=== PATIENT | female | born 1990 | race Caucasian/White ===

== ENCOUNTER 2022-12-29 11:07 | Outpatient (OUT) | payer OTHER, SELFPAY ==
[2022-12-29 12:00] LABS: Estimated Average Glucose 111 mg/dL; Glycohemoglobin A1C 5.5 % (4.5-6.2)
[2022-12-29 12:06] LABS: Basophils Absolute Auto 0.1 10^3/uL (0.0-0.1); Basophils Percent Auto 0.7 % (0.2-2.0); Eosinophils Absolute Auto 0.2 10^3/uL (0.0-0.7); Eosinophils Percent Auto 2.1 % (0.9-7.0); Hematocrit 42.6 % (36.0-48.0); Hemoglobin 13.9 g/dL (12.0-16.0); Immature Granulocytes Abs Auto 0.03 10^3/uL (0.00-0.03); Immature Granulocytes Pct Auto 0.3 % (0.0-0.5); Lymphocytes Absolute Auto 2.8 10^3/uL (1.2-3.8); Lymphocytes Percent Auto 32.8 % (20.5-60.0); Mean Corpuscular HGB Conc 32.6 g/dL (29.9-35.2); Mean Corpuscular Hemoglobin 27.6 pg (26.7-34.0); Mean Corpuscular Volume 84.7 fL (81.0-99.0); Mean Platelet Volume 8.6 fL (9.5-13.5); Monocytes Absolute Auto 0.4 10^3/uL (0.3-0.8); Monocytes Percent Auto 4.4 % (1.7-12.0); Neutrophils Absolute Auto 5.1 10^3/uL (1.4-6.5); Neutrophils Percent Auto 59.7 % (43.0-75.0); Platelet Count 393 10^3/uL (150-450); Red Blood Count 5.03 10^6/uL (4.20-5.40); Red Cell Distribution Width 14.8 % (11.0-15.0); White Blood Count 8.6 10^3/uL (4.0-11.0)
[2022-12-29 13:42] LABS: Alanine Aminotransferase 33 U/L (14-59); Albumin Globulin Ratio 0.9; Albumin Level 3.8 g/dL (3.4-5.0); Alkaline Phosphatase 91 U/L (46-116); Aspartate Amino Transferase 23 U/L (15-37); Bilirubin Total 0.4 mg/dL (0.2-1.0); Calcium 8.6 mg/dL (8.5-10.1); Carbon Dioxide 24.7 mmol/L (21.0-32.0); Chloride 104 mmol/L (98-107); Chol HDL Ratio 3.8; Cholesterol 204 mg/dL (<=200); Estimated GFR (African America >60 (>=60); Estimated GFR (Non-African Ame >60 (>=60); Free T3 3.05 pg/mL (2.18-3.98); Globulin 4.1 g/dL; Glucose 81 mg/dL (74-106); HDL Cholesterol 53 mg/dL (40-60); Potassium 3.7 mmol/L (3.5-5.1); Sodium 139 mmol/L (136-145); Thyroid Stimulating Hormone 0.884 uIU/mL (0.358-3.740); Total Protein 7.9 g/dL (6.4-8.2); Triglycerides 101 mg/dL (<=150); VLDL CHOLESTEROL 20.2 mg/dL
[2022-12-30 12:20] LABS: Insulin 8.2 uIU/mL (2.6-24.9)
== END 2022-12-29 11:08 | disposition home or self-care (01) ==
LOC: LAB 11:13
PROVIDERS: PCP Family Medicine; Visit Provider Family Medicine
DX: G43.909 Migraine, unspecified, not intractable, without status migrainosus (principal); E78.00 Pure hypercholesterolemia, unspecified; R53.83 Other fatigue; R73.09 Other abnormal glucose; Z79.899 Other long term (current) drug therapy; E11.9 Type 2 diabetes mellitus without complications; E55.9 Vitamin D deficiency, unspecified
CPT/HCPCS: 36415; 80053; 80061; 82306; 83036; 83525; 83540; 84436; 84443; 84481; 85025

== ENCOUNTER 2022-12-29 11:18 | Outpatient (OUT) | payer SELFPAY ==
[2023-09-04 09:05] LABS: QuantiFERON-TB Gold Plus NEGATIVE
== END 2022-12-29 11:19 | disposition home or self-care (01) ==
PROVIDERS: PCP Family Medicine
DX: Z79.899 Other long term (current) drug therapy (principal); L70.0 Acne vulgaris; L40.0 Psoriasis vulgaris
CPT/HCPCS: 36415; 86480

== ENCOUNTER 2023-01-08 15:37 | Outpatient (OUT) | payer OTHER, SELFPAY ==
--- NOTE | 2023-01-08 15:40 | MR_ITS ---
The [address] [address] Patient Name: SOTO HOPE MRN: [facility]:[id number] date: 1990 Sex: F Assigned Patient Location: MRI Current Patient Location: Accession/Order Number: [id number] Exam Date: 01/08/2023 16:00 Report Date: 01/09/2023 06:34 At the request of: NADER MICHEL Procedure: MR head/brain wo con EXAMINATION: MR head/brain wo con HISTORY: Migraine G43.909 COMPARISON: No relevant comparison available. TECHNIQUE: A variety of imaging planes and parameters were utilized for visualization of suspected pathology. Images were performed without contrast. FINDINGS: CEREBRUM: No edema, hemorrhage, mass, acute infarction, or inappropriate atrophy. CEREBELLUM: No edema, hemorrhage, mass, acute infarction, or inappropriate atrophy. BRAINSTEM: No edema, hemorrhage, mass, acute infarction, or inappropriate atrophy. CSF SPACES: Ventricles, cisterns, and sulci are appropriate for age. No hydrocephalus, subarachnoid hemorrhage, or mass. SKULL: No mass or other significant visible lesion. SINUSES: Limited views demonstrate no significant mucosal thickening or fluid. ORBITS: Limited views are unremarkable. OTHER: Negative. MR/MR head/brain wo con IMPRESSION: 1. No hemorrhage, mass, or suspicious findings to account for patient's symptoms. Electronically authenticated by: JOSH RAE Date: 01/09/2023 06:34
[2023-01-08 16:08] LABS: HCG Qualitative Urine* NEGATIVE (NEGATIVE)
== END 2023-01-08 15:38 | disposition home or self-care (01) ==
LOC: MRI 15:38
PROVIDERS: PCP Family Medicine; Visit Provider Family Medicine
DX: G43.909 Migraine, unspecified, not intractable, without status migrainosus (principal)
CPT/HCPCS: 70551; 84703

== ENCOUNTER 2023-02-27 12:49 | Outpatient (OUT) | payer OTHER, SELFPAY ==
--- NOTE | 2023-02-27 12:53 | US_ITS ---
The [address] [address] Patient Name: SOTO HOPE MRN: [id number] date: 1990 Sex: F Assigned Patient Location: Current Patient Location: US Accession/Order Number: [id number] Exam Date: 02/27/2023 13:00 Report Date: 02/27/2023 13:46 At the request of: THANH MESSER Procedure: US pelvis transvaginal EXAMINATION: US pelvis transvaginal HISTORY: Menorrhagia With Irregular Cycle N92.1 COMPARISON: No relevant comparison available. TECHNIQUE: Transabdominal and/or transvaginal sonographic examination was performed as indicated by examination type. FINDINGS: UTERUS: Bicornuate uterus. Normal size, contour, and echotexture. Uterus size: 7.9 x 4.8 x 3.2 cm ENDOMETRIUM: Normal homogeneous appearance. Endometrial thickness: 4 mm RIGHT OVARY: Normal size and appearance. Duplex Doppler demonstrates normal waveform and flow; resistive index 0.5. Ovary size: 3.1 x 2.2 x 1.5 cm LEFT OVARY: Normal size and appearance. Duplex Doppler demonstrates normal waveform and flow; resistive index 0.4. Ovary size: 2.4 x 3.2 x 2.5 cm CUL-DE-SAC: Unremarkable. No significant free fluid. BLADDER: Unremarkable. OTHER: None. US/US pelvis transvaginal IMPRESSION: 1. Bicornuate uterus. Otherwise unremarkable uterus and ovaries. Electronically authenticated by: JOSH RAE Date: 02/27/2023 13:46
[2023-02-27 14:00] LABS: Basophils Absolute Auto 0.1 10^3/uL (0.0-0.1); Basophils Percent Auto 0.7 % (0.2-2.0); Eosinophils Absolute Auto 0.1 10^3/uL (0.0-0.7); Hematocrit 41.5 % (36.0-48.0); Hemoglobin 13.5 g/dL (12.0-16.0); Immature Granulocytes Abs Auto 0.03 10^3/uL (0.00-0.03); Immature Granulocytes Pct Auto 0.3 % (0.0-0.5); Lymphocytes Absolute Auto 3.1 10^3/uL (1.2-3.8); Lymphocytes Percent Auto 30.2 % (20.5-60.0); Mean Corpuscular HGB Conc 32.5 g/dL (29.9-35.2); Mean Corpuscular Hemoglobin 27.9 pg (26.7-34.0); Mean Corpuscular Volume 85.7 fL (81.0-99.0); Mean Platelet Volume 8.7 fL (9.5-13.5); Monocytes Absolute Auto 0.6 10^3/uL (0.3-0.8); Monocytes Percent Auto 5.4 % (1.7-12.0); Neutrophils Absolute Auto 6.4 10^3/uL (1.4-6.5); Neutrophils Percent Auto 62.4 % (43.0-75.0); Platelet Count 401 10^3/uL (150-450); Red Blood Count 4.84 10^6/uL (4.20-5.40); Red Cell Distribution Width 13.3 % (11.0-15.0); White Blood Count 10.3 10^3/uL (4.0-11.0)
[2023-02-27 14:04] LABS: INR 0.94; Partial Thromboplastin Time 27.3 sec (22.3-36.2)
[2023-02-27 14:38] LABS: Estimated Average Glucose 114 mg/dL; Glycohemoglobin A1C 5.6 % (4.5-6.2)
[2023-02-27 14:45] LABS: HCG Quantitative <1 mIU/mL; Thyroid Stimulating Hormone 0.972 uIU/mL (0.358-3.740)
[2023-02-27 15:04] LABS: Free T4 1.01 ng/dL (0.76-1.46)
== END 2023-02-27 12:50 | disposition home or self-care (01) ==
LOC: US 12:50
PROVIDERS: PCP Family Medicine; Visit Provider Physician Assistant
DX: N92.1 Excessive and frequent menstruation with irregular cycle (principal); Q51.3 Bicornate uterus
CPT/HCPCS: 36415; 76830; 83036; 84439; 84443; 84702; 85025; 85610; 85730

== ENCOUNTER 2023-09-11 11:09 | Outpatient (OUT) | payer OTHER, SELFPAY ==
--- NOTE | 2023-09-11 11:16 | US_ITS ---
[address] [address] Patient Name: SOTO HOPE MRN: [id number] date: 1990 Sex: F Assigned Patient Location: US Current Patient Location: Accession/Order Number: [id number] Exam Date: 09/11/2023 11:19 Report Date: 09/12/2023 05:39 At the request of: CRISTOPHER LIN Procedure: US pelvis transvaginal EXAMINATION: US pelvis transvaginal HISTORY: bleeding after intercourse N93.0 COMPARISON: Ultrasound pelvis 02/27/2023 TECHNIQUE: Transabdominal and/or transvaginal sonographic examination was performed as indicated by examination type. FINDINGS: UTERUS: Normal size and appearance. Uterus size: 7.5 x 5.0 x 3.3 cm ENDOMETRIUM: Normal homogeneous appearance. Endometrial thickness: 8 mm RIGHT OVARY: Normal size and appearance. Duplex Doppler demonstrates normal waveform and flow; resistive index 0.5. Ovary size: 2.8 x 1.9 x 1.8 cm LEFT OVARY: Contains a 2.6 cm benign-appearing cyst. Duplex Doppler demonstrates normal waveform and flow; resistive index 0.5. Ovary size: 4.7 x 3.9 x 2.8 cm CUL-DE-SAC: Unremarkable. No significant free fluid. BLADDER: Unremarkable. OTHER: None. US/US pelvis transvaginal IMPRESSION: 1. Incidental benign-appearing left ovarian cyst. 2. No suspicious findings to account for patient's symptoms. Electronically authenticated by: JOSH RAE Date: 09/12/2023 05:39
== END 2023-09-11 11:10 | disposition home or self-care (01) ==
LOC: US 11:10
PROVIDERS: PCP Family Medicine; Visit Provider Obstetrics & Gynecology
DX: N93.0 Postcoital and contact bleeding (principal); N83.292 Other ovarian cyst, left side
CPT/HCPCS: 76830

== ENCOUNTER 2023-10-26 21:33 | Outpatient (REF) | payer OTHER, SELFPAY | END 2023-10-26 21:34 | disposition home or self-care (01) | LOC: LAB 21:33 | PROVIDERS: PCP Family Medicine; Visit Provider Obstetrics & Gynecology | DX: Z01.419 Encounter for gynecological examination (general) (routine) without abnormal findings (principal) | CPT/HCPCS: G0145 ==

== ENCOUNTER 2023-11-03 16:25 | Outpatient (OUT) | payer OTHER, SELFPAY ==
--- OUTSIDE RECORDS SUMMARY | 2023-11-03 16:30 | XMS_ITS ---
Patient Summarization (C-CDA 2.1 CCD) Created on: November 03, 2023 JAYYERICRENETTA Tila : 1990 Sex: Female Author Organization Sample organization Care Team Providers Care Sales Record Clerk Name Role Phone SANTO SANCHES Unavailable Unavailable Eduardo Escalona Unavailable Unavailable NONE, XXXX Unavailable Unavailable Huseyin, Catherine Unavailable Unavailable NONE, XXXX Unavailable Unavailable Kati, WHITE SIDEWALL TIRE BUFFER-C Nany Elizabeth Attending Provider [phone] RY GRAVES Admitting Unavailable RY GRAVES Attending Unavailable HOY ., DR DOE Primary Care Unavailable RY GRAVES Consulting Unavailable DELIA ., DR NICHOLAS Admitting Unavailable DELIA ., DR NICHOLAS Attending Unavailable HOY ., DR DOE Primary Care Unavailable DELIA ., DR NICHOLAS Consulting Unavailable REQUEST, DR MCCALL LISTED Admitting Unavaila ble REQUEST, DR MCCALL LISTED Attending Unavaila ble HOY ., DR DOE Primary Care Unavailable REQUEST, DR MCCALL LISTED Consulting Unavaila ble HOBrock ., DR DOE Admitting Unavailable HOY ., DR DOE Attending Unavailable HOY ., DR DOE Primary Care Unavailable Kati, Nany A Attending Unavailable Nany Parikh Admitting Unavailable Nader Bryan Primary Care Unavailable THANH MESSER Attending Unavailable ZAKI MARTINEZ Attending Unavailable ZAKI MARTINEZ Referring Unavailable DELIA, CRISTOPHER Attending Unavailable DELIA, CRISTOPHER Attending Unavailable DELIA, CRISTOPHER Attending Unavailable Encounters Encounter Date Encounter Type Care Provider Facility Start: 10-26-2023 End: 10-26-2023 ambulatory CRISTOPHER DELIA Not Available Start: 09-03-2023 End: 09-03-2023 ambulatory CRISTOPHER DELIA Not Available Start: 08-10-2023 End: 08-10-2023 ambulatory ZAKI MARTINEZ Not Available Start: 06-11-2023 End: 06-11-2023 ambulatory THANH MESSER Not Available Start: 05-07-2023 End: 05-07-2023 ambulatory CRISTOPHER DELIA Not Available Start: 10-01-[address] NADER BRYAN . Facili ty:[facility] Start: 09-26-2022 End: 09-26-2022 ambulatory Nany Parikh [facility] Work Phone: Start: 09-26-2022 End: 09-26-2022 Departed Referred [employer] BU[employer]-C Nany Parikh Work Phone: [facility] [employer] Work Phone: Start: 01-09-2022 End: 01-10-2022 ambulatory RY GRAVES Facility:[facility] Start: 12-14-2021 End: 12-15-2021 ambulatory NONE LISTED REQUEST Facility:[facility] Start: 10-22-2021 End: 10-22-[address] CRISTOPHER LIN . Facility:[facility] Start: 07-23-2017 [facility] Start: 01-28-2017 End: 01-29-2017 Ambulatory Catherine Fontanez Facility:[id number] Payers Date Payer Category Payer Private Health Insurance [id number] 2022 Private Health Insurance [id number] 1990 Unknown [id number] 2.16.84 [id number] 1990 Unknown [id number] 1990 Unknown [id number] .[id number] 1990 Unknown [id number] 2.16.84 [id number] 1990 Unknown [id number] 2.16.84 [id number] 1990 Unknown [id number] 2.16.84 [id number] 1990 Unknown [id number] 2.16.84 [id number] 1990 Unknown [id number] 2.16.840 .[id number] 1990 Unknown [id number] [id number] 1957 Self-pay 1957 Unknown [id number] Unknown [id number] 2.16.8 [id number] Plan of Treatment Date Care Activity Detail Author Start: 09-26-2022 Superficial Wound Culture Superficial Wound Culture [facility] Bacteria identified in Unspecified specimen by Aerobe culture [facility] Problems Active Problems Problem Classification Problem Date Documented Da te Episodic/Chronic Other inflammatory condition of skin (4 sources) Psoriasis vulgaris; Translations: [PSORIASIS VULGARIS] Onset: 12-14-2021 Chronic Other inflammatory condition of skin (1 source) Other psoriatic arthropathy; Translations: [OTHER PSORIATIC ARTHROPATHY] Onset: 12-18-2021 Chronic Skin and subcutaneous tissue infections (1 source) Furuncle of neck; Translations: [Furuncle of neck] Onset: 09-26-2022 Episodic Past or Other Problems Problem Classification Problem Date Documented Date Episodic/Chronic Immunizations and screening for infectious disease (1 source) Encounter for screening for human papillomavirus (HPV); Translations: [ENC SCREENING HUMAN PAPILLOMAVIRUS] Onset: 10-25-2021 Episodic Other aftercare (1 source) Other intermediate manager (current) drug therapy; Translations: [OTH SKILLED NURSING CURRENT DRUG THERAPY] Onset: 12-18-2021 Episodic Other screening for suspected conditions (not mental disorders or infectious disease) (4 sources) Encounter for screening for malignant neoplasm of cervix; Translations: [ENC SCREENING MALIG NEOPLASM CERV] Onset: 10-22-2021 Episodic Other skin disorders (1 source) Acne vulgaris; Translations: [ACNE VULGARIS] Onset: 12-18-2021 Episodic Other upper respiratory infections (4 sources) Acute pharyngitis, unspecified; Translations: [ACUTE PHARYNGITIS UNSPECIFIED] Onset: 01-09-2022 Episodic Unclassified (1 source) Bone marrow donor; 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 marrow donor] Onset: 07-23-2017 Episodic Results Test Name Value Interpretation Reference Range Facility Superficial Wound Cultureon 09-26-2022 Superficial Wound Culture MID POSTERIOR NECK ORGANISM: Staphylococcus aureus (O:STAAUR) Quantity of Growth Moderate Growth Aerobic GRANT Charge (PCMIC38) -- SUSCEPTIBILITY - ORGANISM: O:STAAUR ANTIBIOTIC INTERPRETATION GRANT Azithromycin S <2 Ceftaroline S <0.5 Ciprofloxacin S <1 Clindamycin S 0.5 Daptomycin S 1 Levofloxacin S <1 Linezolid S 2 Oxacillin S 0.5 Penicillin ALVERTO >2 Tetracycline S <4 Trimethoprim/Sulfametho xazole S <0.5 Vancomycin S 1 S = SUSCEPTIBLE I = INTERMEDIATE R = RESISTANT BLANK = DATA NOT AVAILABLE, OR DRUG NOT ADVISABLE OR TESTED R* = RESISTANCE DUE TO EXTENDED SPECTRUM BETA-LACTAMASES ESBL = EXTENDED SPECTRUM BETA-LACTAMASE TFG = THYMIDINE-DEPENDENT STRAIN ALVERTO = BETA-LACTAMASE POSITIVE IB = INDUCIBLE BETA-LACTAMASE. APPEARS IN PLACE OF 'S' WITH SPECIES KNOWN TO POSSESS INDUCIBLE BETA-LACTAMASES. POTENTIALLY THEY MAY BECOME RESISTANT TO ALL B-LACTAM DRUGS. PERFORMED BY: [place] [address] PATHOLOGIST ACCOUNTING ASSISTANT MERISSA SINHA M.D. Normal [facility] Comment on above: Performed By: #### C USUP #### [address] GROUP A STREP CULTUREon S. pyogenes Ag Ql (Unsp spec) Culture Observations: NEGATIVE FOR GROUP A STREPTOCOCCUS. Normal [facility] Comment on above: Performed By: #### G RASTCX, SSCRN #### [facility] [address] [address] [address] Benson Logan STREPT SCREENon 01-09-2022 STREP SCREEN A Negative Normal NEGATIVE [facility] Comment on above: Performed By: #### G RASTCX, SSCRN #### [facility] [address] [address] [address] Benson Logan QUANTIFERON TB GOLD PLUSon 0 12-17-2021 QuantiFERON Criteria Comment Normal [facility] Comment on above: Result Comment: The QuantiFERON-TB Gold Plus result is determined by subtracting the Nil value from either TB antigen (Ag) tube. The mitogen tube serves as a control for the test. Performed By: #### Q NTTB #### [facility] [address] [place] [address] Dr. Benson Logan QuantiFERON Incubation Incubation performed. Normal [facility] Comment on above: Performed By: #### Q NTTB #### [facility] [address] [place] [address] Dr. Benson Logan QuantiFERON Mitogen Value >10.00 Normal [facility] Comment on above: Performed By: #### Q NTTB #### [facility] [address] [place] [address] Dr. Benson Logan QuantiFERON Nil Value 0.00 IU/mL Normal [facility] Comment on above: Performed By: #### Q NTTB #### [facility] [address] [place] [address] Dr. Benson Logan QuantiFERON TB1 Ag Value 0.00 IU/mL Normal [facility] Comment on above: Performed By: #### Q NTTB #### [facility] [address] [place] [address] Dr. Benson Logan QuantiFERON TB2 Ag Value 0.00 IU/mL Normal [facility] Comment on above: Performed By: #### Q NTTB #### [facility] [address] [place] [address] Dr. Benson Logan QuantiFERON-TB Gold Plus Negative Normal Negative [facility] Comment on above: Result Comment: Chem iluminescence immunoassay methodology Performed By: #### Q NTTB #### [facility] [address] [place] [address] Dr. Benson Logan CBC AUTO DIFFon 12-14-2021 BASO # 0.1 103/ul Normal 0.0-0.1 [facility] Comment on above: Performed By: #### C BC #### [facility] [address] [place] [address] Dr. Benson Logan Basophils/100 WBC (Bld) 0.9 % Normal 0.2-2.0 [facility] Comment on above: Performed By: #### C BC #### [facility] [address] [place] [address] Dr. Benson Logan EO # 0.3 103/ul Normal 0.0-0.7 [facility] Comment on above: Performed By: #### C BC #### [facility] [address] [place] [address] Dr. Benson Logan Eosinophils/100 WBC (Bld) 3.1 % Normal 0.9-7.0 [facility] Comment on above: Performed By: #### C BC #### [facility] [address] [place] [address] Dr. Benson Logan Erythrocyte distribution width (RBC) [Ratio] 17.2 % Critically high 11.0-15.0 [facility] Comment on above: Performed By: #### C BC #### [facility] [address] [place] [address] Dr. Benson Logan Hematocrit (Bld) [Volume fraction] 39.0 % Normal 36.0-48.0 [facility] Comment on above: Performed By: #### C BC #### [facility] [address] [place] [address] Dr. Benson Logan Hemoglobin (Bld) [Mass/Vol] 12.3 g/dL Normal 12.0-16.0 [facility] Comment on above: Performed By: #### C BC #### [facility] [address] [place] [address] Dr. Benson Logan IG # 0.02 10e3/ul Normal 0.00-0.03 [facility] Comment on above: Performed By: #### C BC #### [facility] [address] [place] [address] Dr. Benson Logan IG % 0.3 % Normal 0.0-0.5 [facility] Comment on above: Performed By: #### C BC #### [facility] [address] [place] [address] Dr. Benson Logan LYMPH # 2.8 103/ul Normal 1.2-3.8 [facility] Comment on above: Performed By: #### C BC #### [facility] [address] [place] [address] Dr. Benson Logan Lymphocytes/100 WBC (Bld) 34.7 % Normal 20.5-60.0 [facility] Comment on above: Performed By: #### C BC #### [facility] [address] [place] [address] Dr. Benson Logan MANUAL DIFF REQ NO Normal [facility] Comment on above: Performed By: #### C BC #### [facility] [address] [place] [address] Dr. Benson Logan MCH (RBC) [Entitic mass] 26.1 pg Critically low 26.7-34.0 [facility] Comment on above: Performed By: #### C BC #### [facility] [address] [place] [address] Dr. Benson Logan MCHC (RBC) [Mass/Vol] 31.5 g/dL Normal 29.9-35.2 [facility] Comment on above: Performed By: #### C BC #### [facility] [address] [place] [address] Dr. Benson Logan MCV (RBC) [Entitic vol] 82.6 fL Normal 81.0-99.0 [facility] Comment on above: Performed By: #### C BC #### [facility] [address] [place] [address] Dr. Benson Logan MONO # 0.7 103/ul Normal 0.3-0.8 [facility] Comment on above: Performed By: #### C BC #### [facility] [address] [place] [address] Dr. Benson Logan Monocytes/100 WBC (Bld) 8.8 % Normal 1.7-12.0 [facility] Comment on above: Performed By: #### C BC #### [facility] [address] [place] [address] Dr. Benson Logan NEUT # 4.2 103/ul Normal 1.4-6.5 [facility] Comment on above: Performed By: #### C BC #### [facility] [address] [address] [address] Benson Logan Neutrophils/100 WBC (Bld) 52.2 % Normal 43.0-75.0 [facility] Comment on above: Performed By: #### C BC #### [facility] [address] [place] [address] Dr. Benson Logan Platelet mean volume (Bld) [Entitic vol] 8.6 fL Critically low 9.5-13.5 [facility] Comment on above: Performed By: #### C BC #### [facility] [address] [place] [address] Dr. Benson Logan PLT 390 103/ul Normal 150-450 [facility] Comment on above: Performed By: #### C BC #### [facility] [address] [place] [address] Dr. Benson Logan RBC 4.72 106/ul Normal 4.20-5.40 [facility] Comment on above: Performed By: #### C BC #### [facility] [address] [place] [address] Dr. Benson Logan WBC 8.0 103/ul Normal 4.0-11.0 [facility] Comment on above: Performed By: #### C BC #### [facility] [address] [place] [address] Dr. Benson Logan LIPID PROFILEon 12-14-2021 CHOL-HDL RATIO NORM SEE BELOW Normal [facility] Comment on above: Result Comment: 3.3 - 4.4 LOW RISK 4.4 - 7.1 AVERAGE RISK 7.1 - 11.0 MODERATE RISK >11.0 HIGH RISK Performed By: #### L IPID, CMP #### [facility] [address] [place] [address] Dr. Benson Logan Cholesterol [Mass/Vol] 150 mg/dL Normal <=200 [facility] Comment on above: Performed By: #### L IPID, CMP #### [facility] [address] [place] [address] Dr. Benson Logan Cholesterol in HDL [Mass/Vol] 50 mg/dL Normal 40-60 [facility] Comment on above: Performed By: #### L IPID, CMP #### [facility] [address] [address] [address] Benson Logan Cholesterol in LDL [Mass/Vol] 76.0 mg/dL Normal [facility] Comment on above: Performed By: #### L IPID, CMP #### [facility] [address] [address] [address] Benson Logan Cholesterol.total/ Cholesterol in HDL [Mass ratio] 3.0 {ratio} Normal [facility] Comment on above: Performed By: #### L IPID, CMP #### [facility] [address] [address] [address] Benson Logan HDL NORMAL > or = 60 mg/dl - LO W CARDIOVASCULAR RISK <40 mg/dl - HIGH CARDIOVASCULAR RISK Normal [facility] Comment on above: Performed By: #### L IPID, CMP #### [facility] [address] [address] [address] Benson Logan LDL CALC NORMAL SEE BELOW Normal [facility] Comment on above: Result Comment: <100 mg/dl OPTIMAL 100 - 129 mg/dl NEAR OR ABOVE OPTIMAL 130 - 159 mg/dl BORDERLINE HIGH 160 - 189 mg/dl HIGH >190 mg/dl VERY HIGH Performed By: #### L IPID, CMP #### [facility] [address] [address] [address] Benson Logan Triglyceride [Mass/Vol] 120 mg/dL Normal <=150 [facility] Comment on above: Performed By: #### L IPID, CMP #### [facility] [address] [address] [address] Benson Logan VLDL CALC 24.0 mg/dL Normal [facility] Comment on above: Performed By: #### L IPID, CMP #### [facility] [address] [address] [address] Benson Logan PROF 14(COMP METB)on 022 Albumin [Mass/Vol] 3.6 g/dL Normal 3.4-5.0 [facility] Comment on above: Performed By: #### L IPID, CMP #### [facility] [address] [address] [address] Benson Logan Albumin/Globulin [Mass ratio] 1.0 {ratio} Normal [facility] Comment on above: Performed By: #### L IPID, CMP #### [facility] [address] [address] [address] Benson Logan ALP [Catalytic activity/Vol] 76 U/L Normal 46-116 [facility] Comment on above: Performed By: #### L IPID, CMP #### [facility] [address] [address] [address] Benson Logan ALT [Catalytic activity/Vol] 48 U/L Normal 14-59 [facility] Comment on above: Performed By: #### L IPID, CMP #### [facility] [address] [address] [address] Benson Logan Anion gap [Moles/Vol] 10.7 mmol/L Normal [facility] Comment on above: Performed By: #### L IPID, CMP #### [facility] [address] [address] [address] Benson Logan AST [Catalytic activity/Vol] 24 U/L Normal 15-37 [facility] Comment on above: Performed By: #### L IPID, CMP #### [facility] [address] [address] [address] Benson Logan Bilirubin [Mass/Vol] 0.4 mg/dL Normal 0.2-1.0 [facility] Comment on above: Performed By: #### L IPID, CMP #### [facility] [address] [address] [address] Benson Logan Calcium [Mass/Vol] 8.8 mg/dL Normal 8.5-10.1 [facility] Comment on above: Performed By: #### L IPID, CMP #### [facility] [address] [address] [address] Benson Logan Chloride [Moles/Vol] 105 mmol/L Normal 98-107 [facility] Comment on above: Performed By: #### L IPID, CMP #### [facility] [address] [address] [address] Benson Logan CO2 [Moles/Vol] 27.3 mmol/L Normal 21.0-32.0 [facility] Comment on above: Performed By: #### L IPID, CMP #### [facility] [address] [address] [address] Benson Logan Creatinine [Mass/Vol] 0.83 mg/dL Normal 0.55-1.02 [facility] Comment on above: Performed By: #### L IPID, CMP #### [facility] [address] [address] [address] Benson Logan EGFR-AF NORWEGIAN >60 Normal >=60 [facility] Comment on above: Performed By: #### L IPID, CMP #### [facility] [address] [address] [address] Benson Logan EGFR-NON AF NORWEGIAN >60 Normal >=60 [facility] Comment on above: Performed By: #### L IPID, CMP #### [facility] [address] [address] [address] Benson Logan Globulin (S) [Mass/Vol] 3.5 g/dL Normal [facility] Comment on above: Performed By: #### L IPID, CMP #### [facility] [address] [address] [address] Benson Logan Glucose [Mass/Vol] 94 mg/dL Normal 74-106 [facility] Comment on above: Performed By: #### L IPID, CMP #### [facility] [address] [address] [address] Benson Logan Potassium [Moles/Vol] 4.0 mmol/L Normal 3.5-5.1 [facility] Comment on above: Performed By: #### L IPID, CMP #### [facility] [address] [address] [address] Benson Logan Protein [Mass/Vol] 7.1 g/dL Normal 6.4-8.2 [facility] Comment on above: Performed By: #### L IPID, CMP #### [facility] [address] [address] [address] Benson Logan Sodium [Moles/Vol] 139 mmol/L Normal 136-145 [facility] Comment on above: Performed By: #### L IPID, CMP #### [facility] [address] [address] [address] Benson Logan Urea nitrogen [Mass/Vol] 10.0 mg/dL Normal 7.0-18.0 [facility] Comment on above: Performed By: #### L IPID, CMP #### [facility] [address] [place] [address] Dr. Benson Logan Urea nitrogen/Creatinin e [Mass ratio] 12.0 mg/mg [facility] Comment on above: Performed By: #### L IPID, CMP #### [facility] [address] [place] [address] Dr. Benson Logan PAP ACOG PANEL 2: 23 to 31on 10-28-2021 . . [facility] Comment on above: Performed By: #### 4 [id number] #### [facility] [address] [place] [address] Dr. Benson Logan Age Gdln ACOG Testing - [facility] Comment on above: Performed By: #### 4 [id number] #### [facility] [address] [place] [address] Dr. Benson Logan DIAGNOSIS: Comment [facility] Comment on above: Result Comment: NEGA TIVE FOR INTRAEPITHELIAL LESION OR MALIGNANCY. Performed By: #### 4 [id number] #### [facility] [address] [place] [address] Dr. Benson Logan Methodology: Comment [facility] Comment on above: Result Comment: This liquid based ThinPrep(R) pap test was screened with the use of an image guided system. Performed By: #### 4 [id number] #### [facility] [address] [place] [address] Dr. Benson Logan Note: Comment [facility] Comment on above: Result Comment: The Pap smear is a screening test designed to aid in the detection of premalignant and malignant conditions of the uterine cervix. It is not a diagnostic procedure and should not be used as the sole means of detecting cervical cancer. Both false-positive and false-negative reports do occur. . Performed By: #### 4 [id number] #### [facility] [address] [address] [address] Benson Logan Performed by: Comment Normal [facility] Comment on above: Result Comment: Kiki Bond, Outpatient Coding Specialist (ASCP) Performed By: #### 4 [id number] #### [facility] [address] [address] [address] Benson Logan Reflex Criteria: Comment Normal [facility] Comment on above: Result Comment: The HPV DNA reflex criteria were not met with this specimen result therefore, no HPV testing was performed. . Performed By: #### 4 [id number] #### [facility] [address] [address] [address] Benson Logan Specimen adequacy: Comment Normal [facility] Comment on above: Result Comment: Sati sfactory for evaluation. Endocervical and/or squamous metaplastic cells (endocervical component) are present. Performed By: #### 4 [id number] #### [facility] [address] [address] [address] Benson Garner 08-03-2017 [facility] Telephone (HEMAMN) RENETTA HOPE ([id number]) 1990 F BMDDate Time Provider Department08/03/17 RAMONA DAVIS (RN) JONATHAN During your visit today, we recorded the following information about you:Ramona Davis RN, RN 08/03/2017 11:25 AM SignedLeft message with instructions to call this RN back to discuss tissue typingresults.Ramona Davis, RNRamona Davis RN, RN 08/03/2017 4:05 PM Anoop Hope was notified she is not an HLA match to potential [facility] recipient,Alfredo Hope. Renetta Hope gave verbal consent to disclose HLA test results toAlfredo Hope.Renetta Hope was encouraged to call with any further questions or concerns andverbalized understanding.Ramona Davis RNAllkeny As of Date: 08/03/2017(Not on File)Date Reviewed: Never ReviewedReason for Visit: Tissue Typing/HLA [1543]Problem List As Of Date: 08/03/2017(None)[facility] [id number] Status:Closed by RAMONA DAVIS on 08/03/17 Normal [facility] Social History Date Type Detail Facility Start: 1990 Sex Assigned At Female F [facility] Tobacco smoking stat [facility] Unknown if ever smoked [facility] Work Phone: Evaluation note Note Date & Type Note Facility Evaluation note No assessment information availa ble [facility] Work Phone: Summary Purpose Family History No Family History Records FoundNo Family History Records FoundNo Family History Records FoundNo Family History Records FoundNo Family History Records Found Advance Directives No Advanced Directives Records FoundNo Advanced Directives Records FoundNo Advanced Directives Records FoundNo Advanced Directives Records FoundNo Advanced Directives Records Found Additional Source Comments INFORMATION SOURCE (unrecogn ized section and content) DATE CREATED AUTHOR 11/27/2017 [facility] DATE CREATED AUTHOR AUTHOR'S ORGANIZ ATION 12/02/2017 [facility] DATE CREATED AUTHOR AUTHOR'S ORGANIZ ATION 10/02/2022 [facility] DATE CREATED AUTHOR AUTHOR'S ORGANIZ ATION 10/05/2022 [facility] DATE CREATED AUTHOR AUTHOR'S ORGANIZ ATION 10/28/2023 [facility] EPIC Care Teams (unrecognized sec tion and content) Team Status: Inactive Member Role Status Dates Nany Parikh [employer] Attending Provider Active Goals (unrecognized section and content) Goals may be documented in a n alternate section FOR RECORDS PERTAINING TO PATIENTS WHO ARE OR HAVE BEEN ENROLLED IN A CHEMICAL DEPENDENCY/SUBSTANCEABUSE PROGRAM, SOME INFORMATION MAY BE OMITTED. This clinical summary was aggregated from multiple sources. Caution should be exercised in using it in the provision of clinical care. This summary normalizes information from multiple sources, and as a consequence, information in this document may materially change the coding, format and clinical context of patient data. In addition, data may be omitted in some cases. CLINICAL DECISIONS SHOULD BE BASED ON THE PRIMARY CLINICAL RECORDS. [facility]. provides no warranty or guarantee of the accuracy or completeness of information in this document.
--- OUTSIDE RECORDS SUMMARY | 2023-11-03 16:46 | XMS_ITS | CCD ---
Author Organization [facility] Care Team Providers Care Innovation Manager Name Role Phone SANTO SANCHES Unavailable Unavailable Eduardo Escalona Unavailable Unavailable NONE, XXXX Unavailable Unavailable Huseyin, Catherine Unavailable Unavailable NONE, XXXX Unavailable Unavailable Kati, MEDICAL RESEARCH ASSOCIATE-C Nany Elizabeth Attending Provider [phone] RY GRAVES Admitting Unavailable RY GRAVES Attending Unavailable ANAND ., DR DOE Primary Care Unavailable RY GRAVES Consulting Unavailable DELIA ., DR NICHOLAS Admitting Unavailable DELIA ., DR NICHOLAS Attending Unavailable HOY ., DR DOE Primary Care Unavailable DELIA ., DR NICHOLAS Consulting Unavailable REQUEST, DR MCCALL LISTED Admitting Unavaila ble REQUEST, DR MCCALL LISTED Attending Unavaila ble HOY ., DR DOE Primary Care Unavailable REQUEST, DR MCCALL LISTED Consulting Unavaila ble HOY ., DR DOE Admitting Unavailable HOY ., DR DOE Attending Unavailable HOY ., DR DOE Primary Care Unavailable Kati, Nany A Attending Unavailable Nany Parikh Admitting Unavailable Nader Bryan Primary Care Unavailable THANH MESSER Attending Unavailable ZAKI MARTINEZ Attending Unavailable ZAKI MARTINEZ Referring Unavailable DELIA, CRISTOPHER Attending Unavailable DELIA, CRISTOPHER Attending Unavailable DELIA, CRISTOPHER Attending Unavailable Problems Active Problems Problem Classification Problem Date [...] 10-25-2021 Episodic Other aftercare (1 source) 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 PERFORMED BY: [facility] [place] [id number] PATHOLOGIST CUSTOMER SOLUTIONS REPRESENTATIVE MERISSA SINHA M.D. Normal [facility] Comment on above: Performed By: #### C USUP #### [address] GROUP A STREP CULTUREon 08-0 S. pyogenes Ag Ql (Unsp spec) Culture Observations: NEGATIVE FOR GROUP A STREPTOCOCCUS. Normal [facility] Comment on above: Performed By: #### G RASTCX, SSCRN #### [facility] [address] [place] [address] Dr. Benson Logan STREPT SCREENon 01-09-2022 STREP SCREEN A Negative Normal NEGATIVE [facility] Comment on above: Performed By: #### G RASTCX, SSCRN #### [facility] [address] [place] [address] Dr. Benson Logan QUANTIFERON TB GOLD PLUSon 0 12-17-2021 QuantiFERON Criteria Comment Normal [facility] Comment on above: Result Comment: The QuantiFERON-TB Gold Plus result is determined by subtracting the Nil value from either TB antigen (Ag) tube. The mitogen tube serves as a control for the test. Performed By: #### Q NTTB #### [facility] [address] [place] [address] Dr. Benson Logan QuantiFERON Incubation Incubation performed. Normal [facility] Comment on above: Performed By: #### Q NTTB #### [facility] [address] [place] [address] Dr. Benson Logan QuantiFERON Mitogen Value >10.00 [facility] Comment on above: Performed By: #### Q NTTB #### [facility] [address] [place] [address] Dr. Benson Logan QuantiFERON Nil Value 0.00 IU/mL [facility] Comment on above: Performed By: #### Q NTTB #### [facility] [address] [place] [address] Dr. Benson Logan QuantiFERON TB1 Ag Value 0.00 IU/mL [facility] Comment on above: Performed By: #### Q NTTB #### [facility] [address] [place] [address] Dr. Benson Logan QuantiFERON TB2 Ag Value 0.00 IU/mL Normal [facility] Comment on above: Performed By: #### Q NTTB #### [facility] [address] [place] [address] Dr. Benson Logan QuantiFERON-TB Gold Plus Negative Normal Negative [facility] Comment on above: Result Comment: Chem iluminescence immunoassay methodology Performed By: #### Q NTTB #### [facility] [address] [place] [address] Dr. Benson Logan CBC AUTO DIFFon 12-14-2021 BASO # 0.1 103/ul Normal 0.0-0.1 [facility] Comment on above: Performed By: #### C BC #### [facility] [address] [place] [address] Dr. Benson Logan Basophils/100 WBC (Bld) 0.9 % Normal 0.2-2.0 [facility] Comment on above: Performed By: #### C BC #### [facility] [address] [place] [address] Dr. Benson Logan EO # 0.3 103/ul Normal 0.0-0.7 [facility] Comment on above: Performed By: #### C BC #### [facility] [address] [place] [address] Dr. Benson Logan Eosinophils/100 WBC (Bld) 3.1 % Normal 0.9-7.0 [facility] Comment on above: Performed By: #### C BC #### [facility] [address] [place] [address] Dr. Benson Logan Erythrocyte distribution width (RBC) [Ratio] 17.2 % Critically high 11.0-15.0 [facility] Comment on above: Performed By: #### C BC #### [facility] [address] [place] [address] Dr. Benson Logan Hematocrit (Bld) [Volume fraction] 39.0 % Normal 36.0-48.0 [facility] Comment on above: Performed By: #### C BC #### [facility] [address] [address] [address] Benson Logan Hemoglobin (Bld) [Mass/Vol] 12.3 g/dL Normal 12.0-16.0 [facility] Comment on above: Performed By: #### C BC #### [facility] [address] [address] [address] Benson Logan IG # 0.02 10e3/ul Normal 0.00-0.03 [facility] Comment on above: Performed By: #### C BC #### [facility] [address] [address] [address] Benson Logan IG % 0.3 % Normal 0.0-0.5 [facility] Comment on above: Performed By: #### C BC #### [facility] [address] [place] [address] Dr. Benson Logan LYMPH # 2.8 103/ul Normal 1.2-3.8 [facility] Comment on above: Performed By: #### C BC #### [facility] [address] [place] [address] Dr. Benson Logan Lymphocytes/100 WBC (Bld) 34.7 % Normal 20.5-60.0 [facility] Comment on above: Performed By: #### C BC #### [facility] [address] [place] [address] Dr. Benson Logan MANUAL DIFF REQ NO Normal [facility] Comment on above: Performed By: #### C BC #### [facility] [address] [address] [address] Benson Logan MCH (RBC) [Entitic mass] 26.1 pg Critically low 26.7-34.0 [facility] Comment on above: Performed By: #### C BC #### [facility] [address] [address] [address] Benson Logan MCHC (RBC) [Mass/Vol] 31.5 g/dL Normal 29.9-35.2 [facility] Comment on above: Performed By: #### C BC #### [facility] [address] [address] [address] Benson Logan MCV (RBC) [Entitic vol] 82.6 fL Normal 81.0-99.0 [facility] Comment on above: Performed By: #### C BC #### [facility] [address] [address] [address] Benson Logan MONO # 0.7 103/ul Normal 0.3-0.8 [facility] Comment on above: Performed By: #### C BC #### [facility] [address] [address] [address] Benson Logan Monocytes/100 WBC (Bld) 8.8 % Normal 1.7-12.0 [facility] Comment on above: Performed By: #### C BC #### [facility] [address] [place] [address] Dr. Benson Logan NEUT # 4.2 103/ul Normal 1.4-6.5 [facility] Comment on above: Performed By: #### C BC #### [facility] [address] [place] [address] Dr. Benson Logan Neutrophils/100 WBC (Bld) 52.2 % Normal 43.0-75.0 [facility] Comment on above: Performed By: #### C BC #### [facility] [address] [place] [address] Dr. Benson Logan Platelet mean volume (Bld) [Entitic vol] 8.6 fL Critically low 9.5-13.5 [facility] Comment on above: Performed By: #### C BC #### [facility] [address] [place] [address] Dr. Benson Logan PLT 390 103/ul Normal 150-450 [facility] Comment on above: Performed By: #### C BC #### [facility] [address] [place] [address] Dr. Benson Logan RBC 4.72 106/ul Normal 4.20-5.40 [facility] Comment on above: Performed By: #### C BC #### [facility] [address] [address] [address] Benson Logan WBC 8.0 103/ul Normal 4.0-11.0 [facility] Comment on above: Performed By: #### C BC #### [facility] [address] [address] [address] Benson Logan LIPID PROFILEon 12-14-2021 CHOL-HDL RATIO NORM SEE BELOW Normal [facility] Comment on above: Result Comment: 3.3 - 4.4 LOW RISK 4.4 - 7.1 AVERAGE RISK 7.1 - 11.0 MODERATE RISK >11.0 HIGH RISK Performed By: #### L IPID, CMP #### [facility] [address] [address] [address] Benson Logan Cholesterol [Mass/Vol] 150 mg/dL Normal <=200 [facility] Comment on above: Performed By: #### L IPID, CMP #### [facility] [address] [address] [address] Benson Logan Cholesterol in HDL [Mass/Vol] 50 mg/dL Normal 40-60 [facility] Comment on above: Performed By: #### L IPID, CMP #### [facility] [address] [address] [address] Benson Lgoan Cholesterol in LDL [Mass/Vol] 76.0 mg/dL Normal [facility] Comment on above: Performed By: #### L IPID, CMP #### [facility] [address] [address] [address] Benson Logan Cholesterol.total/ Cholesterol in HDL [Mass ratio] 3.0 {ratio} Normal [facility] Comment on above: Performed By: #### L IPID, CMP #### [facility] [address] [address] [address] Benson Logan HDL NORMAL > or = 60 mg/dl - LO W CARDIOVASCULAR RISK <40 mg/dl - HIGH CARDIOVASCULAR RISK Normal [facility] Comment on above: Performed By: #### L IPID, CMP #### [facility] [address] [address] [address] Benson Logan LDL CALC NORMAL SEE BELOW Normal [facility] Comment on above: Result Comment: <100 mg/dl OPTIMAL 100 - 129 mg/dl NEAR OR ABOVE OPTIMAL 130 - 159 mg/dl BORDERLINE HIGH 160 - 189 mg/dl HIGH >190 mg/dl VERY HIGH Performed By: #### L IPID, CMP #### [facility] [address] [place] [address] Dr. Benson Logan Triglyceride [Mass/Vol] 120 mg/dL Normal <=150 [facility] Comment on above: Performed By: #### L IPID, CMP #### [facility] [address] [address] [address] Benson Logan VLDL CALC 24.0 mg/dL Normal [facility] Comment on above: Performed By: #### L IPID, CMP #### [facility] [address] [place] [address] Dr. Benson Logan PROF 14(COMP METB)on 022 Albumin [Mass/Vol] 3.6 g/dL Normal 3.4-5.0 [facility] Comment on above: Performed By: #### L IPID, CMP #### [facility] [address] [place] [address] Dr. Benson Logan Albumin/Globulin [Mass ratio] 1.0 {ratio} Normal [facility] Comment on above: Performed By: #### L IPID, CMP #### [facility] [address] [place] [address] Dr. Benson Logan ALP [Catalytic activity/Vol] 76 U/L Normal 46-116 [facility] Comment on above: Performed By: #### L IPID, CMP #### [facility] [address] [place] [address] Dr. Benson Logan ALT [Catalytic activity/Vol] 48 U/L Normal 14-59 [facility] Comment on above: Performed By: #### L IPID, CMP #### [facility] [address] [place] [address] Dr. Benson Logan Anion gap [Moles/Vol] 10.7 mmol/L Normal [facility] Comment on above: Performed By: #### L IPID, CMP #### [facility] [address] [address] [address] Benson Logan AST [Catalytic activity/Vol] 24 U/L Normal 15-37 [facility] Comment on above: Performed By: #### L IPID, CMP #### [facility] [address] [address] [address] Benson Logan Bilirubin [Mass/Vol] 0.4 mg/dL Normal 0.2-1.0 [facility] Comment on above: Performed By: #### L IPID, CMP #### [facility] [address] [address] [address] Benson Logan Calcium [Mass/Vol] 8.8 mg/dL Normal 8.5-10.1 [facility] Comment on above: Performed By: #### L IPID, CMP #### [facility] [address] [place] [address] Dr. Benson Logan Chloride [Moles/Vol] 105 mmol/L Normal 98-107 [facility] Comment on above: Performed By: #### L IPID, CMP #### [facility] [address] [place] [address] Dr. Benson Logan CO2 [Moles/Vol] 27.3 mmol/L Normal 21.0-32.0 [facility] Comment on above: Performed By: #### L IPID, CMP #### [facility] [address] [place] [address] Dr. Benson Logan Creatinine [Mass/Vol] 0.83 mg/dL Normal 0.55-1.02 [facility] Comment on above: Performed By: #### L IPID, CMP #### [facility] [address] [place] [address] Dr. Benson Logan EGFR-AF MALAGASY >60 Normal >=60 [facility] Comment on above: Performed By: #### L IPID, CMP #### [facility] [address] [place] [address] Dr. Benson Logan EGFR-NON AF MALAGASY >60 Normal >=60 [facility] Comment on above: Performed By: #### L IPID, CMP #### [facility] [address] [address] [address] Benson Logan Globulin (S) [Mass/Vol] 3.5 g/dL Normal [facility] Comment on above: Performed By: #### L IPID, CMP #### [facility] [address] [address] [address] Benson Logan Glucose [Mass/Vol] 94 mg/dL Normal 74-106 [facility] Comment on above: Performed By: #### L IPID, CMP #### [facility] [address] [place] [address] Dr. Benson Logan Potassium [Moles/Vol] 4.0 mmol/L Normal 3.5-5.1 [facility] Comment on above: Performed By: #### L IPID, CMP #### [facility] [address] [place] [address] Dr. Benson Logan Protein [Mass/Vol] 7.1 g/dL Normal 6.4-8.2 [facility] Comment on above: Performed By: #### L IPID, CMP #### [facility] [address] [place] [address] Dr. Benson Logan Sodium [Moles/Vol] 139 mmol/L Normal 136-145 [facility] Comment on above: Performed By: #### L IPID, CMP #### [facility] [address] [place] [address] Dr. Benson Logan Urea nitrogen [Mass/Vol] 10.0 mg/dL Normal 7.0-18.0 [facility] Comment on above: Performed By: #### L IPID, CMP #### [facility] [address] [place] [address] Dr. Benson Logan Urea nitrogen/Creatinin e [Mass ratio] 12.0 mg/mg Normal [facility] Comment on above: Performed By: #### L IPID, CMP #### [facility] [address] [place] [address] Dr. Benson Logan PAP ACOG PANEL 2: 21 to 29on 10-28-2021 . . Normal [facility] Comment on above: Performed By: #### [id number] #### [facility] [address] [place] [address] Dr. Benson Logan Age Gdln ACOG Testing 21-29 [facility] Comment on above: Performed By: #### [id number] #### [facility] [address] [place] [address] Dr. Benson Logan DIAGNOSIS: Comment Normal [facility] Comment on above: Result Comment: NEGA TIVE FOR INTRAEPITHELIAL LESION OR MALIGNANCY. Performed By: #### [id number] #### [facility] [address] [place] [address] Dr. Benson Logan Methodology: Comment [facility] Comment on above: Result Comment: This liquid based ThinPrep(R) pap test was screened with the use of an image guided system. Performed By: #### [id number] #### [facility] [address] [place] [address] Dr. Benson Logan Note: Comment [facility] Comment on above: Result Comment: The Pap smear is a screening test designed to aid in the detection of premalignant and malignant conditions of the uterine cervix. It is not a diagnostic procedure and should not be used as the sole means of detecting cervical cancer. Both false-positive and false-negative reports do occur. . Performed By: #### [id number] #### [facility] [address] [place] [address] Dr. Benson Logan Performed by: Comment Normal [facility] Comment on above: Result Comment: Kiki Bond, Neonatal Nurse Practitioner (ASCP) Performed By: #### [id number] #### [facility] [address] [place] [address] Dr. Benson Logan Reflex Criteria: Comment [facility] Comment on above: Result Comment: The HPV DNA reflex criteria were not met with this specimen result therefore, no HPV testing was performed. . Performed By: #### [id number] #### [facility] [address] [place] [address] Dr. Benson Logan Specimen adequacy: Comment Normal [facility] Comment on above: Result Comment: Sati sfactory for evaluation. Endocervical and/or squamous metaplastic cells (endocervical component) are present. Performed By: #### 4 [id number] #### [facility] [address] [place] [address] Dr. Benson Garner 08-03-2017 CNPN Telephone (HEMAMN) RENETTA HOPE ([id number]) 1990 F BMDDate Time Provider Department08/03/17 RAMONA DAVIS (RN) HEMAMN During your visit today, we recorded the following information about you:Ramona Davis RN, RN 08/03/2017 11:25 AM SignedLeft message with instructions to call this RN back to discuss tissue typingresults.Lisette Ellison RN, RN 08/03/2017 4:05 PM SignedOrtizsaeed Hope was notified she is not an HLA match to potential [facility] recipient,Alfredo Hope. Renetta M Russell gave verbal consent to disclose HLA test results toAlfredo Hope.Renetta M Russell was encouraged to call with any further questions or concerns andverbalized understanding.Flakito Ellison As of Date: 08/03/2017(Not on File)Date Reviewed: Never ReviewedReason for Visit: Tissue Typing/HLA [1543]Problem List As Of Date: 08/03/2017(None)[facility] [id number] Status:Closed by ARMONA DAVIS on 08/03/17 [facility] Encounters Encounter Date Encounter Type Care Provider Facility Start: 10-26-2023 End: 10-26-2023 ambulatory CRISTOPHER DELIA Not Available Start: 09-03-2023 End: 09-03-2023 ambulatory CRISTOPHER DELIA Not Available Start: 08-10-2023 End: 08-10-2023 ambulatory ZAKI MARTINEZ Not Available Start: 06-11-2023 End: 06-11-2023 ambulatory THANH GUI Not Available Start: 05-07-2023 End: 05-07-2023 ambulatory CRISTOPHER LIN Not Available Start: 10-01-[address] NADER BRYAN . 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 Facility:[facility] Start: 07-23-2017 Ambulatory SANTO rg [facility] Start: 01-28-2017 End: 01-29-2017 Ambulatory Catherine Fontanez Facility:CD:[id number] Plan of Treatment Date Care Activity Detail Author Start: 09-26-2022 Superficial Wound Culture Superficial Wound Culture [facility] Bacteria identified in Unspecified specimen by Aerobe culture [facility] Payers Date Payer Category Payer Private Health Insurance [id number] 2022 Private Health Insurance [id number] 1990 Unknown [id number] 07.24. [id number] 1990 Unknown [id number] 07.24.83 [id number] 1992 Unknown [id number] 1990 Unknown [id number] 07.24.83 [id number] 1992 Unknown [id number] 2.16.84 [id number] 1992 Unknown [id number] 2.16.84 [id number] 1992 Unknown [id number] 2.16.84 [id number] 1992 Unknown [id number] 2.16.840 .[id number] 1990 Unknown [id number] 2.16.840 .[id number] 1957 Self-pay 1957 Unknown [id number] Unknown [id number] 2.16.8 [id number] Social History Date Type Detail Facility Tobacco smoking stat [facility] Unknown if ever smoked [facility] Work Phone: Start: 1990 Sex Assigned At Female [facility] Evaluation note Note Date & Type Note Facility Evaluation note No assessment information availa ble [facility] Work Phone: Summary Purpose Family History [...] section and content) DATE CREATED AUTHOR 11/27/2017 [facility] DATE CREATED AUTHOR AUTHOR'S ORGANIZ ATION 12/02/2017 [facility] DATE CREATED AUTHOR AUTHOR'S ORGANIZ ATION 10/02/2022 [facility] DATE CREATED AUTHOR AUTHOR'S ORGANIZ ATION 10/05/2022 [facility] DATE CREATED AUTHOR AUTHOR'S ORGANIZ ATION 10/28/2023 [facility] [employer] Care Teams (unrecognized sec tion and content) Team Status: Inactive Member Role Status Dates CARLY Cartagena Attending Provider Active Goals (unrecognized section and [...] BE BASED ON THE PRIMARY CLINICAL RECORDS. [facility]. provides no warranty or guarantee of the accuracy or completeness of information in this document.
[2023-11-03 17:11] LABS: Estimated Average Glucose 114 mg/dL; Glycohemoglobin A1C 5.6 % (4.5-6.2)
== END 2023-11-03 16:26 | disposition home or self-care (01) ==
LOC: LAB 16:27
PROVIDERS: PCP Family Medicine; Visit Provider Obstetrics & Gynecology
DX: E88.819 Insulin resistance, unspecified (principal)
CPT/HCPCS: 36415; 83036

== ENCOUNTER 2024-11-30 19:50 | Outpatient (REF) | payer OTHER, SELFPAY ==
--- OUTSIDE RECORDS SUMMARY | 2024-11-30 20:11 | XMS_ITS | CCD ---
Author Organization [facility] Care Team Providers Care Command And Control Officer Name Role Phone SANTO SANCHES Unavailable Unavailable Eduardo Escalona Unavailable Unavailable NONE, XXXX Unavailable Unavailable Huseyin, Catherine Unavailable Unavailable NONE, XXXX Unavailable Unavailable Kati, COMMUNITY REINVESTMENT ACT OFFICER-C Nany Elizabeth Attending Provider CHRISTINE GRAVES Admitting Unavailable CHRISTINE GRAVES Attending Unavailable ANAND ., DR DOE Primary Care Unavailable CHRISTINE GRAVES Consulting Unavailable AZAM ., DR NICHOLAS Admitting Unavailable AZAM ., DR NICHOLAS Attending Unavailable HOY ., DR DOE Primary Care Unavailable AZAM ., DR NICHOLAS Consulting Unavailable REQUEST, DR MCCALL LISTED Admitting Unavaila ble REQUEST, DR MCCALL LISTED Attending Unavaila ble HOY ., DR ODE Primary Care Unavailable REQUEST, DR MCCALL LISTED Consulting Unavaila ble HOY ., DR DOE Admitting Unavailable HOY ., DR DOE Attending Unavailable HOY ., DR DOE Primary Care Unavailable Kati, Nany A Attending Unavailable Nany Parikh A Admitting Unavailable Nader Bryan Primary Care Unavailable [place] Gustavo PARISH Primary Care Provider [phone] Nader Bryan MD Primary Care Provider [phone] CUTLER GUSTAVO L Attending Unavailable GUI, MONIKA Attending Unavailable GUI, MONIKA Referring Unavailable CUTLER, GUSTAVO L Attending Unavailable CUTLER, GUSTAVO L Attending Unavailable CUTLER, GUSTAVO L Attending Unavailable CUTLER, GUSTAVO L Attending Unavailable CUTLER, GUSTAVO L Attending Unavailable CUTLER, GUSTAVO L Attending Unavailable CUTLER, GUSTAVO L Referring Unavailable CUTLER, GUSTAVO L Attending Unavailable CUTLER, GUSTAVO L Attending Unavailable [place] DOGustavo Primary Care Provider [phone] Medications Current Medications Medication Drug Class(es) Dates Sig (Normalized) Sig (Original) amitriptyline hydrochloride 50 mg oral tablet (20 sources) Tricyclic Antidepressant Start: 01-28-2024 take 1 tablet by mouth at bedtime amitriptyline (Elavil) 50 MG tablet Indications: Chronic migraine without aura without status migrainosus, not intractable Take 1 tablet (50 mg) by mouth at bedtime 90 tablet 1 11/15/2024 Active Start: 08-10-2023 End: 01-28-2024 take 1 tablet by mouth at bedtime amitriptyline (Elavil) 25 MG tablet Indications: Chronic migraine without aura without status migrainosus, not intractable (CMS/HCC) Take 1 tablet (25 mg) by mouth at bedtime 90 tablet 1 08/10/2023 01/28/2024 Discontinued (Reorder) atomoxetine 25 mg oral capsule (20 sources) Norepinephrine Reuptake Inhibitor Start: 09-21-2024 take 1 capsule by mouth once daily atomoxetine (Strattera) 25 MG capsule Indications: Attention deficit hyperactivity disorder (ADHD), predominantly inattentive type Take 1 capsule (25 mg) by mouth Daily 90 capsule 1 09/21/2024 Active Start: 08-10-2023 End: 05-30-2024 take 1 capsule by mouth once daily atomoxetine (Strattera) 10 MG capsule Indications: Attention deficit hyperactivity disorder (ADHD), predominantly inattentive type (CMS/HCC) TAKE 1 CAPSULE (10 MG) BY MOUTH DAILY 90 capsule 1 05/30/2024 Active buPROPion hydrochloride 75 mg oral tablet (5 sources) Aminoketone Start: 11-02-2024 End: 11-02-2025 take 2 tablets by mouth in the morning buPROPion (Wellbutrin) 75 MG tablet Indications: Class 2 obesity due to excess calories without serious comorbidity with body mass index (BMI) of 39.0 to 39.9 in adult Take 2 tablets (150 mg) by mouth in the morning and 2 tablets (150 mg) before bedtime. 120 tablet 11 11/02/2024 11/02/2025 Active cephalexin 500 mg oral capsule (2 sources) Cephalosporin Antibacterial Start: 10-05-2024 End: 10-12-2024 take 1 capsule by mouth in the morning cephalexin (Keflex) 500 MG capsule Indications: Omphalitis in adult Take 1 capsule (500 mg) by mouth in the morning and 1 capsule (500 mg) before bedtime. Do all this for 7 days. 14 capsule 10/05/2024 10/12/2024 Active 1 ml ixekizumab 80 mg/ml prefilled syringe (20 sources) Interleukin-17A Antagonist Start: 09-28-2024 Ixekizumab (Taltz Syringe) 80 mg/mL syringe Active 80 MG SUBCUT EVERY 2 WEEKS September 28, 2024 12:00am Start: 12-05-2022 Taltz 80 MG/ML injection 12/05/2022 Active levonorgestrel 0.783485 mg/hr intrauterine system (20 sources) Progestin, Progestin-containing Intrauterine Device Start: 05-07-2023 Levonorgestrel intrauterine device 52 mg meclizine hydrochloride 25 mg oral tablet (20 sources) Antiemetic Start: 09-28-2024 take 1 tablet by mouth once daily as needed Meclizine 25 mg tablet Active 25 MG PO Daily as needed September 28, 2024 12:00am Start: 09-02-2024 take 1 tablet by flower three times daily as needed for dizziness meclizine (Antivert) 25 MG tablet Indications: Vertigo Take 1 tablet (25 mg) by mouth 3 (three) times a day as needed for dizziness 30 tablet 1 09/02/2024 Active Start: 01-28-2024 End: 04-19-2024 take 1 tablet by mouth three times daily as needed for dizziness meclizine (Antivert) 25 MG tablet Indications: Vertigo Take 1 tablet (25 mg) by mouth 3 (three) times a day as needed for dizziness 30 tablet 1 04/19/2024 Active nabumetone 750 mg oral tablet (13 sources) Nonsteroidal Anti-inflammatory Drug Start: 08-24-2024 nabumetone (Relafen) 750 MG tablet 08/24/2024 Active naltrexone hydrochloride 50 mg oral tablet (5 sources) Opioid Antagonist Start: 11-02-2024 End: 11-02-2025 take 39-39.9 tablets by mouth once daily naltrexone (Depade) 50 MG tablet Indications: Class 2 obesity due to excess calories without serious comorbidity with body mass index (BMI) of 39.0 to 39.9 in adult Take 1 tablet (50 mg) by mouth Daily 30 tablet 11 11/02/2024 11/02/2025 Active naratriptan 2.5 mg oral tablet (14 sources) Serotonin-1b and Serotonin-1d Receptor Agonist Start: 09-28-2024 take 2 tablets by mouth every twenty-four hours as needed Naratriptan 2.5 mg tablet Active 2.5 MG PO Every 4 hours as needed September 28, 2024 12:00am do not exceed 2 doses per 24 hrs Start: 08-25-2024 take 1 tablet by mouth once na ratriptan (Amerge) 2.5 MG tablet Indications: Migraine without aura and without status migrainosus, not intractable Take 1 tablet (2.5 mg) by mouth 1 (one) time if needed for migraine 9 tablet 3 08/25/2024 Active take 1 tablet by flower th every four hours as needed for headache, then take 2 tablets by mouth once daily as needed for headache naratriptan (AMERGE) 2.5 mg tablet Take 2.5 mg by mouth as needed for migraine headache (see administration instructions). May repeat dose after 4 hours if needed. Maximum daily dose is 5 mg per day. Active nystatin [id number] unt/ml topical cream (5 sources) Polyene Antifungal Start: 10-05-2024 End: 11-04-2024 nystatin (Mycostatin) cream Indications: Omphalitis in adult Apply topically in the morning and before bedtime. 45 g 10/05/2024 11/04/2024 Active pantoprazole 40 mg delayed release oral tablet (20 sources) Proton Pump Inhibitor Start: 09-21-2024 take 1 tablet by mouth in the morning pantoprazole (ProtoNix) 40 MG EC tablet Indications: Gastroesophageal reflux disease without esophagitis Take 1 tablet (40 mg) by mouth in the morning and 1 tablet (40 mg) before bedtime. Do not crush, chew, or split. 180 tablet 1 09/21/2024 Active Start: 08-10-2023 End: 05-30-2024 take 1 tablet by mouth before mealtime pantoprazole (ProtoNix) 40 MG EC tablet Indications: Gastroesophageal reflux disease without esophagitis TAKE 1 TABLET (40 MG) BY MOUTH IN THE MORNING. TAKE BEFORE MEALS. DO NOT CRUSH, CHEW, OR SPLIT.. 90 tablet 1 05/30/2024 Active rimegepant 75 mg disintegrating oral tablet (20 sources) Start: 11-02-2024 End: 11-02-2024 take 1 tablet by mouth every other day Rimegepant Sulfate (Nurtec) 75 MG tablet dispersible Indications: Chronic migraine without aura without status migrainosus, not intractable Take 75 mg by mouth every other day 16 tablet 2 11/02/2024 Active Start: 08-01-2024 End: 11-02-2024 take 1 tablet by mouth every twenty-four hours as needed Rimegepant Sulfate (Nurtec) 75 MG tablet dispersible Take 75 mg by mouth Daily as needed (at onset of migraine) 8 tablet 2 11/02/2024 11/02/2024 Discontinued spironolactone 50 mg oral tablet (20 sources) Aldosterone Antagonist Start: 12-15-2023 End: 11-02-2024 take 1 tablet by mouth in the morning spironolactone (Aldactone) 50 MG tablet Indications: Acne, unspecified acne type Take 1 tablet (50 mg) by mouth in the morning and 1 tablet (50 mg) before bedtime. 180 tablet 1 11/02/2024 Active triamcinolone acetonide 1 mg/ml topical cream (20 sources) Corticosteroid triamcinolone (Kenalog) 0.1 % cream Apply 1 application topically in the morning and 1 application before bedtime. Active valACYclovir 1000 mg oral tablet (5 sources) Herpesvirus Nucleoside Analog DNA Polymerase Inhibitor, Herpes Simplex Virus Nucleoside Analog DNA Polymerase Inhibitor, Herpes Zoster Virus Nucleoside Analog DNA Polymerase Inhibitor Start: 11-03-2024 take 2 tablets by mouth in the morning valACYclovir (Valtrex) 1 g tablet Indications: Cold sore Take 2 tablets (2,000 mg) by mouth in the morning and 2 tablets (2,000 mg) before bedtime. 4 tablet 2 11/03/2024 Active Start: 04-28-2024 End: 05-05-2024 take 1 tablet by mouth every eight hours valACYclovir (Valtrex) 1 g tablet Indications: Herpes zoster without complication Take 1 tablet (1,000 mg) by mouth every 8 (eight) hours for 7 days 21 tablet 04/28/2024 05/05/2024 Completed/Discontinued Medications Medication Drug Class(es) Dates Sig (Normalized) Sig (Original) [id number]-SLST LUTHER PO (10 sources) End: 11-30-2024 [id number]-GVYM-JIEPY LARISSA PO Take by mouth 11/30/2024 Discontinued KIFDQSGEC-FLTY-M ALERIAN PO Take by mouth Active 24 hr metFORMIN hydrochloride 500 mg extended release oral tablet (3 sources) Biguanide Start: 08-10-2023 End: 08-09-2024 take 1 tablet by mouth every twenty-four hours at mealtime metFORMIN XR (Glucophage-XR) 500 MG 24 hr tablet Indications: Encounter for weight management Take 1 tablet (500 mg) by mouth in the evening. Take with meals Do not crush, chew, or split. 30 tablet 11 08/10/2023 01/28/2024 Discontinued minocycline 50 mg oral capsule (3 sources) Tetracycline-class Drug Start: 11-11-2023 End: 01-28-2024 take 1 tablet by mouth in the morning minocycline 50 MG capsule Indications: Acne, unspecified acne type TAKE 1 TABLET (50 MG) BY MOUTH IN THE MORNING AND 1 TABLET (50 MG) BEFORE BEDTIME. 60 capsule 1 11/11/2023 01/28/2024 Discontinued phentermine hydrochloride 37.5 mg oral tablet (20 sources) Sympathomimetic Amine Anorectic Start: 04-28-2024 End: 11-02-2024 take 40-44.9 tablets by mouth before mealtime phentermine (Adipex-P) 37.5 MG tablet Indications: Class 3 severe obesity due to excess calories without serious comorbidity with body mass index (BMI) of 40.0 to 44.9 in adult Take 1 tablet (37.5 mg) by mouth in the morning. Take before meals. 30 tablet 08/01/2024 11/02/2024 Discontinued RHUBARB-ASHWAGANDH A-MAGNESIUM PO (10 sources) End: 11-30-2024 RHUBARB-ASHWAGANDHA -MAGNESIUM PO Take by mouth 11/30/2024 Discontinued RHUBARB-ASHWAGAN DHA-MAGNESIUM PO Take by mouth Active 0.25 mg, 0.5 mg dose 1.5 ml semaglutide 1.34 mg/ml pen injector (6 sources) Start: 10-26-2023 End: 04-19-2024 semaglutide (Ozempic) 2 MG/1 .5ML solution pen-injector Indications: Prediabetes , Obesity (BMI 30-39.9) , Insulin resistance FIRST MONTH inject 0.25 mg under the skin once weekly; then SECOND MONTH inject 0.5 mg under the skin 1 (one) time per week for 4 doses. 1 each 1 10/26/2023 04/19/2024 Discontinued Semaglutide,0.25 or 0.5MG/DO S, (Ozempic, 0.25 or 0.5 MG/DOSE,) 2 MG/3ML solution pen-injector (6 sources) Start: 02-01-2024 End: 04-19-2024 Semaglutide,0.25 or 0.5MG/DO S, (Ozempic, 0.25 or 0.5 MG/DOSE,) 2 MG/3ML solution pen-injector Indications: Prediabetes Inject 0.5 mg under the skin 1 (one) time per week for 4 doses 3 mL 02/01/2024 04/19/2024 Discontinued Start: 12-31-2023 Semaglutide,0. 25 or 0.5MG/DOS, (Ozempic, 0.25 or 0.5 MG/DOSE,) 2 MG/3ML solution pen-injector Indications: Prediabetes Inject 0.5 mg under the skin 1 (one) time per week for 4 doses 3 mL 12/31/2023 Active TURMERIC CURCUMIN PO (10 sources) End: 11-30-2024 TURMERIC CURCUMIN PO Take by mouth 11/30/2024 Discontinued TURMERIC CURCUMI N PO Take by mouth Active Problems Active Problems Problem Classification Problem Date Documented Date Episodic/Chronic Anxiety disorders (4 sources) Generalized anxiety disorder; Translations: [Generalized anxiety disorder] 09-28-2024 Chronic Attention-deficit, conduct, and disruptive behavior disorders (20 sources) Attention deficit hyperactivity disorder; Translations: [Attention-deficit hyperactivity disorder, unspecified type] Onset: 08-10-2023 08-10-2023 Chronic Attention-deficit, conduct, and disruptive behavior disorders (1 source) Attention deficit hyperactivity disorder, predominantly inattentive type; Translations: [Attention-deficit hyperactivity disorder, predominantly inattentive type] 05-30-2024 Chronic Attention-deficit, conduct, and disruptive behavior disorders (1 source) Attention-deficit hyperactivity disorder, unspecified type; Translations: [Attention deficit disorder with hyperactivity] 09-28-2024 Chronic Conditions associated with dizziness or vertigo (4 sources) Vertigo; Translations: [Dizziness and giddiness] 04-19-2024 Episodic Contraceptive and procreative management (2 sources) Intrauterine contraceptive device in situ; Translations: [Encounter for routine checking of intrauterine contraceptive device] 08-01-2024 Episodic Esophageal disorders (20 sources) Gastroesophageal reflux disease without esophagitis; Translations: [Gastro-esophageal reflux disease without esophagitis] Onset: 08-10-2023 08-10-2023 Chronic Headache; including migraine (20 sources) Migraine without aura, not refractory ; Translations: [Chronic migraine without aura, not intractable, without status migrainosus] Onset: 08-10-2023 08-10-2023 Chronic Miscellaneous mental health disorders (2 sources) Chronic insomnia; Translations: [Psychophysiologic insomnia] 09-28-2024 Chronic Other inflammatory condition of skin (4 sources) Psoriasis vulgaris; Translations: [PSORIASIS VULGARIS] Onset: 12-14-2021 Chronic Other inflammatory condition of skin (1 source) Other psoriatic arthropathy; Translations: [OTHER PSORIATIC ARTHROPATHY] Onset: 12-18-2021 Chronic Other lower respiratory disease (1 source) Snoring; Translations: [Other respiratory abnormalities] 09-28-2024 Episodic Other nervous system disorders (1 source) Narcolepsy without cataplexy ; Translations: [Narcolepsy without cataplexy] 09-28-2024 Chronic Other nervous system disorders (1 source) Narcolepsy without cataplexy; Translations: [Narcolepsy, without cataplexy] 09-28-2024 Chronic Other nutritional; endocrine; and metabolic disorders (20 sources) Body mass index 30+ - obesity; Translations: [Obesity, unspecified] Onset: 11-12-2022 11-12-2022 Chronic Other nutritional; endocrine; and metabolic disorders (2 sources) Insulin resistance; Translations: [Insulin resistance] 04-19-2024 Chronic Other nutritional; endocrine; and metabolic disorders (8 sources) Severe obesity; Translations: [Class 3 severe obesity due to excess calories without serious comorbidity with body mass index (BMI) of 40.0 to 44.9 in adult ([facility])] 05-25-2024 Chronic Other nutritional; endocrine; and metabolic disorders (2 sources) Obesity caused by energy imbalance; Translations: [Class 2 obesity due to excess calories without serious comorbidity with body mass index (BMI) of 39.0 to 39.9 in adult] 11-02-2024 Chronic Other nutritional; endocrine; and metabolic disorders (2 sources) Abnormal weight gain; Translations: [Abnormal weight gain] 04-19-2024 Episodic Other skin disorders (4 sources) Acne; Translations: [Acne, unspecified] 05-25-2024 Episodic Residual codes; unclassified (1 source) Sleep apnea; Translations: [Sleep apnea, unspecified] 09-28-2024 Chronic Residual codes; unclassified (1 source) Hypersomnia; Translations: [Hypersomnia, unspecified] 09-28-2024 Chronic Residual codes; unclassified (1 source) Sleep paralysis; Translations: [Other sleep disorders] 09-28-2024 Chronic Residual codes; unclassified (1 source) Hypersomnia, unspecified; Translations: [Hypersomnia, unspecified] 09-28-2024 Chronic Residual codes; unclassified (1 source) Other sleep disorders; Translations: [Sleep related movement disorder, unspecified] 09-28-2024 Chronic Residual codes; unclassified (1 source) Hypnagogic hallucinations; Translations: [Other hallucinations] 09-28-2024 Episodic Residual codes; unclassified (1 source) Other hallucinations; Translations: [Hallucinations] 09-28-2024 Episodic Skin and subcutaneous tissue infections (3 sources) Furuncle of neck; Translations: [Omphalitis] Onset: 09-26-2022 10-05-2024 Episodic Viral infection (2 sources) Herpes zoster without complication; Translations: [Zoster without complications] 04-28-2024 Episodic Past or Other Problems Problem Classification Problem Date Documented Date Episodic/Chronic Diabetes mellitus without complication (20 sources) Prediabetes; Translations: [Prediabetes] Onset: 08-10-2023 08-10-2023 Episodic Immunizations and screening for infectious disease (1 source) Encounter for screening for human papillomavirus (HPV); Translations: [ENC SCREENING HUMAN PAPILLOMAVIRUS] Onset: 10-25-2021 Episodic Other aftercare (1 source) Other extermination supervisor (current) drug therapy; Translations: [OTH USP CURRENT DRUG THERAPY] Onset: 12-18-2021 Episodic Other connective tissue disease (2 sources) Fibromyalgia; Translations: [Fibromyalgia] 01-28-2024 Episodic Other lower respiratory disease (20 sources) Snoring; Translations: [Snoring] Onset: 10-30-2022 10-30-2022 Episodic Other nutritional; endocrine; and metabolic disorders (20 sources) Obesity; Translations: [Obesity, unspecified] Onset: 10-30-2022 Resolved: 10-30-2022 10-30-2022 Chronic Other screening for suspected conditions (not mental [...] Test Name Value Interpretation Reference Range Facility US PELVIS TRANSVAGINALon US PELVIS TRANSVAGINAL EXAM: US PELVIS TRANSVAGINAL HISTORY: IUD placement, cramping on and off after IUD placement. COMPARISON: None available. TECHNIQUE: Two-dimensional transvaginal grayscale ultrasound imaging of the pelvis was performed. Color flow Doppler imaging of the ovaries were also performed. FINDINGS: UTERUS 8.7 x 4.0 x 5.3 cm The uterus is anteverted in position and demonstrates a normal, homogeneous echotexture. Multiple nabothian cysts are visualized within the cervix. ENDOMETRIUM 0.9 cm The endometrium demonstrates a normal, homogeneous echotexture. The IUD is in the appropriate position within the endometrium. RIGHT OVARY 4.0 x 3.2 x 4.0 cm The right ovary demonstrates a normal echotexture. There is normal color Doppler flow. There is a 2.8 cm dominant follicle visualized. LEFT OVARY 3.2 x 1.7 x 2.8 cm The left ovary demonstrates a normal echotexture. There is normal color Doppler flow. No fluid is present within the cul-de-sac. IMPRESSION: 1. Unremarkable ultrasound of the pelvis. 2. IUD appropriate in position within the endometrium. 2. Normal color Doppler flow within the bilateral ovaries. Electronically Signed:Electronically signed by LOKI DEGROOT II, MD, PHD at 25-Aug-2024 08:47:08 AM [facility] Normal Not Available Comment on above: Order Comment: US PE LVIS TRANSVAGINAL No LMP recorded. Patient has had an implant. 235 lb CBC W Auto Differential pane l (Bld)on 04-23-2024 Basophils (Bld) [#/Vol] 0.1 10*3/uL [facility] Basophils/100 WBC (Bld) 1 % Not Estab. [facility] Eosinophils (Bld) [#/Vol] 0.2 10*3/uL [facility] Eosinophils/100 WBC (Bld) 2 % Not Estab. [facility] Erythrocyte distribution width (RBC) [Ratio] 14.6 % 11.7 - 15.4 % [facility] Hematocrit (Bld) [Volume fraction] 38.2 % 34.0 - 46.6 % [facility] Hemoglobin (Bld) [Mass/Vol] 11.9 g/dL 11.1 - 15.9 g/dL [facility] Immature granulocytes (Bld) [#/Vol] 0 10*3/uL [facility] Immature granulocytes/100 WBC (Bld) 0 % Not Estab. [facility] Lymphocytes (Bld) [#/Vol] 3.3 10*3/uL High [facility] Lymphocytes/100 WBC (Bld) 36 % Not Estab. [facility] MCH (RBC) [Entitic mass] 24.8 pg Low 26.6 - 33.0 pg [facility] MCHC (RBC) [Mass/Vol] 31.2 g/dL Low 31.5 - 35.7 g/dL [facility] MCV (RBC) [Entitic vol] 80 fL 79 - 97 fL [facility] Monocytes (Bld) [#/Vol] 0.6 10*3/uL [facility] Monocytes/100 WBC (Bld) 6 % Not Estab. [facility] Neutrophils (Bld) [#/Vol] 4.9 10*3/uL [facility] Neutrophils/100 WBC (Bld) 55 % Not Estab. [facility] Platelets (Bld) [#/Vol] 534 10*3/uL High [facility] RBC (Bld) [#/Vol] 4.79 10*6/uL [facility] WBC (Bld) [#/Vol] 9 10*3/uL [facility] Laboratory - Chemistry and C hemistry - challengeon 04-23-2024 Albumin [Mass/Vol] 4.3 g/dL 3.9 - 4.9 g/dL NO [facility] ALP [Catalytic activity/Vol] 90 U/L [facility] ALT [Catalytic activity/Vol] 29 U/L [facility] AST [Catalytic activity/Vol] 19 U/L [facility] Bilirubin [Mass/Vol] 0.2 mg/dL 0.0 - 1.2 mg/dL [facility] Calcium [Mass/Vol] 9.4 mg/dL 8.7 - 10. 2 mg/dL [facility] Chloride [Moles/Vol] 105 mmol/L 96 - 106 mmol/L [facility] CO2 [Moles/Vol] 25 mmol/L 20 - 29 mmol/L [facility] Cortisol [Mass/Vol] 8.6 ug/dL 6.2 - 19 .4 ug/dL [facility] Comment on above: Please Note: The ref erence interval and flagging for this test is for an AM collection. If this is a PM collection please use: Cortisol PM: 2.3-11.9 Creatinine [Mass/Vol] 0.78 mg/dL 0.57 - 1.00 mg/dL [facility] GFR/1.73 sq M.predicted among non-blacks MDRD (S/P/Bld) [Vol rate/Area] 104 mL/min/{1.73_m2} 59 - PINF mL/min/1.73 [facility] Globulin (S) [Mass/Vol] 2.8 g/dL 1.5 - 4.5 g/dL [facility] Glucose [Mass/Vol] 94 mg/dL 70 - 99 mg/dL [facility] Potassium [Moles/Vol] 4.6 mmol/L 3.5 - 5.2 mmol/L [facility] Protein [Mass/Vol] 7.1 g/dL 6.0 - 8.5 g/dL NO [facility] Sodium [Moles/Vol] 141 mmol/L 134 - 144 mmol/L [facility] Urea nitrogen [Mass/Vol] 14 mg/dL 6 - 20 mg/dL [facility] Urea nitrogen/Creatinine [Mass ratio] 18 mg/mg 9 - 23 [facility] Laboratory - Hematology and Cell countson 04-23-2024 HbA1c (Bld) [Mass fraction] 6.1 % High 4.8 - 5.6 % [facility] Comment on above: Prediabetes: 5.7 - 6 .4 Diabetes: >6.4 Glycemic control for adults with diabetes: <7.0 Lipid 1996 panelon Cholesterol [Mass/Vol] 160 mg/dL 100 - 199 mg/dL [facility] Cholesterol in HDL [Mass/Vol] 44 mg/dL 39 - PINF mg/dL [facility] Cholesterol in LDL [Mass/Vol] 97 mg/dL 0 - 99 mg/dL [facility] Cholesterol in VLDL [Mass/Vol] 19 mg/dL 5 - 40 mg/dL [facility] Triglyceride [Mass/Vol] 103 mg/dL 0 - 149 mg/dL [facility] No Panel Informationon 04-23 Interpretation and review of laboratory results Abnormal [facility] Performed at: - [address] [id number] Loss Prevention Manager: Abimael Buck PhD, Phone: [phone] [facility] Cervical or vaginal smear or scraping studyOrdered By: Sana Muñoz on 10-26-2023 [facility] Superficial Wound Cultureon 09-26-2022 Superficial Wound Culture MID POSTERIOR NECK ORGANISM: Staphylococcus aureus (O:STAAUR) Quantity of Growth Moderate Growth Aerobic GRANT Charge (PCMIC38) --- SUSCEPTIBILITY -- ORGANISM: O:STAAUR ANTIBIOTIC INTERPRETATION GRANT Azithromycin S <2 Ceftaroline S <0.5 Ciprofloxacin S <1 Clindamycin S 0.5 Daptomycin S 1 Levofloxacin S <1 Linezolid S 2 Oxacillin S 0.5 Penicillin ALVERTO >2 Tetracycline S <4 Trimethoprim/Sulfameth oxazole S <0.5 Vancomycin S 1 S = [...] RESISTANT TO ALL B-LACTAM DRUGS. PERFORMED BY: [place] [address] PATHOLOGIST TOBACCO SCRAP SIFTER MERISSA SINHA M.D. Normal [facility] Comment on above: Performed By: #### C USUP #### [address] GROUP A STREP CULTUREon 08-0 S. pyogenes Ag Ql (Unsp spec) Culture Observations: NEGATIVE FOR GROUP A STREPTOCOCCUS. Normal [facility] Comment on above: Performed By: #### G RASTCX, SSCRN #### [facility] [address] [place] [address] Dr. Benson Logan STREPT SCREENon 01-09-2022 STREP SCREEN A Negative Normal NEGATIVE [facility] Comment on above: Performed By: #### G RASTCX, SSCRN #### [facility] [address] [place] [address] Dr. Benson Logan QUANTIFERON TB GOLD PLUSon 0 12-17-[address] [facility] Comment on above: Result Comment: The QuantiFERON-TB Gold Plus result is determined by subtracting the Nil value from either TB antigen (Ag) tube. The mitogen tube serves as a control for the test. Performed By: #### Q NTTB #### [facility] [address] [place] [address] Dr. Benson Logan QuantiFERON Incubation Incubation performed. Normal [facility] Comment on above: Performed By: #### Q NTTB #### [facility] [address] [place] [address] Dr. Benson Logan QuantiFERON Mitogen Value >10.00 [facility] Comment on above: Performed By: #### Q NTTB #### [facility] [address] [place] [address] Dr. Benson Logan QuantiFERON Nil Value 0.00 IU/mL [facility] Comment on above: Performed By: #### Q NTTB #### [facility] [address] [place] [address] Dr. Benson Logan QuantiFERON TB1 Ag Value 0.00 IU/mL Normal [facility] Comment on above: Performed By: #### Q NTTB #### [facility] [address] [place] [address] Dr. Benson Logan QuantiFERON TB2 Ag Value 0.00 IU/mL Normal [facility] Comment on above: Performed By: #### Q NTTB #### [facility] [address] [place] [address] Dr. Benson Logan QuantiFERON-TB Gold Plus Negative Normal Negative [facility] Comment on above: Result Comment: Chem iluminescence immunoassay methodology Performed By: #### Q NTTB #### [facility] [address] [place] [address] Dr. Benson Logan CBC AUTO DIFFon 12-14-2021 BASO # 0.1 103/ul Normal 0.0-0.1 [facility] Comment on above: Performed By: #### C BC #### [facility] [address] [place] [address] Dr. Benson Logan Basophils/100 WBC (Bld) 0.9 % Normal 0.2-2.0 [facility] Comment on above: Performed By: #### C BC #### [facility] [address] [place] [address] Dr. Benson Logan EO # 0.3 103/ul Normal 0.0-0.7 [facility] Comment on above: Performed By: #### C BC #### [facility] [address] [place] [address] Dr. Benson Logan Eosinophils/100 WBC (Bld) 3.1 % Normal 0.9-7.0 [facility] Comment on above: Performed By: #### C BC #### [facility] [address] [place] [address] Dr. Benson Logan Erythrocyte distribution width (RBC) [Ratio] 17.2 % Critically high 11.0-15.0 [facility] Comment on above: Performed By: #### C BC #### [facility] [address] [place] [address] Dr. Benson Logan Hematocrit (Bld) [Volume fraction] 39.0 % Normal 36.0-48.0 [facility] Comment on above: Performed By: #### C BC #### [facility] [address] [place] [address] Dr. Benson Logan Hemoglobin (Bld) [Mass/Vol] 12.3 g/dL Normal 12.0-16.0 [facility] Comment on above: Performed By: #### C BC #### [facility] [address] [place] [address] Dr. Benson Logan IG # 0.02 10e3/ul Normal 0.00-0.03 [facility] Comment on above: Performed By: #### C BC #### [facility] [address] [place] [address] Dr. Benson Logan IG % 0.3 % Normal 0.0-0.5 [facility] Comment on above: Performed By: #### C BC #### [facility] [address] [place] [address] Dr. Benson Logan LYMPH # 2.8 103/ul Normal 1.2-3.8 [facility] Comment on above: Performed By: #### C BC #### [facility] [address] [place] [address] Dr. Benson Logan Lymphocytes/100 WBC (Bld) 34.7 % Normal 20.5-60.0 [facility] Comment on above: Performed By: #### C BC #### [facility] [address] [place] [address] Dr. Benson Logan MANUAL DIFF REQ NO Normal [facility] Comment on above: Performed By: #### C BC #### [facility] [address] [place] [address] Dr. Benson Logan MCH (RBC) [Entitic mass] 26.1 pg Critically low 26.7-34.0 [facility] Comment on above: Performed By: #### C BC #### [facility] [address] [place] [address] Dr. Benson Logan MCHC (RBC) [Mass/Vol] 31.5 g/dL Normal 29.9-35.2 [facility] Comment on above: Performed By: #### C BC #### [facility] [address] [place] [address] Dr. Benson Logan MCV (RBC) [Entitic vol] 82.6 fL Normal 81.0-99.0 [facility] Comment on above: Performed By: #### C BC #### [facility] [address] [place] [address] Dr. Benson Logan MONO # 0.7 103/ul Normal 0.3-0.8 [facility] Comment on above: Performed By: #### C BC #### [facility] [address] [place] [address] Dr. Benson Logan Monocytes/100 WBC (Bld) 8.8 % Normal 1.7-12.0 [facility] Comment on above: Performed By: #### C BC #### [facility] [address] [place] [address] Dr. Benson Logan NEUT # 4.2 103/ul Normal 1.4-6.5 [facility] Comment on above: Performed By: #### C BC #### [facility] [address] [place] [address] Dr. Benson Logan Neutrophils/100 WBC (Bld) 52.2 % Normal 43.0-75.0 [facility] Comment on above: Performed By: #### C BC #### [facility] [address] [place] [address] Dr. Benson Logan Platelet mean volume (Bld) [Entitic vol] 8.6 fL Critically low 9.5-13.5 [facility] Comment on above: Performed By: #### C BC #### [facility] [address] [place] [address] Dr. Benson Logan PLT 390 103/ul Normal 150-450 [facility] Comment on above: Performed By: #### C BC #### [facility] [address] [place] [address] Dr. Benson Logan RBC 4.72 106/ul Normal 4.20-5.40 [facility] Comment on above: Performed By: #### C BC #### [facility] [address] [address] [address] Benson Logan WBC 8.0 103/ul Normal 4.0-11.0 [facility] Comment on above: Performed By: #### C BC #### [facility] [address] [address] [address] Benson Logan LIPID PROFILEon 12-14-2021 CHOL-HDL RATIO NORM SEE BELOW Normal [facility] Comment on above: Result Comment: 3.3 - 4.4 LOW RISK 4.4 - 7.1 AVERAGE RISK 7.1 - 11.0 MODERATE RISK >11.0 HIGH RISK Performed By: #### L IPID, CMP #### [facility] [address] [address] [address] Benson Logan Cholesterol [Mass/Vol] 150 mg/dL Normal <=200 [facility] Comment on above: Performed By: #### L IPID, CMP #### [facility] [address] [place] [address] Dr. Benson Logan Cholesterol in HDL [Mass/Vol] 50 mg/dL Normal 40-60 [facility] Comment on above: Performed By: #### L IPID, CMP #### [facility] [address] [address] [address] Benson Logan Cholesterol in LDL [Mass/Vol] 76.0 mg/dL Normal [facility] Comment on above: Performed By: #### L IPID, CMP #### [facility] [address] [address] [address] Benson Logan Cholesterol.total/C holesterol in HDL [Mass ratio] 3.0 {ratio} Normal [facility] Comment on above: Performed By: #### L IPID, CMP #### [facility] [address] [place] [address] Dr. Benson Logan HDL NORMAL > or = 60 mg/dl - LO W CARDIOVASCULAR RISK <40 mg/dl - HIGH CARDIOVASCULAR RISK Normal [facility] Comment on above: Performed By: #### L IPID, CMP #### [facility] [address] [address] [address] Benson Logan LDL CALC NORMAL SEE BELOW Normal [facility] Comment on above: Result Comment: <100 mg/dl OPTIMAL 100 - 129 mg/dl NEAR OR ABOVE OPTIMAL 130 - 159 mg/dl BORDERLINE HIGH 160 - 189 mg/dl HIGH >190 mg/dl VERY HIGH Performed By: #### L IPID, CMP #### [facility] [address] [place] [address] Dr. Benson Logan Triglyceride [Mass/Vol] 120 mg/dL Normal <=150 [facility] Comment on above: Performed By: #### L IPID, CMP #### [facility] [address] [address] [address] Benson Logan VLDL CALC 24.0 mg/dL Normal [facility] Comment on above: Performed By: #### L IPID, CMP #### [facility] [address] [place] [address] Dr. Benson Logan PROF 14(COMP METB)on 022 Albumin [Mass/Vol] 3.6 g/dL Normal 3.4-5.0 [facility] Comment on above: Performed By: #### L IPID, CMP #### [facility] [address] [place] [address] Dr. Benson Logan Albumin/Globulin [Mass ratio] 1.0 {ratio} Normal [facility] Comment on above: Performed By: #### L IPID, CMP #### [facility] [address] [place] [address] Dr. Benson Logan ALP [Catalytic activity/Vol] 76 U/L Normal 46-116 [facility] Comment on above: Performed By: #### L IPID, CMP #### [facility] [address] [place] [address] Dr. Benson Logan ALT [Catalytic activity/Vol] 48 U/L Normal 14-59 [facility] Comment on above: Performed By: #### L IPID, CMP #### [facility] [address] [place] [address] Dr. Benson Logan Anion gap [Moles/Vol] 10.7 mmol/L Normal [facility] Comment on above: Performed By: #### L IPID, CMP #### [facility] [address] [place] [address] Dr. Benson Logan AST [Catalytic activity/Vol] 24 U/L Normal 15-37 [facility] Comment on above: Performed By: #### L IPID, CMP #### [facility] [address] [place] [address] Dr. Benson Logan Bilirubin [Mass/Vol] 0.4 mg/dL Normal 0.2-1.0 [facility] Comment on above: Performed By: #### L IPID, CMP #### [facility] [address] [place] [address] Dr. Benson Logan Calcium [Mass/Vol] 8.8 mg/dL Normal 8.5-10.1 [facility] Comment on above: Performed By: #### L IPID, CMP #### [facility] [address] [place] [address] Dr. Benson Logan Chloride [Moles/Vol] 105 mmol/L Normal 98-107 [facility] Comment on above: Performed By: #### L IPID, CMP #### [facility] [address] [place] [address] Dr. Benson Logan CO2 [Moles/Vol] 27.3 mmol/L Normal 21.0-32.0 [facility] Comment on above: Performed By: #### L IPID, CMP #### [facility] [address] [place] [address] Dr. Benson Logan Creatinine [Mass/Vol] 0.83 mg/dL Normal 0.55-1.02 [facility] Comment on above: Performed By: #### L IPID, CMP #### [facility] [address] [place] [address] Dr. Benson Logan EGFR-AF BANGLADESHI >60 Normal >=60 [facility] Comment on above: Performed By: #### L IPID, CMP #### [facility] [address] [place] [address] Dr. Benson Logan EGFR-NON AF BANGLADESHI >60 Normal >=60 [facility] Comment on above: Performed By: #### L IPID, CMP #### [facility] [address] [place] [address] Dr. Benson Logan Globulin (S) [Mass/Vol] 3.5 g/dL Normal [facility] Comment on above: Performed By: #### L IPID, CMP #### [facility] [address] [place] [address] Dr. Benson Logan Glucose [Mass/Vol] 94 mg/dL Normal 74-106 [facility] Comment on above: Performed By: #### L IPID, CMP #### [facility] [address] [place] [address] Dr. Benson Logan Potassium [Moles/Vol] 4.0 mmol/L Normal 3.5-5.1 [facility] Comment on above: Performed By: #### L IPID, CMP #### [facility] [address] [place] [address] Dr. Benson Logan Protein [Mass/Vol] 7.1 g/dL Normal 6.4-8.2 [facility] Comment on above: Performed By: #### L IPID, CMP #### [facility] [address] [place] [address] Dr. Benson Logan Sodium [Moles/Vol] 139 mmol/L Normal 136-145 [facility] Comment on above: Performed By: #### L IPID, CMP #### [facility] [address] [place] [address] Dr. Benson Logan Urea nitrogen [Mass/Vol] 10.0 mg/dL Normal 7.0-18.0 [facility] Comment on above: Performed By: #### L IPID, CMP #### [facility] [address] [place] [address] Dr. Benson Logan Urea nitrogen/Creatinine [Mass ratio] 12.0 mg/mg Normal [facility] Comment on above: Performed By: #### L IPID, CMP #### [facility] [address] [place] [address] Dr. Benson Logan PAP ACOG PANEL 2: 23 to 31on 10-28-2021 . . Normal [facility] Comment on above: Performed By: #### [id number] #### [facility] [address] [place] [address] Dr. Benson Logan Age Gdln ACOG Testing 23- [facility] Comment on above: Performed By: #### [id number] #### [facility] [address] [place] [address] Dr. Benson Logan DIAGNOSIS: Comment [facility] Comment on above: Result Comment: NEGA TIVE FOR INTRAEPITHELIAL LESION OR MALIGNANCY. Performed By: #### [id number] #### [facility] [address] [place] [address] Dr. Benson Logan Methodology: Comment [facility] Comment on above: Result Comment: This liquid based ThinPrep(R) pap test was screened with the use of an image guided system. Performed By: #### [id number] #### [facility] [address] [place] [address] Dr. Benson Logan Note: Comment [facility] Comment on above: Result Comment: The Pap smear is a screening test designed to aid in the detection of premalignant and malignant conditions of the uterine cervix. It is not a diagnostic procedure and should not be used as the sole means of detecting cervical cancer. Both false-positive and false-negative reports do occur. . Performed By: #### [id number] #### [facility] [address] [place] [address] Dr. Benson Logan Performed by: Comment Normal [facility] Comment on above: Result Comment: [employer] ([employer]) Performed By: #### [id number] #### [facility] [address] [place] [address] Dr. Benson Logan Reflex Criteria: Comment [facility] Comment on above: Result Comment: The HPV DNA reflex criteria were not met with this specimen result therefore, no HPV testing was performed. . Performed By: #### [id number] #### [facility] [address] [place] [address] Dr. Benson Logan Specimen adequacy: Comment Normal [facility] Comment on above: Result Comment: Sati sfactory for evaluation. Endocervical and/or squamous metaplastic cells (endocervical component) are present. Performed By: #### [id number] #### [facility] [address] [place], [place] [address] Dr. Benson Garner 08-03-2017 CNPN Telephone (HEMAMN) RENETTA HOPE ([id number]) 1990 F BMDDate Time Provider Department08/03/17 RAMONA DAVIS (RN) HEMAMN During your visit today, we recorded the following information about you:Ramona Davis, RN, RN 08/03/2017 11:25 AM SignedLeft message with instructions to call this RN back to discuss tissue typingresults.Lisette Ellison, RN, RN 08/03/2017 4:05 PM Anoop Hope was notified she is not an HLA match to potential [facility] recipient,Loki Hope. Renetta Adorno Russell gave verbal consent to disclose HLA test results toLoki Hope.Renetta M Russell was encouraged to call with any further questions or concerns andverbalized understanding.Flakito Ellison As of Date: 08/03/2017(Not on File)Date Reviewed: Never ReviewedReason for Visit: Tissue Typing/HLA [1543]Problem List As Of Date: 08/03/2017(None)[facility] Number: [id number] Status:Closed by RMAONA DAVIS on 08/03/17 Normal [facility] Vital Signs Date Time Vital Sign Value Performing Clinician Facility 11-30-2024 15:08-0400 Body mass index (BMI) [Ratio] 39.56 kg/m2 Critsopher Nascimento DO Work Phone: [facility] 11-30-2024 15:08-0400 Body weight 111.19 kg Cristopher Azam DO Work Phone: [facility] 11-30-2024 15:08-0400 Diastolic blood pressure 84 mm[Hg] Cristopher Azam DO Work Phone: [facility] 11-30-2024 15:08-0400 Systolic blood pressure 130 mm[Hg] Cristopher Azam DO Work Phone: [facility] 11-02-2024 13:05-0400 Body height 167.6 cm Gustavo Santa Clara DO Work Phone: [facility] 11-02-2024 13:05-0400 Body mass index (BMI) [Ratio] 39.87 kg/m2 Gustavo Santa Clara DO Work Phone: [facility] 11-02-2024 13:05-0400 Body temperature 97.39 [degF] Gustavo Santa Clara DO Work Phone: [facility] 11-02-2024 13:05-0400 Body weight 112.04 kg Gustavo Santa Clara DO Work Phone: [facility] 11-02-2024 13:05-0400 Diastolic blood pressure 76 mm[Hg] Gustavo Santa Clara DO Work Phone: [facility] 11-02-2024 13:05-0400 Heart rate 106 /min Gustavo Santa Clara DO Work Phone: [facility] 11-02-2024 13:05-0400 SaO2% (BldA) [Mass fraction] 97 % Gustavo Santa Clara DO Work Phone: [facility] 11-02-2024 13:05-0400 Systolic blood pressure 126 mm[Hg] Gustavo Santa Clara DO Work Phone: [facility] 11-01-2024 15:12-0400 Body height 160 cm Esther Holden MD Work Phone: [facility] 11-01-2024 15:12-0400 Body mass index (BMI) [Ratio] 44.11 kg/m2 Esther Holden MD Work Phone: [facility] 11-01-2024 15:12-0400 Body temperature 98.71 [degF] Esther Holden MD Work Phone: [facility] 11-01-2024 15:12-0400 Body weight 112.95 kg Esther Holden MD Work Phone: [facility] 11-01-2024 15:12-0400 Diastolic blood pressure 90 mm[Hg] Esther Holden MD Work Phone: [facility] 11-01-2024 15:12-0400 Heart rate 91 /min Esther Holden MD Work Phone: [facility] 11-01-2024 15:12-0400 Systolic blood pressure 129 mm[Hg] Esther Holden MD Work Phone: [facility] 10-05-2024 16:26-0400 Body height 167.6 cm Gustavo Santa Clara DO Work Phone: [facility] 10-05-2024 16:26-0400 Body mass index (BMI) [Ratio] 37.93 kg/m2 Gustavo Santa Clara DO Work Phone: [facility] 10-05-2024 16:26-0400 Body temperature 99.19 [degF] Gustavo Santa Clara DO Work Phone: [facility] 10-05-2024 16:26-0400 Body weight 106.59 kg Gustavo Santa Clara DO Work Phone: [facility] 10-05-2024 16:26-0400 Diastolic blood pressure 76 mm[Hg] Gustavo Santa Clara DO Work Phone: [facility] 10-05-2024 16:26-0400 Heart rate 94 /min Gustavo Santa Clara DO Work Phone: [facility] 10-05-2024 16:26-0400 SaO2% (BldA) [Mass fraction] 99 % Gustavo Santa Clara DO Work Phone: [facility] 10-05-2024 16:26-0400 Systolic blood pressure 128 mm[Hg] Gustavo Santa Clara DO Work Phone: [facility] 09-28-2024 16:14-0400 Body height 160.02 cm [facility] 09-28-2024 16:14-0400 Body mass index (BMI) [Ratio] 41.3 kg/m2 [facility] 09-28-2024 16:14-0400 Body weight 105.68 kg [facility] 09-28-2024 16:14-0400 Diastolic blood pressure 101 mm[Hg] [facility] 09-28-2024 16:14-0400 Heart rate 96 /min [facility] 09-28-2024 16:14-0400 SaO2% (BldA) [Mass fraction] 98 % [facility] 09-28-2024 16:14-0400 Systolic blood pressure 146 mm[Hg] [facility] 08-01-2024 14:18-0500 Body mass index (BMI) [Ratio] 41.63 kg/m2 Monika RANDHAWA Work Phone: [facility] 08-01-2024 14:18-0500 Body weight 106.59 kg Monika RANDHAWA Work Phone: [facility] 08-01-2024 14:18-0500 Diastolic blood pressure 100 mm[Hg] Monika RANDHAWA Work Phone: [facility] 08-01-2024 14:18-0500 Systolic blood pressure 140 mm[Hg] Monika RANDHAWA Work Phone: [facility] 08-01-2024 11:48-0500 Body height 160 cm Gustavo Santa Clara DO Work Phone: [facility] 08-01-2024 11:48-0500 Body mass index (BMI) [Ratio] 39.86 kg/m2 Gustavo Santa Clara DO Work Phone: [facility] 08-01-2024 11:48-0500 Body temperature 98.6 [degF] Gustavo Santa Clara DO Work Phone: [facility] 08-01-2024 11:48-0500 Body weight 102.06 kg Gustavo Santa Clara DO Work Phone: [facility] 08-01-2024 11:48-0500 Diastolic blood pressure 82 mm[Hg] Gustavo Santa Clara DO Work Phone: [facility] 08-01-2024 11:48-0500 Heart rate 100 /min Gustavo Santa Clara DO Work Phone: [facility] 08-01-2024 11:48-0500 SaO2% (BldA) [Mass fraction] 98 % Gustavo Santa Clara DO Work Phone: [facility] 08-01-2024 11:48-0500 Systolic blood pressure 130 mm[Hg] Gustavo Santa Clara DO Work Phone: [facility] 06-24-2024 11:23-0500 Body height 160 cm Gustavo Santa Clara DO Work Phone: [facility] 06-24-2024 11:23-0500 Body mass index (BMI) [Ratio] 40.21 kg/m2 Gustavo Santa Clara DO Work Phone: [facility] 06-24-2024 11:23-0500 Body temperature 97.3 [degF] Gustavo Santa Clara DO Work Phone: [facility] 06-24-2024 11:23-0500 Body weight 102.97 kg Gustavo Santa Clara DO Work Phone: [facility] 06-24-2024 11:23-0500 Diastolic blood pressure 88 mm[Hg] Gustavo Santa Clara DO Work Phone: [facility] 06-24-2024 11:23-0500 Heart rate 109 /min Gustavo Santa Clara DO Work Phone: [facility] 06-24-2024 11:23-0500 SaO2% (BldA) [Mass fraction] 99 % Gustavo Santa Clara DO Work Phone: [facility] 06-24-2024 11:23-0500 Systolic blood pressure 136 mm[Hg] Gustavo Santa Clara DO Work Phone: [facility] 05-25-2024 16:11-0500 Body height 160 cm Gustavo Santa Clara DO Work Phone: [facility] 05-25-2024 16:11-0500 Body mass index (BMI) [Ratio] 41.24 kg/m2 Gustavo Santa Clara DO Work Phone: [facility] 05-25-2024 16:11-0500 Body temperature 97.59 [degF] Gustavo Santa Clara DO Work Phone: [facility] 05-25-2024 16:11-0500 Body weight 105.6 kg Gustavo Santa Clara DO Work Phone: [facility] 05-25-2024 16:11-0500 Diastolic blood pressure 74 mm[Hg] Gustavo Santa Clara DO Work Phone: [facility] 05-25-2024 16:11-0500 Heart rate 104 /min Gustavo Santa Clara DO Work Phone: [facility] 05-25-2024 16:11-0500 SaO2% (BldA) [Mass fraction] 99 % Gustavo Santa Clara DO Work Phone: [facility] 05-25-2024 16:11-0500 Systolic blood pressure 138 mm[Hg] Gustavo Santa Clara DO Work Phone: [facility] 04-28-2024 10:07-0500 Body height 160 cm Gustavo Santa Clara DO Work Phone: [facility] 04-28-2024 10:07-0500 Body mass index (BMI) [Ratio] 42.12 kg/m2 Gustavo Santa Clara DO Work Phone: [facility] 04-28-2024 10:07-0500 Body temperature 97.5 [degF] Gustavo Santa Clara DO Work Phone: [facility] 04-28-2024 10:07-0500 Body weight 107.86 kg Gustavo Santa Clara DO Work Phone: [facility] 04-28-2024 10:07-0500 Diastolic blood pressure 86 mm[Hg] Gustavo Santa Clara DO Work Phone: [facility] 04-28-2024 10:07-0500 Heart rate 100 /min Gustavo Santa Clara DO Work Phone: [facility] 04-28-2024 10:07-0500 SaO2% (BldA) [Mass fraction] 97 % Gustavo Santa Clara DO Work Phone: [facility] 04-28-2024 10:07-0500 Systolic blood pressure 132 mm[Hg] Gustavo Santa Clara DO Work Phone: [facility] 04-19-2024 09:04-0500 Body height 160 cm Gustavo Santa Clara DO Work Phone: [facility] 04-19-2024 09:04-0500 Body mass index (BMI) [Ratio] 41.88 kg/m2 Gustavo Santa Clara DO Work Phone: [facility] 04-19-2024 09:04-0500 Body temperature 97.2 [degF] Gustavo Santa Clara DO Work Phone: [facility] 04-19-2024 09:04-0500 Body weight 107.23 kg Gustavo Santa Clara DO Work Phone: [facility] 04-19-2024 09:04-0500 Diastolic blood pressure 86 mm[Hg] Gustavo Santa Clara DO Work Phone: [facility] 04-19-2024 09:04-0500 Heart rate 94 /min Gustavo Santa Clara DO Work Phone: [facility] 04-19-2024 09:04-0500 SaO2% (BldA) [Mass fraction] 99 % Gustavo Santa Clara DO Work Phone: [facility] 04-19-2024 09:04-0500 Systolic blood pressure 122 mm[Hg] Gustavo Santa Clara DO Work Phone: [facility] 01-28-2024 16:20-0400 Body height 160 cm Gustavo Santa Clara DO Work Phone: [facility] 01-28-2024 16:20-0400 Body mass index (BMI) [Ratio] 40.64 kg/m2 Gustavo Santa Clara DO Work Phone: [facility] 01-28-2024 16:20-0400 Body temperature 97.5 [degF] Gustavo Santa Clara DO Work Phone: [facility] 01-28-2024 16:20-0400 Body weight 104.06 kg Gustavo Santa Clara DO Work Phone: [facility] 01-28-2024 16:20-0400 Diastolic blood pressure 80 mm[Hg] Gustavo Santa Clara DO Work Phone: [facility] 01-28-2024 16:20-0400 Heart rate 92 /min Gsutavo Santa Clara DO Work Phone: [facility] 01-28-2024 16:20-0400 SaO2% (BldA) [Mass fraction] 98 % Gustavo Santa Clara DO Work Phone: [facility] 01-28-2024 16:20-0400 Systolic blood pressure 122 mm[Hg] Gustavo Santa Clara DO Work Phone: [facility] Healthcare Encounters Encounter Date Encounter Type Care Provider Facility Start: 11-30-2024 End: 11-30-2024 Patient encounter procedure Cristopher Azam DO Work Phone: [facility] Healthcare Work Phone: Start: 11-30-2024 End: 11-30-2024 Periodic preventive med est patient 18-39 yrs Cristopher Azam DO Work Phone: [facility] OB Comment on above: Well woman exam with routine gynecological exam Start: 11-30-2024 End: 11-30-2024 Bamboo flowsheet Cristopher Azam DO Work Phone: [facility] OB Start: 11-30-2024 End: 11-30-2024 Bamboo flowsheet Cristopher Azam DO Work Phone: [facility] OB Start: 11-23-2024 End: 11-23-2024 Telephone encounter Esther Holden [facility] Comment on above: Patient Update; Kasey ent Question Start: 11-02-2024 End: 11-02-2024 Bamboo flowsheet Gustavo Martino Santa Clara DO Work Phone: [facility] [address] Start: 11-02-2024 End: 11-02-2024 Bamboo flowsheet Gustavo L Santa Clara DO Work Phone: [facility] Start: 11-02-2024 End: 11-02-2024 ambulatory GUSTAVO L CUTLER Not Available Start: 11-02-2024 End: 11-02-2024 Office outpatient visit 25 minutes Gustavo L Santa Clara DO Work Phone: [facility] Comment on above: Class 2 obesity due to excess calories without serious comorbidity with body mass index (BMI) of 39.0 to 39.9 in adult (Primary Dx); Acne, unspecified acne type; Chronic migraine without aura without status migrainosus, not intractable ([facility]) Start: 11-01-2024 End: 11-01-2024 Patient encounter procedure Esther Holden MD Work Phone: [facility] Comment on above: Gastroesophageal ref lux disease, unspecified whether esophagitis present (Primary Dx) Start: 10-05-2024 End: 10-05-2024 Office outpatient visit 15 minutes Gustavo L Santa Clara DO Work Phone: [facility] Comment on above: Omphalitis in adult (Primary Dx) Start: 10-05-2024 End: 10-05-2024 ambulatory GUSTAVO L CUTLER Not Available Start: 10-05-2024 End: 10-05-2024 Bamboo flowsheet Gustavo L Santa Clara DO Work Phone: [facility] Start: 10-05-2024 End: 10-05-2024 Bamboo flowsheet Gustavo L Santa Clara DO Work Phone: [facility] Start: 09-28-2024 End: 09-28-2024 ambulatory [facility] Work Phone: Start: 09-28-2024 End: 09-28-2024 Patient encounter procedure [facility] Physician [facility] Work Phone: Start: 09-21-2024 End: 09-21-2024 Bamboo flowsheet Gustavo L Santa Clara DO Work Phone: [facility] Start: 09-21-2024 End: 09-21-2024 Bamboo flowsheet Gustavo L Santa Clara DO Work Phone: [facility] Start: 09-21-2024 End: 09-21-2024 Telephone encounter Gustavo L Santa Clara DO Work Phone: [facility] Start: 09-21-2024 End: 09-21-2024 ambulatory GUSTAVO L CUTLER Not Available Start: 08-24-2024 End: 08-24-2024 ambulatory MONIKA MESSER Not Available Start: 08-01-2024 End: 08-01-2024 Bamboo flowsheet Gustavo L Santa Clara DO Work Phone: [facility] Start: 08-01-2024 End: 08-01-2024 Bamboo flowsheet Gustavo L Santa Clara DO Work Phone: [facility] Start: 08-01-2024 End: 08-01-2024 Office outpatient visit 15 minutes Monika Messer PA Work Phone: [facility] Comment on above: IUD check up Start: 08-01-2024 End: 08-01-2024 ambulatory MONIKA MESSER Not Available Start: 08-01-2024 End: 08-01-2024 ambulatory GUSTAVO L CUTLER Not Available Start: 08-01-2024 End: 08-01-2024 Office outpatient visit 25 minutes Gustavo L Santa Clara DO Work Phone: [facility] Comment on above: Migraine without aur a and without status migrainosus, not intractable (CMS/HCC) (Primary Dx); Class 3 severe obesity due to excess calories without serious comorbidity with body mass index (BMI) of 40.0 to 44.9 in adult (CMS/HCC) Start: 06-24-2024 End: 06-24-2024 Bamboo flowsheet Gustavo L Santa Clara DO Work Phone: [facility] Start: 06-24-2024 End: 06-24-2024 Bamboo flowsheet Gustavo L Santa Clara DO Work Phone: [facility] Start: 06-24-2024 End: 06-24-2024 ambulatory GUSTAVO L CUTLER Not Available Start: 06-24-2024 End: 06-24-2024 Office outpatient visit 15 minutes Gustavo L Santa Clara DO [facility] Comment on above: Class 3 severe obesi ty due to excess calories without serious comorbidity with body mass index (BMI) of 40.0 to 44.9 in adult ([facility] Start: 05-30-2024 End: 05-30-2024 Refill Gustavo L Santa Clara DO [facility] Comment on above: Gastroesophageal ref lux disease without esophagitis Attention deficit hy peractivity disorder (ADHD), predominantly inattentive type ([facility] Start: 05-25-2024 End: 05-25-2024 Office outpatient visit 15 minutes Gustavo L Santa Clara DO [facility] Comment on above: Acne, unspecified ac ne type (Primary Dx); Class 3 severe obesity due to excess calories without serious comorbidity with body mass index (BMI) of 40.0 to 44.9 in adult ([facility] Start: 05-25-2024 End: 05-25-2024 ambulatory GUSTAVO L CUTLER Not Available Start: 05-25-2024 End: 05-25-2024 Bamboo flowsheet Gustavo L Santa Clara DO [facility] Start: 05-25-2024 End: 05-25-2024 Bamboo flowsheet Gustavo L Santa Clara DO [facility] Start: 04-28-2024 End: 04-28-2024 Bamboo flowsheet Gustavo L Santa Clara DO [facility] Start: 04-28-2024 End: 04-28-2024 Bamboo flowsheet Gustavo L Santa Clara DO [facility] Start: 04-28-2024 End: 04-28-2024 ambulatory GUSTAVO L CUTLER Not Available Start: 04-28-2024 End: 04-28-2024 Office outpatient visit 25 minutes Gustavo L Santa Clara DO Work Phone: [facility] FM 230 Comment on above: Herpes zoster withou t complication (Primary Dx); Class 3 severe obesity due to excess calories without serious comorbidity with body mass index (BMI) of 40.0 to 44.9 in adult ([facility]); Prediabetes Start: 04-21-2024 End: 04-21-2024 Telephone encounter Gustavo L Santa Clara DO Work Phone: [facility] FM 230 Start: 04-19-2024 End: 04-19-2024 Bamboo flowsheet Gustavo L Santa Clara DO Work Phone: [facility] 230 Start: 04-19-2024 End: 04-19-2024 Bamboo flowsheet Gustavo L Santa Clara DO Work Phone: [facility] 230 Start: 04-19-2024 End: 04-19-2024 Patient encounter status Gustavo L Santa Clara DO Work Phone: [facility] Start: 04-19-2024 End: 04-19-2024 Periodic preventive med est patient 18-39 yrs Gustavo L Santa Clara DO Work Phone: [facility] FM 230 Comment on above: Wellness examination (Primary Dx); Vertigo; Insulin resistance; Abnormal weight gain Start: 04-19-2024 End: 04-19-2024 ambulatory GUSTAVO L CUTLER Not Available Start: 01-28-2024 End: 01-28-2024 Office outpatient visit 25 minutes Gustavo L Santa Clara DO Work Phone: [facility] FM 230 Comment on above: Vertigo (Primary Dx) ; Chronic migraine without aura without status migrainosus, not intractable ([facility]); Fibromyalgia Start: 01-28-2024 End: 01-28-2024 ambulatory GUSTAVO L CUTLER Not Available Start: 01-28-2024 End: 01-28-2024 Bamboo flowsheet Gustavo L Santa Clara DO Work Phone: [facility] Start: 01-28-2024 End: 01-28-2024 Bamboo flowsheet Gustavo L Santa Clara DO Work Phone: [facility] Start: 10-01-[address] NADER BRYAN . Facili ty:[facility] Start: 09-26-2022 End: 09-26-2022 ambulatory Nany Parikh [facility] Work Phone: Start: 09-26-2022 End: 09-26-2022 Departed [employer] Nany Parikh Work Phone: [facility] Work Phone: Start: 01-09-2022 End: 01-10-2022 ambulatory CHRISTINE GRAVES Facility:[facility] Start: 12-14-2021 End: 12-15-[address] MCCALL LISTED REQUEST Facility:[facility] Start: 10-22-2021 End: 10-22-[address] CRISTOPHER NASCIMENTO . Facility: Start: 07-23-2017 Ambulatory SANTO SANCHES [facility] Start: 01-28-2017 End: 01-29-2017 Ambulatory Catherine Fontanez Facility:[id number] Procedures Date Procedure Procedure Detail Performing Clinician Start: 04-22-2024 Complete blood count with white cell differential, automated Gustavo Martino Santa Clara DO Work Phone: Start: 04-22-2024 Comprehensive metabo lic panel Gustavo Martino Santa Clara DO Work Phone: Start: 04-22-2024 Lipid panel Gustavo Martino Santa Clara DO Work Phone: Start: 10-26-2023 Microscopic observat ion [Identifier] in Cervix by Cyto stain Gustavo Bernardo DO Work Phone: Start: 10-26-2023 Cytp cerv/vag auto t hin layer prep mnl screen Cristopher Nascimento DO Work Phone: Start: 10-29-2022 Microscopic observat ion [Identifier] in Cervix by Cyto stain Gustavo Santa Clara DO Work Phone: Plan of Treatment Date Care Activity Detail Author Start: 10-30-2027 Screening for malignant neoplasm of cervix [facility] Start: 10-25-2026 Screening for malignant neoplasm of cervix Pap Smear [facility] Start: 02-06-2025 Influenza vaccination Influenza Vaccine (Season Ended) [facility] Start: 11-30-2024 End: 11-30-2024 Patient encounter procedure [facility] Comment on above: Arrived Start: 11-30-2024 End: 11-30-2024 Patient encounter procedure 11/30/2024 8:40 AM EDT Appointment [facility] [place] [address] [place] [address] Esther Holden MD [address] [place] [address] [facility] Start: 11-02-2024 End: 11-02-2024 Patient encounter procedure [facility] Start: 10-05-2024 End: 10-05-2024 Patient encounter procedure 10/05/2024 4:20 PM EDT Office Visit [facility] [address] [place] [id number] Gustavo Bernardo DO [address] [place] [address] Arrived [facility] Comment on above: Arrived Start: 08-24-2024 End: 08-24-2024 Professional / ancillary services management 08/24/2024 1:00 PM EDT Ancillary Procedure [facility] [address] [place] [address] [facility] Start: 08-01-2024 End: 08-01-2025 US Pelvis transvaginal US pelvis transvaginal Imaging Routine IUD check up Expected: 08/01/2024, Expires: 08/01/2025 [facility] Work Phone: Comment on above: Expected: 08/01/2024, Expires: Start: 08-01-2024 End: 08-01-2024 Patient encounter procedure 08/01/2024 1:50 PM EST Office Visit [facility] [address] [place] [address] Monika Messer PA [address] [place] [address] [facility] Start: 08-01-2024 End: 08-01-2024 Patient encounter procedure 08/01/2024 11:40 AM EST Office Visit [facility] [address] [place] [phone] Santa Clara, Gustavo L, DO [address] [place] [address] [facility] Start: 06-24-2024 End: 06-24-2024 Patient encounter procedure 06/24/2024 11:20 AM EST Office Visit [facility] [address] [place] [phone] Santa Clara, Gustavo L, DO [address] [place] [address] [facility] Start: 05-25-2024 End: 05-25-2024 [facility] Comment on above: Arrived Start: 04-28-2024 End: 04-28-2024 Patient encounter procedure 04/28/2024 9:40 AM EST Office Visit [facility] [address] [place] [phone] Santa Clara, Gustavo L, DO [address] [place] [address] [facility] 230 Start: 02-07-2024 Covid-19 Vaccine ( season) Covid-19 Vaccine ( season) [facility] Start: 02-07-2024 Influenza vaccination Influenza Vaccine (#1) [facility] Start: 01-28-2024 End: 01-28-2024 Patient encounter procedure 01/28/2024 4:20 PM EDT Office Visit [facility] [address] [place] [phone] Santa Clara, Gustavo L, DO [address] [place] [address] Arrived [facility] 230 Comment on above: Arrived Start: 09-26-2022 Superficial Wound Culture Superficial Wound Culture [facility] Start: 2013 Screening for malignant neoplasm of cervix Cervical Cancer Screening [facility] Start: 2010 Anxiety Screening Anxiety Screening [facility] Start: 2010 Depression Screening Depression Screening [facility] Start: 2010 Hepatitis C screening Hepatitis C Screening [facility] Start: 2010 HIV screening HIV Screening [facility] Start: 10-07-2003 Urine microalbumin profile DTaP,Tdap,Td Vaccine (6 - Tdap) [facility] Bacteria identified in Unspecified specimen by Aerobe culture [facility] Cytology Cervical or vaginal smear or scraping study Pap Smear Pathology and Cytology Routine Well woman exam with routine gynecological exam Ordered: 11/30/2024 [facility] Work Phone: Comment on above: Ordered: 11/30/2024 End: 11-01-2025 EGD DIAGNOSTIC EGD DIAGNOSTIC Endoscopy Routine Gastroesophageal reflux disease, unspecified whether esophagitis present 1 Occurrences starting 11/01/2024 until 11/01/2025 [facility] Work Phone: Comment on above: 1 Occurrences starting 11/01/2024 until 11/01/2025 Human papilloma viru s DNA [Presence] in Unspecified specimen by Probe with amplification HPV DNA probe, amplified Microbiology Routine Well woman exam with routine gynecological exam Ordered: 11/30/2024 [facility] Comment on above: Ordered: 11/30/2024 [facility] Immunizations Immunization Date Immunization Notes Care Provider Fa cility 04-03-2008 HPV, unspecified formulation Gustavo Santa Clara DO Work Phone: [facility] 10-27-2007 HPV, unspecified formulation Gustavo Santa Clara DO Work Phone: [facility] 08-30-2007 HPV, unspecified formulation Gustavo Santa Clara DO Work Phone: [facility] 04-12-1998 diphtheria, tetanus toxoids and acellular pertussis vaccine, unspecified formulation Gustavo Santa Clara DO Work Phone: [facility] 04-12-1998 measles, mumps and rubella virus vaccine Gustavo Santa Clara DO Work Phone: [phone] [address] 04-12-1998 trivalent poliovirus vaccine, live, oral Gustavo Santa Clara DO Work Phone: [phone] [place] [address] 03-31-1994 diphtheria, tetanus toxoids and acellular pertussis vaccine, unspecified formulation Gustavo Santa Clara DO Work Phone: [phone] [address] 03-31-1994 haemophilus influenz ae type b vaccine, conjugate unspecified formulation Gustavo Santa Clara DO Work Phone: [phone] [address] 03-31-1994 hepatitis B vaccine, pediatric or pediatric/adolescent dosage Gustavo Santa Clara DO Work Phone: [phone] [place] [address] 03-31-1994 measles, mumps and rubella virus vaccine Gustavo Santa Clara DO Work Phone: [phone] [place] [address] 03-31-1994 trivalent poliovirus vaccine, live, oral Gustavo Santa Clara DO Work Phone: [phone] [address] 04-29-1993 diphtheria, tetanus toxoids and pertussis vaccine Gustavo Santa Clara DO Work Phone: [phone] [place] [address] 04-29-1993 haemophilus influenz ae type b vaccine, conjugate unspecified formulation Gustavo Santa Clara DO Work Phone: [phone] [address] 02-27-1993 diphtheria, tetanus toxoids and pertussis vaccine Gustavo Santa Clara DO Work Phone: [phone] [place] [address] 02-27-1993 haemophilus influenz ae type b vaccine, conjugate unspecified formulation Gustavo Santa Clara DO Work Phone: [phone] [place] [address] 02-27-1993 hepatitis B vaccine, pediatric or pediatric/adolescent dosage Gustavo Santa Clara DO Work Phone: [phone] [place] [address] 02-27-1993 trivalent poliovirus vaccine, live, oral Gustavo Santa Clara DO Work Phone: [phone] [address] 1992 diphtheria, tetanus toxoids and pertussis vaccine Gustavo Santa Clara DO Work Phone: [phone] [address] 1992 haemophilus influenz ae type b vaccine, conjugate unspecified formulation Gustavo Santa Clara DO Work Phone: [facility] 1992 hepatitis B vaccine, pediatric or pediatric/adolescent dosage Gustavo Bernardo DO Work Phone: [facility] 1992 trivalent poliovirus vaccine, live, oral Gustavo Bernardo DO Work Phone: [facility] Healthcare Payers Date Payer Category Payer Private Health Insurance [id number] 2022 Private Health Insurance [id number] 2013 Private Health Insurance [id number] 1992 Unknown [id number] 2.16.84 [id number] 1992 Unknown [id number] 2.16.84 [id number] 1992 Unknown [id number] 2.16.84 [id number] 1992 Unknown [id number] 2.16.84 [id number] 1992 Unknown [id number] 2.16.84 0.1.199996.3.579.2.9 1992 Unknown [id number] 2.16.84 0.1.075290.3.579.2.9 1992 Unknown [id number] 2.16.84 0.1.894512.3.579.2.9 1992 Unknown [id number] 2.16.84 0.1.254684.3.579.2.1258 1992 Unknown [id number] 2.16.84 0.1.330183.3.579.2.9 1992 Unknown [id number] 2.16.84 0.1.838656.3.579.2.9 1992 Unknown [id number] 2.16.84 [id number] 1992 Unknown [id number] 2.16.84 0.1.005536.3.579.2.9 1992 Unknown [id number] 2.16.84 0.1.272362.3.579.2.9 1992 Unknown [id number] 2.16.84 [id number] 1992 Unknown [id number] 2.16.84 [id number] 1959 Self-pay 1959 Unknown [id number] Unknown [id number] 2.16.8 [id number] Social History Date Type Detail Facility Tobacco smoking stat [facility] Unknown if ever smoked [facility] Work Phone: Start: 1990 Sex Assigned At Female [facility] Start: 08-10-2023 End: 10-05-2024 Tobacco smoking status AKIS Ex-smoker [facility] Start: 08-23-2006 End: 08-23-2021 History of tobacco use Current smoker [facility] Start: 08-23-2006 End: 08-23-2021 History of tobacco use Cigarette Smoker [facility] Start: 08-10-2023 End: 09-20-2024 Cigarettes smoked current (pack per day) - Reported 1 [facility] Start: 08-10-2023 End: 10-05-2024 Tobacco use and exposure Smokeless tobacco non-user [facility] Start: 04-19-2024 End: 11-30-2024 Alcoholic beverage intake Current drinker of alcohol (finding) [facility] Start: 08-09-2023 End: 09-20-2024 Social connection and isolation panel [facility] Do you belong to any clubs or organizations such as religion groups, unions, fraternal or athletic groups, or school groups? Yes [facility] Are you now , , , , never or living with a partner? Never [facility] How often to you hav e a drink containing alcohol? Monthly or less [facility] How many standard dr inks containing alcohol do you have on a typical day? 1 or 2 [facility] How often do you hav e 6 or more drinks on 1 occasion? Never [facility] How hard is it for y ou to pay for the very basics like food, housing, medical care, and heating Not very hard [facility] Do you feel stress - tense, restless, nervous, or anxious, or unable to sleep at night because your mind is troubled all the time - these days [OSQ] Rather much [facility] (I/We) worried wheedilberto er (my/our) food would run out before (I/we) got money to buy more. Never true [facility] In the past 12 month s, has lack of transportation kept you from medical appointments or from getting medications? No [facility] In the past 12 month s, was there a time when you were not able to pay the mortgage or rent on time? No [facility] Start: 08-10-2023 Tobacco Comment Nicotine Vape [facility] Start: 12-24-2022 Alcohol Comment occasional alcohol use [facility] Start: 1990 Sex assigned at Not on file [facility] How hard is it for y ou to pay for the very basics like food, housing, medical care, and heating Somewhat hard [facility] Tobacco smoking stat us AKIS Unknown if ever smoked [facility] Start: 09-28-2024 Sex Female (finding) [facility] Functional Status Date Assessment Result Facility 11-02-2024 Patient Health [facility] ionnaire 2 item (PHQ-2) [Reported] [facility] 10-05-2024 Patient Health [facility] ionnaire 2 item (PHQ-2) [Reported] [facility] 09-21-2024 Patient Health [facility] ionnaire 2 item (PHQ-2) [Reported] [facility] Clinical Notes 01-28-2024 to 11-30-2024 SYDNEE Roth - 11/30/2024 2:40 PM EDTTelephone Encounter - Monie Draper MA - 11/23/2024 3:25 PM EDTTelephone Encounter - Monie Draper MA - 11/23/2024 3:25 PM EDT Note Date & Type Note Facility 11-30-2024 History of Presen t illness Narrative Reason for Appointment: Patient ID: Renetta Hope is a 34 y.o. female who presents for Well Women Visit Patient presents today for Annual Exam. MEDICATIONS Current Outpatient Medications Medication Instructions amitriptyline (ELAVIL) 50 mg, Oral, Nightly atomoxetine (STRATTERA) 25 mg, Oral, Daily buPROPion (WELLBUTRIN) 150 mg, Oral, 2 times daily meclizine (ANTIVERT) 25 mg, Oral, 3 times daily PRN nabumetone (Relafen) 750 MG tablet naltrexone (DEPADE) 50 mg, Oral, Daily naratriptan (AMERGE) 2.5 mg, Oral, Once as needed Nurtec 75 mg, Oral, Every 48 hours pantoprazole (PROTONIX) 40 mg, Oral, 2 times daily, Do not crush, chew, or split. spironolactone (ALDACTONE) 50 mg, Oral, 2 times daily Taltz 80 MG/ML injection triamcinolone (Kenalog) 0.1 % cream 1 application , 2 times daily valACYclovir (VALTREX) 2,000 mg, Oral, 2 times daily ALLERGIES No Known Allergies PROBLEMS Active Ambulatory Problems Diagnosis Date Noted Snoring 10/30/2022 Obesity (BMI 30-39.9) 11/12/2022 Attention deficit hyperactivity disorder 08/10/2023 Prediabetes 08/10/2023 Chronic migraine without aura without status migrainosus, not intractable 08/10/2023 Gastroesophageal reflux disease without esophagitis 08/10/2023 Resolved Ambulatory Problems Diagnosis Date Noted Obesity 10/30/2022 Past Medical History: Diagnosis Date Abnormal uterine bleeding ADHD (attention deficit hyperactivity disorder) Anemia Anxiety Arthritis control counseling Breakthrough bleeding on depo provera Dental disease Dizziness Eczema Fatigue Headache History of ovarian cyst 2010 Menorrhagia Obesity with body mass index of 30.0-39.9 ([facility]) Psoriasis Sleep difficulties Well woman exam HISTORY PAST MEDICAL HISTORY SOCIAL HISTORY Past Medical History: Diagnosis Date Abnormal uterine bleeding ADHD (attention deficit hyperactivity disorder) Anemia Anxiety Arthritis control counseling Breakthrough bleeding on depo provera Dental disease Dizziness Eczema Fatigue Headache History of ovarian cyst 2010 Menorrhagia Obesity 10/30/2022 Obesity with body mass index of 30.0-39.9 ([facility]) Psoriasis Sleep difficulties Well woman exam Social History Tobacco Use Smoking status: Former Current packs/day: 0.00 Average packs/day: 1 pack/day for 15.0 years (15.0 ttl pk-yrs) Types: Cigarettes Start date: 08/23/2006 Quit date: 08/23/2021 Years since quittin.2 Smokeless tobacco: Never Tobacco comments: Nicotine Vape Vaping Use Vaping status: Every Day Substances: Nicotine Substance Use Topics Alcohol use: Yes Comment: occasional alcohol use Drug use: Never FAMILY HISTORY Family History Problem Relation Name Age of Onset Hypertension Mother Fariha Mental illness Mother Fariha Migraines Mother Fariha Other (necrosis in hip) Mother Fariha Depression Mother Fariha Diabetes Father Brandon Hypertension Father Brandon Mental illness Brother Loki 2 brothers Cancer Brother Loki Mental illness Maternal Grandmother No Known Problems Daughter Sabina Miscarriages / Stillbirths Father's Sister Liudmila SURGICAL HISTORY Past Surgical History: Procedure Laterality Date CHOLECYSTECTOMY DILATION AND CURETTAGE REVIEW OF SYSTEMS Review of Systems: Review of Systems Constitutional: Negative. HENT: Negative. Eyes: Negative. Respiratory: Negative. Cardiovascular: Negative. Gastrointestinal: Negative. Genitourinary: Negative. Musculoskeletal: Negative. Skin: Negative. Neurological: Negative. All other systems reviewed and are negative. Hematological: Negative. Endocrine: Negative. Allergic/Immunologic: Negative. OBJECTIVE Objective: Physical Exam Constitutional: Appearance: Normal appearance. Genitourinary: Right Adnexa: not tender and no mass present. Left Adnexa: not tender and no mass present. No cervical discharge. Breasts: Breasts are soft. Right: Normal. Left: Normal. HENT: Head: Normocephalic. Nose: Nose normal. Mouth/Throat: Mouth: Mucous membranes are moist. Cardiovascular: Rate and Rhythm: Normal rate. Pulmonary: Effort: Pulmonary effort is normal. Abdominal: General: Bowel sounds are normal. Palpations: Abdomen is soft. Musculoskeletal: General: Normal range of motion. Cervical back: Normal range of motion. Neurological: General: No focal deficit present. Mental Status: She is alert. Skin: General: Skin is warm and dry. Psychiatric: Mood and Affect: Mood normal. Vitals and nursing note reviewed. Exam conducted with a well logging captain mud analysis present. Vitals: Estimated body mass index is 39.56 kg/m as calculated from the following: Height as of 11/02/24: 5' 6 . Weight as of this encounter: 245 lb 1.9 oz. BP: 130/84 No LMP recorded. (Menstrual status: IUD). ASSESSMENT & PLAN ICD-10-CM 1. Well woman exam with routine gynecological exam Z01.419 Pap Smear HPV DNA probe, amplified Annual Exam: Patient presents today for an annual exam. Patient states she is doing well and has no complaints. Pap was obtained without difficulty. Orders Placed This Encounter Procedures HPV DNA probe, amplified Patient had an egd today with biopsy for recurrent reflux Follow Up: Patient is to return in one year for annual unless needed otherwise. Documented by SYDNEE Roth on behalf of: Cristopher Nascimento DO documented in this encounter [facility] 11-23-2024 Telephone encounter Note Spoke with patient and discussed medication prior to having her EGD. Monie Draper MA [facility] 11-23-2024 Miscellaneous Notes Spoke with patient and discussed medication prior to having her EGD. Monie Draper MA Started new medications and would like to discuss if she needs to not take any prior to her egd procedure documented in this encounter [facility] 11-23-2024 Telephone encounter Note Started new medications and would like to discuss if she needs to not take any prior to her egd procedure [facility] 11-02-2024 History of Presen t illness Narrative Images from the original note were not included. [facility] ZAHEER Carmen SUBJECTIVE: HPI: Renetta Hope is a 34 y.o. female who presents with chief complaint of Follow-up Pt states she is here for a follow up. I have reviewed and reconciled the history and medication list with the patient today. History of Present Illness The patient presents for a follow-up on Adipex, headaches, and sleep issues. She has discontinued the use of Adipex due to its ineffectiveness in managing her weight. She continues to experience weight gain despite this intervention. She has been experiencing an increase in headache frequency, which she attributes to recent weather changes. She reports that naratriptan is effective in managing her headaches when taken early. However, there have been instances where she wakes up with a severe headache. She also mentions that Nurtec was previously effective in managing her symptoms. Her current headache frequency is approximately once every 3 weeks. She has been referred to a new sleep specialist, Dr. Eduardo Rodriguez, but has not yet scheduled an appointment. She has been diagnosed with narcolepsy and cataplexy by a sleep specialist at [facility]. MEDICATIONS - Discontinued: Adipex - Current: Naratriptan - Past: Nurtec Depression: Not at risk (11/02/2024) PHQ-2 PHQ-2 Score: 0 reports that she quit smoking about 3 years ago. Her smoking use included cigarettes. She started smoking about 18 years ago. She has a 15 pack-year smoking history. She has never used smokeless tobacco. She reports current alcohol use. She reports that she does not use drugs. OBJECTIVE: 05/25/2024 4:11 PM 06/24/2024 11:23 AM 08/01/2024 11:48 AM 08/01/2024 2:18 PM 09/21/2024 11:40 AM 10/05/2024 4:26 PM 11/02/2024 1:05 PM Vitals BMI 41.24 kg/m2 40.21 kg/m2 39.86 kg/m2 41.63 kg/m2 39.06 kg/m2 37.93 kg/m2 39.87 kg/m2 BSA (m2) 2.17 m2 2.14 m2 2.13 m2 2.18 m2 2.26 m2 2.23 m2 2.28 m2 Systolic 138 136 130 140 134 128 126 Diastolic 74 88 82 100 82 76 76 Heart Rate 104 109 100 108 94 106 SpO2 99 % 99 % 98 % 98 % 99 % 97 % Temp 97.6 F 97.3 F 98.6 F 97.2 F 99.2 F 97.4 F Height (in) 5' 3 5' 3 5' 3 5' 6 5' 6 5' 6 Weight (lb) 232.8 227 225 235 242 235 247 Visit Report Report Report Report Report Report Report Report Report Report Physical Exam Physical Exam General Appearance: Alert, no distress. Vital signs: HEENT: Normocephalic, atraumatic, EAC/TM nonerythematous, tragus nontender. Respiratory: No respiratory distress, normal work of breathing. CTA bilat without wheezes or ronchi. Cardiovascular: RRR, no murmurs. Gastrointestinal: nontender. Skin: Warm and dry, no rash. Neurological: Normal. Psychiatric: normal affect, normal thought content. Results No results found for this or any previous visit (from the past 4 weeks). ASSESSMENT AND PLAN: Assessment/Plan Diagnoses and all orders for this visit: Class 2 obesity due to excess calories without serious comorbidity with body mass index (BMI) of 39.0 to 39.9 in adult - buPROPion (Wellbutrin) 75 MG tablet; Take 2 tablets (150 mg) by mouth in the morning and 2 tablets (150 mg) before bedtime. - naltrexone (Depade) 50 MG tablet; Take 1 tablet (50 mg) by mouth Daily Acne, unspecified acne type - spironolactone (Aldactone) 50 MG tablet; Take 1 tablet (50 mg) by mouth in the morning and 1 tablet (50 mg) before bedtime. Chronic migraine without aura without status migrainosus, not intractable (CMS/HCC) - Rimegepant Sulfate (Nurtec) 75 MG tablet dispersible; Take 75 mg by mouth every other day Assessment & Plan 1. Weight management: Stable. - Discussed potential benefits of Contrave, a combination of Wellbutrin and naltrexone, for weight loss. - Prescription for Wellbutrin: Start with 1 tablet in the morning and 1 tablet at night, gradually increase by 1 tablet each week until reaching 2 tablets twice daily. - Discussed side effects, generally well-tolerated. Failed prophylactic medications: amitriptyline, SSRI, SNRI - These were taken for at least 90 days at max tolerated dose without successful prophylactic treatment. Failed acute/abortive medications: sumatriptan naratriptan Discussed use of daily prophylactic CGRP antagonist is indicated given failure of above medications. This is a new treatment for her but has taken it in the past. Discussed precautions re medication overuse headache and she is not abusing abortive medication which would cause medication overuse headaches. Patient is having >5 severe migraine days per month which cause impairment and these episodes last greater than 6 hours. she also does admit to frequent phono/photophobia and nausea. 2. Headaches: Chronic. - Headaches potentially related to sleep apnea. - Prescription for Nurtec: Can be taken every 3 days as a prophylactic measure against migraines or as needed when a migraine occurs. 3. Sleep issues. - Referral to Dr. Eduardo Rodriguez for further evaluation. - Advised to contact his office to schedule an appointment. - If issues with the referral, inform us to resend. Follow-up - Follow-up with Dr. Eduardo Rodriguez for sleep issues. Gustavo Bernardo DO Patient Active Problem List Diagnosis Snoring Obesity (BMI 30-39.9) Attention deficit hyperactivity disorder (CMS/HCC) Prediabetes Chronic migraine without aura without status migrainosus, not intractable (CMS/HCC) Gastroesophageal reflux disease without esophagitis Past Medical History: Diagnosis Date Abnormal uterine bleeding ADHD (attention deficit hyperactivity disorder) (CMS/HCC) Anemia Anxiety Arthritis control counseling Breakthrough bleeding on depo provera Dental disease Dizziness Eczema Fatigue Headache History of ovarian cyst 2011 Menorrhagia Obesity 10/30/2022 Obesity with body mass index of 30.0-39.9 Sleep difficulties Well woman exam documented in this encounter [facility] 11-01-2024 History of Presen t illness Narrative Images from the original note were not included. [facility] PRIMARY CARE PHYSICIAN: Gustavo Bernardo DO Subjective Chief Complaint: Patient presents with: reflux HPI: Renetta Hope is a 34 year old female who presents with upper GI distress. Pt reports increasing symptoms over last 3-4 months. Describes post-prandial pressure, which sometimes causes her to skip meals (dinner). Also c/o belching, burning sensation, regurgitation, and nausea. No dysphagia. She has tried multiple different acid suppressing medications and Tums without relief. Stool H.pylori antigen was negative 09/2024, but completed while taking PPI. No family history of esophageal/gastric cancer. CURRENT MEDS PRIOR TO VISIT: No current outpatient medications on file. No current facility-administered medications for this visit. Allergies: Allergies: No Known Allergies No past medical history on file. No past surgical history on file. No family history on file. REVIEW OF SYSTEMS: All other reviewed and negative other than HPI. Objective: Vitals: BP 129/90 (BP Position: Sitting) Pulse 91 Temp 37.1 C (98.7 F) Ht 160 cm (5' 3 ) Wt 112.9 kg (249 lb) BMI 44.11 kg/m Physical Exam: CONST: Appears well nourished. No signs of acute distress present. Speech is normal. Alert and oriented X 3. No involuntary movement. Patient is cooperative. HEAD/FACE: Normocephalic on inspection. EYES: PERRLA. Sclerae clear and anicteric. Neck: Neck is supple RESP: Respiration rate is normal. CV: Rate is regular. Rhythm is regular. ABDOMEN: Abdomen is soft, nontender, and nondistended without guarding, rigidity or rebound tenderness. No abdominal masses palpable. No palpable hepatosplenomegaly. PERINEUM/ANUS/RECTUM: Exam deferred at this time. SKIN: Skin is warm and dry with no jaundice, lesions or rashes. NEURO: No focal deficits appreciated. DATA: Reviewed in CareEverywhere ASSESSMENT/PLAN: We will proceed with EGD. I have discussed the procedure in detail with the patient, including the benefits and risks such as bleeding, infection, and perforation. The patient understands these risks and is agreeable to proceed. Thank you for allowing us to participate in the care of Ms. Hope. Please feel free to call with any questions or concerns. Esther Holden MD [facility] [address] [place] [address], [address] [place] [address] documented in this encounter [facility] 10-05-2024 History of Presen t illness Narrative Images from the original note were not included. [place], [place] SUBJECTIVE: HPI: Renetta Hope is a 33 y.o. female who presents with chief complaint of No chief complaint on file. Subjective Renetta Hope is a 33 y.o. female who presents for evaluation of abdominal pain. Onset 1-2 weeks ago ago. Symptoms have been gradually worsening. The pain is described as painful, and is 4/10 in intensity. Pain is located in the periumbilical region without radiation. Aggravating factors: activity, movement, and pressure. Alleviating factors: none. Associated symptoms: none. The patient denies . Pt notes that this is in her belly button. She has noticed an odor and discharge. Pt did have have a [facility] 6 years ago and they did go through her belly button. Pt did note some redness and pain about a week ago. I have reviewed and reconciled the history and medication list with the patient today. History of Present Illness The patient presents for evaluation of drainage from her belly button. Approximately 2 weeks ago, drainage from the belly button was first noticed. A week later, significant inflammation and pain developed. Over the past 2 days, a reduction in both pain and inflammation has been experienced, although redness persists. The progression of the condition has been documented through photographs taken on Thursday and Thursday. Depression: Not at risk (10/05/2024) PHQ-2 PHQ-2 Score: 0 reports that she quit smoking about 3 years ago. Her smoking use included cigarettes. She started smoking about 18 years ago. She has a 15 pack-year smoking history. She has never used smokeless tobacco. She reports current alcohol use. She reports that she does not use drugs. OBJECTIVE: 04/28/2024 10:07 AM 05/25/2024 4:11 PM 06/24/2024 11:23 AM 08/01/2024 11:48 AM 08/01/2024 2:18 PM 09/21/2024 11:40 AM 10/05/2024 4:26 PM Vitals BMI 42.12 kg/m2 41.24 kg/m2 40.21 kg/m2 39.86 kg/m2 41.63 kg/m2 39.06 kg/m2 37.93 kg/m2 BSA (m2) 2.19 m2 2.17 m2 2.14 m2 2.13 m2 2.18 m2 2.26 m2 2.23 m2 Systolic 132 138 136 130 140 134 128 Diastolic 86 74 88 82 100 82 76 Heart Rate 100 104 109 100 108 94 SpO2 97 % 99 % 99 % 98 % 98 % 99 % Temp 97.5 F 97.6 F 97.3 F 98.6 F 97.2 F 99.2 F Height (in) 5' 3 5' 3 5' 3 5' 3 5' 6 5' 6 Weight (lb) 237.8 232.8 227 225 235 242 235 Visit Report Report Report Report Report Report Report Report Report Report Physical Exam Constitutional: General: She is not in acute distress. Appearance: She is not ill-appearing or toxic-appearing. HENT: Head: Normocephalic. Eyes: Conjunctiva/sclera: Conjunctivae normal. Pulmonary: Effort: Pulmonary effort is normal. No respiratory distress. Breath sounds: No stridor. Abdominal: General: Abdomen is flat. Tenderness: There is no abdominal tenderness. Musculoskeletal: General: No swelling or signs of injury. Normal range of motion. Cervical back: Normal range of motion. Skin: General: Skin is warm and dry. Neurological: General: No focal deficit present. Mental Status: She is alert. Mental status is at baseline. Psychiatric: Mood and Affect: Mood normal. Behavior: Behavior normal. Thought Content: Thought content normal. Judgment: Judgment normal. Physical Exam Gastrointestinal: Redness in the umbilical area, no surrounding erythema - no obvious drainage at the time of visit Results Recent Results (from the past 4 weeks) H. pylori antigen, stool Collection Time: 09/22/24 1:00 PM Result Value Ref Range H. PYLORI STOOL AG, EIA Negative Negative ASSESSMENT AND PLAN: Assessment/Plan Diagnoses and all orders for this visit: Omphalitis in adult - cephalexin (Keflex) 500 MG capsule; Take 1 capsule (500 mg) by mouth in the morning and 1 capsule (500 mg) before bedtime. Do all this for 7 days. - nystatin (Mycostatin) cream; Apply topically in the morning and before bedtime. Assessment & Plan 1. Umbilical drainage: Acute. - Oral antibiotics prescribed. - Nystatin ointment prescribed for topical application. - Monitor for signs of redness extending beyond the umbilical region. - Seek immediate medical attention at the emergency room if symptoms worsen. - Note patient does take Taltz which may increase risk of bacterial infection or marv Follow-up - Monitor condition and report any worsening symptoms. Gustavo Bernardo DO Patient Active Problem List Diagnosis Snoring Obesity (BMI 30-39.9) Attention deficit hyperactivity disorder ([facility]) Prediabetes Chronic migraine without aura without status migrainosus, not intractable ([facility]) Gastroesophageal reflux disease without esophagitis Past Medical History: Diagnosis Date Abnormal uterine bleeding ADHD (attention deficit hyperactivity disorder) ([facility]) Anemia Anxiety Arthritis control counseling Breakthrough bleeding on depo provera Dental disease Dizziness Eczema Fatigue Headache History of ovarian cyst 2010 Menorrhagia Obesity 10/30/2022 Obesity with body mass index of 30.0-39.9 Sleep difficulties Well woman exam documented in this encounter [facility] 09-21-2024 Telephone encounter Note Please fax sleep study result from home sleep study to [facility] [phone] [facility] 09-21-2024 Miscellaneous Notes Please fax sleep study result from home sleep study to [facility] sleep [facility] [phone] documented in this encounter [facility] 08-01-2024 History of Presen t illness Narrative Reason for Appointment: Patient ID: Renetta Hope is a 33 y.o. female who presents for IUD Check Patient presents today for String Check Follow Up appointment. MEDICATIONS Current Outpatient Medications Medication Instructions amitriptyline (ELAVIL) 50 mg, Oral, Nightly atomoxetine (STRATTERA) 10 mg, Oral, Daily meclizine (ANTIVERT) 25 mg, Oral, 3 times daily PRN Nurtec 75 mg, Oral, Daily PRN pantoprazole (PROTONIX) 40 mg, Oral, Daily before breakfast, Do not crush, chew, or split. phentermine (ADIPEX-P) 37.5 mg, Oral, Daily before breakfast spironolactone (ALDACTONE) 50 mg, Oral, 2 times daily Taltz 80 MG/ML injection triamcinolone (Kenalog) 0.1 % cream 1 application , 2 times daily ALLERGIES No Known Allergies PROBLEMS Active Ambulatory Problems Diagnosis Date Noted Snoring 10/30/2022 Obesity (BMI 30-39.9) 11/12/2022 Attention deficit hyperactivity disorder ([facility]) 08/10/2023 Prediabetes 08/10/2023 Chronic migraine without aura without status migrainosus, not intractable [place] 08/10/2023 Gastroesophageal reflux disease without esophagitis 08/10/2023 Resolved Ambulatory Problems Diagnosis Date Noted Obesity 10/30/2022 Past Medical History: Diagnosis Date Abnormal uterine bleeding ADHD (attention deficit hyperactivity disorder) ([facility]) Anemia Anxiety Arthritis control counseling Breakthrough bleeding on depo provera Dental disease Dizziness Eczema Fatigue Headache History of ovarian cyst 2011 Menorrhagia Obesity with body mass index of 30.0-39.9 Sleep difficulties Well woman exam HISTORY PAST MEDICAL HISTORY SOCIAL HISTORY Past Medical History: Diagnosis Date Abnormal uterine bleeding ADHD (attention deficit hyperactivity disorder) ([facility] Anemia Anxiety Arthritis control counseling Breakthrough bleeding on depo provera Dental disease Dizziness Eczema Fatigue Headache History of ovarian cyst 2011 Menorrhagia Obesity 10/30/2022 Obesity with body mass index of 30.0-39.9 Sleep difficulties Well woman exam Social History Tobacco Use Smoking status: Former Current packs/day: 0.00 Average packs/day: 1 pack/day for 15.0 years (15.0 ttl pk-yrs) Types: Cigarettes Start date: 08/23/2006 Quit date: 08/23/2021 Years since quittin.9 Smokeless tobacco: Never Tobacco comments: Nicotine Vape Vaping Use Vaping status: Every Day Substances: Nicotine Substance Use Topics Alcohol use: Yes Comment: occasional alcohol use Drug use: Never FAMILY HISTORY Family History Problem Relation Name Age of Onset Hypertension Mother Fariha Mental illness Mother Fariha Migraines Mother Fariha Other (necrosis in hip) Mother Fariha Depression Mother Fariha Diabetes Father Brandon Hypertension Father Brandon Mental illness Brother Loki 2 brothers Cancer Brother Loki Mental illness Maternal Grandmother No Known Problems Daughter Sabina Miscarriages / Stillbirths Father's Sister Liudmila SURGICAL HISTORY Past Surgical History: Procedure Laterality Date CHOLECYSTECTOMY DILATION AND CURETTAGE REVIEW OF SYSTEMS Review of Systems: Review of Systems Constitutional: Negative. HENT: Negative. Eyes: Negative. Respiratory: Negative. Cardiovascular: Negative. Gastrointestinal: Negative. Genitourinary: Negative. Musculoskeletal: Negative. Skin: Negative. Neurological: Negative. All other systems reviewed and are negative. Hematological: Negative. Endocrine: Negative. Allergic/Immunologic: Negative. OBJECTIVE Objective: Physical Exam Constitutional: Appearance: Normal appearance. She is normal weight. HENT: Head: Normocephalic. Cardiovascular: Rate and Rhythm: Normal rate. Pulses: Normal pulses. Pulmonary: Effort: Pulmonary effort is normal. Breath sounds: Normal breath sounds. Abdominal: Palpations: Abdomen is soft. Musculoskeletal: General: Normal range of motion. Neurological: General: No focal deficit present. Mental Status: She is alert and oriented to person, place, and time. Psychiatric: Mood and Affect: Mood normal. Behavior: Behavior normal. Thought Content: Thought content normal. Judgment: Judgment normal. Vitals and nursing note reviewed. Vitals: Estimated body mass index is 41.63 kg/m as calculated from the following: Height as of an earlier encounter on 08/01/24: 5' 3 . Weight as of this encounter: 235 lb. BP: (!) 140/100 No LMP recorded. Patient has had an implant. ASSESSMENT & PLAN ICD-10-CM 1. IUD check up Z30.431 US pelvis transvaginal Patient having some pain and cramping, string seen but we will check placement due to pain Patient BP elevated today and she states she has been running around all day and feels that is why it may be elevated. Pt would like to start zepbound in combination with her Talz injections she uses for her eczema. Patient encouraged to follow with PCP to discuss BP and use of zepbound Documented by SYDNEE Roth on behalf of: SYDNEE Roth documented in this encounter [facility] 08-01-2024 History of Presen t illness Narrative Images from the original note were not included. [facility] Carmen SUBJECTIVE: HPI: Renetta Hope is a 33 y.o. female who presents with chief complaint of Follow-up Pt states that she has no concerns or complaints I have reviewed and reconciled the history and medication list with the patient today. History of Present Illness The patient presents for weight loss and migraine. She has been experiencing an increase in the frequency of her migraines, with a particularly severe episode occurring last weekend. This episode was characterized by intense pain that confined her to bed for the entire day, accompanied by crying and nausea. She does not experience any visual disturbances prior to the onset of her migraines but reports a sensation of pressure building up in her neck and the base of her head, which then radiates to her temples. She also experiences sensitivity to light during these episodes. Despite being on amitriptyline, she continues to experience 3 to 4 migraines per month. She is uncertain if her migraines are influenced by weather changes, as she has observed that her body tends to react to such fluctuations. She has previously been prescribed Imitrex and Nurtec, the latter of which was provided by Dr. Chin's nurse during her initial consultation for migraines. She found Nurtec to be effective in halting the progression of her migraines within an hour of onset. She has lost a couple of pounds since her last visit. Supplemental Information She has scheduled an appointment with a sleep doctor next month. She has an appointment with the governor assembler at the end of September 2024. MEDICATIONS Current: Adipex, amitriptyline Past: Imitrex, Nurtec Depression: Not at risk (08/01/2024) PHQ-2 PHQ-2 Score: 0 reports that she quit smoking about 2 years ago. Her smoking use included cigarettes. She started smoking about 17 years ago. She has a 15 pack-year smoking history. She has never used smokeless tobacco. She reports current alcohol use. She reports that she does not use drugs. OBJECTIVE: 01/28/2024 4:20 PM 04/19/2024 9:04 AM 04/28/2024 10:07 AM 05/25/2024 4:11 PM 06/24/2024 11:23 AM 08/01/2024 11:48 AM 08/01/2024 2:18 PM Vitals BMI 40.64 kg/m2 41.88 kg/m2 42.12 kg/m2 41.24 kg/m2 40.21 kg/m2 39.86 kg/m2 41.63 kg/m2 BSA (m2) 2.15 m2 2.18 m2 2.19 m2 2.17 m2 2.14 m2 2.13 m2 2.18 m2 Systolic 122 122 132 138 136 130 140 Diastolic 80 86 86 74 88 82 100 Heart Rate 92 94 100 104 109 100 SpO2 98 % 99 % 97 % 99 % 99 % 98 % Temp 97.5 F 97.2 F 97.5 F 97.6 F 97.3 F 98.6 F Height (in) 5' 3 5' 3 5' 3 5' 3 5' 3 5' 3 Weight (lb) 229.4 236.4 237.8 232.8 227 225 235 Visit Report Report Report Report Report Report Report Report Report Report Physical Exam Constitutional: General: She is not in acute distress. Appearance: She is not ill-appearing. HENT: Head: Normocephalic. Cardiovascular: Rate and Rhythm: Normal rate and regular rhythm. Heart sounds: No murmur heard. Pulmonary: Effort: Pulmonary effort is normal. Breath sounds: Normal breath sounds. No wheezing. Abdominal: General: Abdomen is flat. There is no distension. Tenderness: There is no abdominal tenderness. Musculoskeletal: General: No deformity. Normal range of motion. Cervical back: Normal range of motion. Skin: General: Skin is warm and dry. Neurological: General: No focal deficit present. Mental Status: She is alert and oriented to person, place, and time. Psychiatric: Mood and Affect: Mood normal. Behavior: Behavior normal. Thought Content: Thought content normal. Judgment: Judgment normal. Physical Exam Results No results found for this or any previous visit (from the past 4 weeks). ASSESSMENT AND PLAN: Assessment/Plan Diagnoses and all orders for this visit: Migraine without aura and without status migrainosus, not intractable ([facility]) - Rimegepant Sulfate (Nurtec) 75 MG tablet dispersible; Take 75 mg by mouth Daily as needed (at onset of migraine) Class 3 severe obesity due to excess calories without serious comorbidity with body mass index (BMI) of 40.0 to 44.9 in adult ([facility]) - phentermine (Adipex-P) 37.5 MG tablet; Take 1 tablet (37.5 mg) by mouth in the morning. Take before meals. Assessment & Plan 1. Weight management. She has achieved a weight loss of 5 percent over the past 3 months. She will continue her current regimen of Adipex. She is advised to contact the office via [employer] or phone call for prescription refills as needed. 2. Migraine. She experiences migraines 3 to 4 times per month, even while on amitriptyline. She reports that Nurtec has been effective in stopping migraines within an hour of onset. A prescription for Nurtec has been issued. She is instructed to take Nurtec at the onset of a migraine. If insurance requires trying additional triptans before coverage, alternative triptans will be prescribed to meet the trial requirements. Failed acute/abortive medications: imitrex, nurtec - Imitrex did not reduce headache severity at onset satisfactorily, nurtec worked well for her. Discussed use of CGRP antagonist is indicated given failure of above medications for acute treatment of migraine. This is a continuing treatment for her. Discussed precautions re medication overuse headache and she is not abusing abortive medication which would cause medication overuse headaches. Patient is having 3-4 severe migraine days per month which cause impairment and these episodes last greater than 6 hours. she also does admit to frequent phono/photophobia and nausea. Follow-up The patient will follow up in 3 months. Gustavo Bernardo DO Patient Active Problem List Diagnosis Snoring Obesity (BMI 30-39.9) Attention deficit hyperactivity disorder (CMS/HCC) Prediabetes Chronic migraine without aura without status migrainosus, not intractable (CMS/HCC) Gastroesophageal reflux disease without esophagitis Past Medical History: Diagnosis Date Abnormal uterine bleeding ADHD (attention deficit hyperactivity disorder) (CMS/HCC) Anemia Anxiety Arthritis control counseling Breakthrough bleeding on depo provera Dental disease Dizziness Eczema Fatigue Headache History of ovarian cyst 2010 Menorrhagia Obesity 10/30/2022 Obesity with body mass index of 30.0-39.9 Sleep difficulties Well woman exam documented in this encounter [facility] 06-24-2024 History of Presen t illness Narrative Images from the original note were not included. [facility]en SUBJECTIVE: HPI: Renetta Hope is a 33 y.o. female who presents with chief complaint of Follow-up Pt states that she is here for a follow up on her adipex. Pt states she has no concerns at this time. I have reviewed and reconciled the history and medication list with the patient today. Depression: Not at risk (04/19/2024) PHQ-2 PHQ-2 Score: 0 reports that she quit smoking about 2 years ago. Her smoking use included cigarettes. She started smoking about 17 years ago. She has a 15 pack-year smoking history. She has never used smokeless tobacco. She reports current alcohol use. She reports that she does not use drugs. OBJECTIVE: 09/03/2023 9:14 AM 10/26/2023 3:40 PM 01/28/2024 4:20 PM 04/19/2024 9:04 AM 04/28/2024 10:07 AM 05/25/2024 4:11 PM 06/24/2024 11:23 AM Vitals BMI 41.7 kg/m2 42.18 kg/m2 40.64 kg/m2 41.88 kg/m2 42.12 kg/m2 41.24 kg/m2 40.21 kg/m2 BSA (m2) 2.18 m2 2.19 m2 2.15 m2 2.18 m2 2.19 m2 2.17 m2 2.14 m2 Systolic 124 130 122 122 132 138 136 Diastolic 74 70 80 86 86 74 88 Heart Rate 92 94 100 104 109 SpO2 98 % 99 % 97 % 99 % 99 % Temp 97.5 F 97.2 F 97.5 F 97.6 F 97.3 F Height (in) 5' 3 5' 3 5' 3 5' 3 5' 3 Weight (lb) 235.4 238.12 229.4 236.4 237.8 232.8 227 Visit Report Report Report Report Report Report Report Report Physical Exam Constitutional: General: She is not in acute distress. Appearance: She is not ill-appearing. HENT: Head: Normocephalic. Cardiovascular: Rate and Rhythm: Normal rate and regular rhythm. Heart sounds: No murmur heard. Pulmonary: Effort: Pulmonary effort is normal. Breath sounds: Normal breath sounds. No wheezing. Abdominal: General: Abdomen is flat. There is no distension. Tenderness: There is no abdominal tenderness. Musculoskeletal: General: No deformity. Normal range of motion. Cervical back: Normal range of motion. Skin: General: Skin is warm and dry. Neurological: General: No focal deficit present. Mental Status: She is alert and oriented to person, place, and time. Psychiatric: Mood and Affect: Mood normal. Behavior: Behavior normal. Thought Content: Thought content normal. Judgment: Judgment normal. No results found for this or any previous visit (from the past 4 weeks). ASSESSMENT AND PLAN: Assessment/Plan Diagnoses and all orders for this visit: Class 3 severe obesity due to excess calories without serious comorbidity with body mass index (BMI) of 40.0 to 44.9 in adult ([facility]) - phentermine (Adipex-P) 37.5 MG tablet; Take 1 tablet (37.5 mg) by mouth in the morning. Take before meals. After review of vitals including weight trend and discussion of board of pharmacy regulations, the patient is making satisfactory progress in weight loss on adipex. She will continue on the current tx. No intolerable side effects noted. Discussed continued lifestyle modifications to ensure she continues to lose weight. Gustavo Bernardo DO Patient Active Problem List Diagnosis Snoring Obesity (BMI 30-39.9) Attention deficit hyperactivity disorder ([facility]) Prediabetes Chronic migraine without aura without status migrainosus, not intractable ([facility]) Gastroesophageal reflux disease without esophagitis Past Medical History: Diagnosis Date Abnormal uterine bleeding ADHD (attention deficit hyperactivity disorder) ([facility]) Anemia Anxiety Arthritis control counseling Breakthrough bleeding on depo provera Dental disease Dizziness Eczema Fatigue Headache History of ovarian cyst 2010 Menorrhagia Obesity 10/30/2022 Obesity with body mass index of 30.0-39.9 Sleep difficulties Well woman exam documented in this encounter [facility] 05-25-2024 History of Presen t illness Narrative Images from the original note were not included. [place], [place] SUBJECTIVE: HPI: Renetta Hope is a 33 y.o. female who presents with chief complaint of Follow-up Pt states she is here for a follow up on medication. Pt states she has no concerns at this time. Pt states she needs a refill on her spironolactone. I have reviewed and reconciled the history and medication list with the patient today. Depression: Not at risk (04/19/2024) PHQ-2 PHQ-2 Score: 0 reports that she quit smoking about 2 years ago. Her smoking use included cigarettes. She started smoking about 17 years ago. She has a 15 pack-year smoking history. She has never used smokeless tobacco. She reports current alcohol use. She reports that she does not use drugs. OBJECTIVE: 08/10/2023 8:41 AM 09/03/2023 9:14 AM 10/26/2023 3:40 PM 01/28/2024 4:20 PM 04/19/2024 9:04 AM 04/28/2024 10:07 AM 05/25/2024 4:11 PM Vitals BMI 39.54 kg/m2 41.7 kg/m2 42.18 kg/m2 40.64 kg/m2 41.88 kg/m2 42.12 kg/m2 41.24 kg/m2 BSA (m2) 2.12 m2 2.18 m2 2.19 m2 2.15 m2 2.18 m2 2.19 m2 2.17 m2 Systolic 138 124 130 122 122 132 138 Diastolic 86 74 70 80 86 86 74 Heart Rate 96 92 94 100 104 SpO2 98 % 98 % 99 % 97 % 99 % Temp 97.9 F 97.5 F 97.2 F 97.5 F 97.6 F Height (in) 5' 3 5' 3 5' 3 5' 3 5' 3 Weight (lb) 223.2 235.4 238.12 229.4 236.4 237.8 232.8 Visit Report Report Report Report Report Report Report Report Physical Exam Constitutional: General: She is not in acute distress. Appearance: She is not ill-appearing. HENT: Head: Normocephalic. Cardiovascular: Rate and Rhythm: Normal rate and regular rhythm. Heart sounds: No murmur heard. Pulmonary: Effort: Pulmonary effort is normal. Breath sounds: Normal breath sounds. No wheezing. Abdominal: General: Abdomen is flat. There is no distension. Tenderness: There is no abdominal tenderness. Musculoskeletal: General: No deformity. Normal range of motion. Cervical back: Normal range of motion. Skin: General: Skin is warm and dry. Neurological: General: No focal deficit present. Mental Status: She is alert and oriented to person, place, and time. Psychiatric: Mood and Affect: Mood normal. Behavior: Behavior normal. Thought Content: Thought content normal. Judgment: Judgment normal. No results found for this or any previous visit (from the past 4 weeks). ASSESSMENT AND PLAN: Assessment/Plan Diagnoses and all orders for this visit: Acne, unspecified acne type - spironolactone (Aldactone) 50 MG tablet; Take 1 tablet (50 mg) by mouth in the morning and 1 tablet (50 mg) before bedtime. Class 3 severe obesity due to excess calories without serious comorbidity with body mass index (BMI) of 40.0 to 44.9 in adult ([facility]) - phentermine (Adipex-P) 37.5 MG tablet; Take 1 tablet (37.5 mg) by mouth in the morning. Take before meals. After review of vitals including weight trend and discussion of board of pharmacy regulations, the patient is making satisfactory progress in weight loss on adipex. She will continue on the current tx. No intolerable side effects noted. Discussed continued lifestyle modifications to ensure she continues to lose weight. Gustavo Bernardo DO Patient Active Problem List Diagnosis Snoring Obesity (BMI 30-39.9) Attention deficit hyperactivity disorder ([facility]/HCC) Prediabetes Chronic migraine without aura without status migrainosus, not intractable ([facility]) Gastroesophageal reflux disease without esophagitis Past Medical History: Diagnosis Date Abnormal uterine bleeding ADHD (attention deficit hyperactivity disorder) ([facility]) Anemia Anxiety Arthritis control counseling Breakthrough bleeding on depo provera Dental disease Dizziness Eczema Fatigue Headache History of ovarian cyst 2010 Menorrhagia Obesity 10/30/2022 Obesity with body mass index of 30.0-39.9 Sleep difficulties Well woman exam documented in this encounter [facility] 04-28-2024 History of Presen t illness Narrative Images from the original note were not included. [facility] [place] SUBJECTIVE: HPI: Renetta Hope is a 33 y.o. female who presents with chief complaint of Acne Pt states she is here for acne treatment. I have reviewed and reconciled the history and medication list with the patient today. History of Present Illness The patient presents for evaluation of multiple medical concerns. She is experiencing a large cold sore and is seeking treatment. She has been under significant stress and is keen to lose weight, aiming for a reduction of 20 to 25 pounds. She has previously used Ozempic for weight loss but discontinued it due to the need for injections. She is open to trying Adipex for weight loss. She has also been dealing with acne and hair growth issues. She has tried various treatments, including spironolactone, minocycline, and different creams prescribed by her talent acquisition lead and former family doctor. She has been on spironolactone for at least 6 months. She is currently under the care of a optical engineer for her psoriatic arthritis. Depression: Not at risk (04/19/2024) PHQ-2 PHQ-2 Score: 0 reports that she quit smoking about 2 years ago. Her smoking use included cigarettes. She started smoking about 17 years ago. She has a 15 pack-year smoking history. She has never used smokeless tobacco. She reports current alcohol use. She reports that she does not use drugs. OBJECTIVE: 08/10/2023 8:41 AM 09/03/2023 9:14 AM 10/26/2023 3:40 PM 01/28/2024 4:20 PM 04/19/2024 9:04 AM 04/28/2024 10:07 AM 05/25/2024 4:11 PM Vitals BMI 39.54 kg/m2 41.7 kg/m2 42.18 kg/m2 40.64 kg/m2 41.88 kg/m2 42.12 kg/m2 41.24 kg/m2 BSA (m2) 2.12 m2 2.18 m2 2.19 m2 2.15 m2 2.18 m2 2.19 m2 2.17 m2 Systolic 138 124 130 122 122 132 138 Diastolic 86 74 70 80 86 86 74 Heart Rate 96 92 94 100 104 SpO2 98 % 98 % 99 % 97 % 99 % Temp 97.9 F 97.5 F 97.2 F 97.5 F 97.6 F Height (in) 5' 3 5' 3 5' 3 5' 3 5' 3 Weight (lb) 223.2 235.4 238.12 229.4 236.4 237.8 232.8 Visit Report Report Report Report Report Report Report Report Physical Exam Constitutional: General: She is not in acute distress. Appearance: She is not ill-appearing. HENT: Head: Normocephalic. Cardiovascular: Rate and Rhythm: Normal rate and regular rhythm. Heart sounds: No murmur heard. Pulmonary: Effort: Pulmonary effort is normal. Breath sounds: Normal breath sounds. No wheezing. Abdominal: General: Abdomen is flat. There is no distension. Tenderness: There is no abdominal tenderness. Musculoskeletal: General: No deformity. Normal range of motion. Cervical back: Normal range of motion. Skin: General: Skin is warm and dry. Neurological: General: No focal deficit present. Mental Status: She is alert and oriented to person, place, and time. Psychiatric: Mood and Affect: Mood normal. Behavior: Behavior normal. Thought Content: Thought content normal. Judgment: Judgment normal. Physical Exam Results Laboratory Studies Cortisol is at the lower end of the normal range. A1c is in the prediabetic range. Blood sugar was 94. Kidney function, liver function, and electrolytes were all good. Platelets are high. No results found for this or any previous visit (from the past 4 weeks). ASSESSMENT AND PLAN: Assessment/Plan Diagnoses and all orders for this visit: Herpes zoster without complication - valACYclovir (Valtrex) 1 g tablet; Take 1 tablet (1,000 mg) by mouth every 8 (eight) hours for 7 days Class 3 severe obesity due to excess calories without serious comorbidity with body mass index (BMI) of 40.0 to 44.9 in adult ([facility]) Prediabetes Assessment & Plan 1. Cold sore. She requested treatment for a cold sore. Treatment will be provided. 2. Prediabetes. Her lab results indicate that her A1c is in the prediabetic range, suggesting a slightly elevated 3-month average blood sugar level. Kidney and liver functions, as well as electrolytes, are all within normal limits. Blood counts are also normal, with the exception of elevated platelets, which could indicate inflammation. Weight loss through dietary modifications and increased physical activity was recommended. A 10 percent reduction in her current body weight could significantly reduce the risk of progression to type 2 diabetes. Adipex was suggested as a potential aid for weight loss, with the condition that she loses 5 percent of her body weight within the first 3 months of use. If this goal is achieved, follow-up visits will be scheduled every 3 months. Intermittent fasting and a low carbohydrate diet were also recommended. She was advised to monitor her blood pressure weekly while on Adipex. Discussed treatment for obesity and offered multiple medications which could help with weight loss including benefits and potential risks/side effects of each. Patient and I agreed to proceed with Adipex treatment. Discussed board of pharmacy regulations as well as specific dietary/lifestyle modifications which should be continued throughout course of treatment and after. I answered all of the patient's questions completely. 3. Acne. She has been on spironolactone for acne and hair growth and previously used minocycline and various creams. She will continue to see her optical engineer for further management. 4. Psoriatic arthritis. She continues to see her optical engineer for management of psoriatic arthritis. Follow-up Return in 1 month for follow up. Gustavo Bernardo DO Patient Active Problem List Diagnosis Snoring Obesity (BMI 30-39.9) Attention deficit hyperactivity disorder (CMS/HCC) Prediabetes Chronic migraine without aura without status migrainosus, not intractable (CMS/HCC) Gastroesophageal reflux disease without esophagitis Past Medical History: Diagnosis Date Abnormal uterine bleeding ADHD (attention deficit hyperactivity disorder) (CMS/HCC) Anemia Anxiety Arthritis control counseling Breakthrough bleeding on depo provera Dental disease Dizziness Eczema Fatigue Headache History of ovarian cyst 2010 Menorrhagia Obesity 10/30/2022 Obesity with body mass index of 30.0-39.9 Sleep difficulties Well woman exam documented in this encounter [facility] 04-21-2024 Telephone encounter Note Nope no urine sample necessary for those labs [facility] 04-21-2024 Miscellaneous Notes Nope no urine sample necessary for those labs Pt wanted to know if the lab orders included a urine sample. She is getting them done tomorrow. I told her I didn't think so but if I was wrong I would call her back. documented in this encounter [facility] 04-21-2024 Telephone encounter Note Pt wanted to know if the lab orders included a urine sample. She is getting them done tomorrow. I told her I didn't think so but if I was wrong I would call her back. [facility] 04-19-2024 History of Presen t illness Narrative Images from the original note were not included. [facility] SUBJECTIVE: HPI: Renetta Hope is a 33 y.o. female who presents with chief complaint of Follow-up Pt states she would like to discuss the possibility of high cortisol. Pt states she has had weight gain, trouble with sleep, acne, stress. Pt states she needs a refill on her meclizine I have reviewed and reconciled the history and medication list with the patient today. Depression: Not at risk (04/19/2024) PHQ-2 PHQ-2 Score: 0 reports that she quit smoking about 2 years ago. Her smoking use included cigarettes. She started smoking about 17 years ago. She has a 15 pack-year smoking history. She has never used smokeless tobacco. She reports current alcohol use. She reports that she does not use drugs. OBJECTIVE: 05/07/2023 9:47 AM 06/11/2023 9:50 AM 08/10/2023 8:41 AM 09/03/2023 9:14 AM 10/26/2023 3:40 PM 01/28/2024 4:20 PM 04/19/2024 9:04 AM Vitals BMI 38.05 kg/m2 39.33 kg/m2 39.54 kg/m2 41.7 kg/m2 42.18 kg/m2 40.64 kg/m2 41.88 kg/m2 BSA (m2) 2.08 m2 2.12 m2 2.12 m2 2.18 m2 2.19 m2 2.15 m2 2.18 m2 Systolic 140 124 138 124 130 122 122 Diastolic 80 76 86 74 70 80 86 Heart Rate 96 92 94 SpO2 98 % 98 % 99 % Temp 97.9 F 97.5 F 97.2 F Height (in) 5' 3 5' 3 5' 3 Weight (lb) 214.8 222 223.2 235.4 238.12 229.4 236.4 Visit Report Report Report Report Report Report Report Physical Exam Constitutional: General: She is not in acute distress. Appearance: She is not ill-appearing. HENT: Head: Normocephalic. Cardiovascular: Rate and Rhythm: Normal rate and regular rhythm. Heart sounds: No murmur heard. Pulmonary: Effort: Pulmonary effort is normal. Breath sounds: Normal breath sounds. No wheezing. Abdominal: General: Abdomen is flat. There is no distension. Tenderness: There is no abdominal tenderness. Musculoskeletal: General: No deformity. Normal range of motion. Cervical back: Normal range of motion. Skin: General: Skin is warm and dry. Comments: Acne of face noted Neurological: General: No focal deficit present. Mental Status: She is alert and oriented to person, place, and time. Psychiatric: Mood and Affect: Mood normal. Behavior: Behavior normal. Thought Content: Thought content normal. Judgment: Judgment normal. No results found for this or any previous visit (from the past 4 weeks). ASSESSMENT AND PLAN: Assessment/Plan Diagnoses and all orders for this visit: Wellness examination - CBC and differential; Future - Comprehensive metabolic panel; Future - Lipid panel; Future - Hemoglobin A1c; Future - Cortisol; Future Vertigo - meclizine (Antivert) 25 MG tablet; Take 1 tablet (25 mg) by mouth 3 (three) times a day as needed for dizziness Insulin resistance - Hemoglobin A1c; Future - Cortisol; Future Abnormal weight gain - Hemoglobin A1c; Future - Cortisol; Future Call with lab results, consider alternate tx for acne if cortisol is normal Preventative care discussed as appropriate. Previous labs were reviewed, new orders placed as appropriate. Recommend continuing annual wellness examinations. Gustavo Bernardo DO Patient Active Problem List Diagnosis Snoring Obesity (BMI 30-39.9) Attention deficit hyperactivity disorder (CMS/HCC) Prediabetes Chronic migraine without aura without status migrainosus, not intractable (CMS/HCC) Gastroesophageal reflux disease without esophagitis Past Medical History: Diagnosis Date Abnormal uterine bleeding ADHD (attention deficit hyperactivity disorder) (CMS/HCC) Anemia Anxiety Arthritis control counseling Breakthrough bleeding on depo provera Dental disease Dizziness Eczema Fatigue Headache History of ovarian cyst 2011 Menorrhagia Obesity 10/30/2022 Obesity with body mass index of 30.0-39.9 Sleep difficulties Well woman exam documented in this encounter [facility] 01-28-2024 History of Presen t illness Narrative Images from the original note were not included. SUBJECTIVE: HPI: Renetta Hope is a 33 y.o. female who presents with chief complaint of Follow-up (Pt states she would like to discuss fibromyalgia. Pt states she has been experiencing exhaustion, can't sleep, can't stay asleep, body aches. ) HPI Depression: Not on file reports that she quit smoking about 2 years ago. Her smoking use included cigarettes. She started smoking about 17 years ago. She has a 15 pack-year smoking history. She has never used smokeless tobacco. She reports current alcohol use. She reports that she does not use drugs. OBJECTIVE: 04/08/2023 3:59 PM 05/07/2023 9:47 AM 06/11/2023 9:50 AM 08/10/2023 8:41 AM 09/03/2023 9:14 AM 10/26/2023 3:40 PM 01/28/2024 4:20 PM Vitals BMI 38.76 kg/m2 38.05 kg/m2 39.33 kg/m2 39.54 kg/m2 41.7 kg/m2 42.18 kg/m2 40.64 kg/m2 BSA (m2) 2.1 m2 2.08 m2 2.12 m2 2.12 m2 2.18 m2 2.19 m2 2.15 m2 Systolic 120 140 124 138 124 130 122 Diastolic 70 80 76 86 74 70 80 Heart Rate 96 92 SpO2 98 % 98 % Temp 97.9 F 97.5 F Height (in) 5' 3 5' 3 5' 3 Weight (lb) 218.8 214.8 222 223.2 235.4 238.12 229.4 Visit Report Report Report Report Report Report Report Physical Exam Constitutional: General: She is not in acute distress. Appearance: She is not ill-appearing or toxic-appearing. HENT: Head: Normocephalic. Eyes: Conjunctiva/sclera: Conjunctivae normal. Pulmonary: Effort: Pulmonary effort is normal. No respiratory distress. Breath sounds: No stridor. Abdominal: General: Abdomen is flat. Tenderness: There is no abdominal tenderness. Musculoskeletal: General: Tenderness (multiple large muscle groups) present. No swelling or signs of injury. Normal range of motion. Cervical back: Normal range of motion. Skin: General: Skin is warm and dry. Neurological: General: No focal deficit present. Mental Status: She is alert. Mental status is at baseline. Psychiatric: Mood and Affect: Mood normal. Behavior: Behavior normal. Thought Content: Thought content normal. Judgment: Judgment normal. No results found for this or any previous visit (from the past 2 hour(s)). ASSESSMENT AND PLAN: Assessment/Plan Diagnoses and all orders for this visit: Vertigo - meclizine (Antivert) 25 MG tablet; Take 1 tablet (25 mg) by mouth 3 (three) times a day as needed for dizziness Chronic migraine without aura without status migrainosus, not intractable (CMS/HCC) - amitriptyline (Elavil) 50 MG tablet; Take 1 tablet (50 mg) by mouth at bedtime Fibromyalgia Focus on sleep, inc dose of elavil and repeat HST - snores loudly with hypersomnia and interruped sleep Consider alernative medications in the future. Patient Active Problem List Diagnosis Snoring Obesity (BMI 30-39.9) Attention deficit hyperactivity disorder (CMS/HCC) Prediabetes Chronic migraine without aura without status migrainosus, not intractable (CMS/HCC) Gastroesophageal reflux disease without esophagitis Past Medical History: Diagnosis Date Abnormal uterine bleeding ADHD (attention deficit hyperactivity disorder) (CMS/HCC) Anemia Anxiety Arthritis control counseling Breakthrough bleeding on depo provera Dental disease Dizziness Eczema Fatigue Headache History of ovarian cyst 2010 Menorrhagia Obesity 10/30/2022 Obesity with body mass index of 30.0-39.9 Sleep difficulties Well woman exam documented in this encounter [facility] Evaluation note No assessment inform ation available [facility] Work Phone: Evaluation note Diagnosis Wellness examination- Primary Vertigo Dizziness and giddiness Insulin resistance Other abnormal glucose Abnormal weight gain documented in this encounter [facility] HealthcareEvaluation note* Diagnosis Vertigo- Primary Dizziness and giddiness Chronic migraine without aura without status migrainosus, not intractable (CMS/HCC) Fibromyalgia Unspecified myalgia and myositis documented in this encounter [facility]* Diagnosis Acne, unspecified acne type- Primary Class 3 severe obesity due to excess calories without serious comorbidity with body mass index (BMI) of 40.0 to 44.9 in adult (CMS/HCC) documented in this encounter [facility] HealthcareEvaluation note* Diagnosis Herpes zoster without complication- Primary Class 3 severe obesity due to excess calories without serious comorbidity with body mass index (BMI) of 40.0 to 44.9 in adult (CMS/[facility]) Prediabetes Other abnormal glucose documented in this encounter [facility] HealthcareEvaluation note* Diagnosis Gastroesophageal reflux disease without esophagitis Esophageal reflux documented in this encounter [facility] note* Diagnosis Attention deficit hyperactivity disorder (ADHD), predominantly inattentive type ([facility]) documented in this encounter [facility]Evaluation note* Diagnosis Class 3 severe obesity due to excess calories without serious comorbidity with body mass index (BMI) of 40.0 to 44.9 in adult ([facility]) documented in this encounter [facility]Evaluation note* Diagnosis Migraine without aura and without status migrainosus, not intractable [place] Primary Class 3 severe obesity due to excess calories without serious comorbidity with body mass index (BMI) of 40.0 to 44.9 in adult [place] documented in this encounter [facility]* Diagnosis IUD check up documented in this encounter [facility] note* Diagnosis Onset Date Resolution Status Admit Date ADHD (attention deficit hyperactivity disorder) acute September 282024 3:53pm Chronic insomnia acute September 282024 3:53pm Generalized anxiety disorder acute September 28, 2024 3:53pm Hypersomnia acute September 28, 025 3:53pm Hypnagogic hallucinations acute September 28, 2024 3:53pm Migraine without aura acute Sep 3:53pm Narcolepsy without cataplexy acute September 28, 2024 3:53pm PTSD (post-traumatic stress disorder) acute September 28, 2024 3:53pm Sleep paralysis acute September 3:53pm Snoring acute September 28 3:53pm [facility] Work Phone: Evaluation note* Diagnosis Omphalitis in adult- Primary Unspecified local infection of skin and subcutaneous tissue documented in this encounter [facility] HealthcareEvaluation note* Diagnosis Class 2 obesity due to excess calories without serious comorbidity with body mass index (BMI) of 39.0 to 39.9 in adult- Primary Acne, unspecified acne type Chronic migraine without aura without status migrainosus, not intractable [place] documented in this encounter [facility] note* Diagnosis Gastroesophageal reflux disease, unspecified whether esophagitis present- Primary [facility] Diagnosis Well woman exam with routine gynecological exam Routine gynecological examination documented in this encounter [facility] Summary Purpose Family History No Family History Records FoundNo Family History Records FoundNo Family History Records FoundNo Family History Records FoundNo Family History Records Found Advance Directives Advance Directive Response Recorded Date/ Time Advance Directives No October 01 023 9:50am Chief Complaint and Reason for Visit Chief Complaint Admit Date snoring, restless sleep, failed HST Apri l 2024 3:53pm Reason for Visit Admit Date ADHD (attention deficit hyperactivity di sorder) September 28, 2024 3:53pm Chronic insomnia September 28, 2024 3:5 3pm Generalized anxiety disorder September 28, 2024 3:53pm Hypersomnia September 28, 2024 3:5 3pm Hypnagogic hallucinations September 28 3:53pm Migraine without aura September 28, 2024 3 :53pm Narcolepsy without cataplexy September 28, 2024 3:53pm PTSD (post-traumatic stress disorder) Ap ril 2024 3:53pm Sleep paralysis September 28, 2024 3:5 3pm Snoring September 28, 2024 3:5 3pm Additional Source Comments INFORMATION SOURCE (unrecogn ized section and content) DATE CREATED AUTHOR 11/27/2017 [facility] DATE CREATED AUTHOR AUTHOR'S ORGANIZ ATION 12/02/2017 [facility] DATE CREATED AUTHOR AUTHOR'S ORGANIZ ATION 10/02/2022 [facility] DATE CREATED AUTHOR AUTHOR'S ORGANIZ ATION 10/05/2022 [facility] DATE CREATED AUTHOR AUTHOR'S ORGANIZ ATION 11/05/2024 [facility] dical Specialists EPIC Care Teams (unrecognized sec tion and content) Team Status: Inactive Member Role Status Dates PARTH CartagenaC Attending Provider Active Command And Control Officer Relationship Specialty Start Date End Date Gustavo Bernardo DO [address] [place] [address] PCP - General Family Medicine 01/28/24 Command And Control Officer Relationship Specialty Start Date End Date Gustavo Bernardo DO [address] [place] [address] PCP - General Family Medicine 01/28/24 Command And Control Officer Relationship Specialty Start Date End Date Mateus Bernardoothy Gunner DO [address] [place] [address] PCP - General Family Medicine 01/28/24 Command And Control Officer Relationship Specialty Start Date End Date Gustavo Bernardo DO [address] [place] [address] PCP - General Family Medicine 01/28/24 Command And Control Officer Relationship Specialty Start Date End Date Nader Bryan MD [address] [place] [address] PCP - General Family Medicine 10/23/22 Command And Control Officer Relationship Specialty Start Date End Date Nader Bryan MD [address] [place] [address] PCP - General Family Medicine 10/23/22 Command And Control Officer Relationship Specialty Start Date End Date Gustavo Bernardo DO [address] [place] [address] PCP - General Family Medicine 01/28/24 Command And Control Officer Relationship Specialty Start Date End Date Gustavo Bernardo DO [address] [place] [address] PCP - General Family Medicine 01/28/24 Command And Control Officer Relationship Specialty Start Date End Date Gustavo Bernardo DO [address] [place] [address] PCP - General Family Medicine 01/28/24 Command And Control Officer Relationship Specialty Start Date End Date Gustavo Bernardo DO [address] [place] [address] PCP - General Family Medicine 01/28/24 Command And Control Officer Relationship Specialty Start Date End Date Gustavo Bernardo DO [address] [place] [address] PCP - General Family Medicine 01/28/24 Command And Control Officer Relationship Specialty Start Date End Date Gustavo Bernardo DO [address] [place] [address] PCP - General Family Medicine 01/28/24 Command And Control Officer Relationship Specialty Start Date End Date Gustavo Bernardo DO [address] [place] [address] PCP - General Family Medicine 01/28/24 Command And Control Officer Relationship Specialty Start Date End Date Gustavo Bernardo DO [address] [place] [address] PCP - General Family Medicine 01/28/24 Team Status: Active Member Role Status Santiago Bryan MD Primary Care Provider Active Team Status: Inactive Member Role Status Santiago Bryan MD Primary Care Provider Active Start: September 28, 2024 End: September 28, 2024 Malcom Rios MD Attending Provider Active S tart: September 28, 2024 End: September 28, 2024 Referral Self Referring Provider Active Start: Ravindra mckenzie 2024 End: September 28, 2024 Command And Control Officer Relationship Specialty Start Date End Date Gustavo Bernardo DO [address] [place] [address] PCP - General Family Medicine 01/28/24 Command And Control Officer Relationship Specialty Start Date End Date Gustavo Bernardo DO [address] [place] [address] PCP - General Family Medicine 01/28/24 Command And Control Officer Relationship Specialty Start Date End Date Gustavo Bernardo DO [address] [place] [address] PCP - General Family Medicine 11/01/24 Command And Control Officer Relationship Specialty Start Date End Date Gustavo Bernardo DO [address] [place] [address] PCP - General Family Medicine 11/01/24 Command And Control Officer Relationship Specialty Start Date End Date Gustavo Bernardo DO [address] [place] [address] PCP - General Family Medicine 01/28/24 Goals (unrecognized section and content) Goals may be documented in a n alternate sectionGoals may be documented in an alternate section Reason for Visit (unrecogniz ed section and content) Reason Comments Follow-up Reason Comments Follow-up Pt states she would like to discuss fibromyalgia. Pt states she has been experiencing exhaustion, can't sleep, can't stay asleep, body aches. Reason Comments Acne Reason Comments Med Refill Reason Comments IUD Check Reason Comments reflux Reason Comments Patient Update Patient Question Reason Comments Well Women Visit Source Comments (unrecognize d section and content) In the event this informatio n is protected by the Federal Confidentiality of Alcohol and Drug Abuse Patient Records regulations: The Federal rules restrict any use of the information to criminally investigate or prosecute any alcohol or drug abuse patient.[facility] the event this information is protected by the Federal Confidentiality of Alcohol and Drug Abuse Patient Records regulations: The Federal rules restrict any use of the information to criminally investigate or prosecute any alcohol or drug abuse patient.[facility] FOR RECORDS PERTAINING TO PATIENTS WHO ARE [...] BE BASED ON THE PRIMARY CLINICAL RECORDS. [facility]. provides no warranty or guarantee of the accuracy or completeness of information in this document.
[2024-12-05 12:13] LABS: Age Gdln ACOG Testing Note (.); HPV Aptima Negative (Negative); IGP, Aptima HPV, rfx 16/18,45 Note (.)
== END 2024-11-30 19:51 | disposition home or self-care (01) ==
LOC: LAB 19:50
PROVIDERS: PCP Family Medicine; Visit Provider Obstetrics & Gynecology
DX: Z01.419 Encounter for gynecological examination (general) (routine) without abnormal findings (principal)
CPT/HCPCS: 87624; 88175

== ENCOUNTER 2025-01-24 01:31 | Emergency (ER) | payer OTHER, SELFPAY ==
[2025-01-24 01:35] VITALS: BP 150/95; PULSE 85; TEMP 36.5; O2SAT 98; BMI 43.4
--- OUTSIDE RECORDS SUMMARY | 2025-01-24 01:36 | XMS_ITS | Encounter Summary ---
Author Organization [facility] Address [address] [place] [address] Care Team Providers Care Windows Server Specialist Name Role Phone Gustavo Bernardo DO Primary Care Provider [phone] Encounter Details Date Type Department Care Team (Late st Contact Info) Description 01/14/2025 Orders Only [facility] [place] [facility] [address] [place] [id number] Gustavo Bernardo DO [address] [place] [address] Social History Tobacco Use Types Packs/Day Years Used Date Smoking Tobacco: Former Cigarettes 1 15 0 08/23/2006 - 08/23/2021 Smokeless Tobacco: Never Comments:Nicotine Vape Alcohol Use Standard Drinks/Week Comments Yes 0 (1 standard drink = 0.6 oz pur e alcohol) occasional alcohol use B1300 Health Literacy Answer Date Recor ded How often do you need to hav e someone help you when you read instructions, pamphlets, or other written material from your doctor or pharmacy? Never 09/20/2024 Humiliation, Afraid, Rape, and Kick questionnair e Answer Date Recorded Within the last year, have y ou been afraid of your partner or ex-partner? No 09/20/2024 Within the last year, have y ou been humiliated or emotionally abused in other ways by your partner or ex-partner? No Within the last year, have y ou been kicked, hit, slapped, or otherwise physically hurt by your partner or ex-partner? No 09/20/2024 Within the last year, have y ou been raped or forced to have any kind of sexual activity by your partner or ex-partner? No 09/20/2024 Social Connection and Isolat ion Panel [NHANES] Answer Date Recorded In a typical week, how many times do you talk on the phone with family, friends, or neighbors? More than three times a week 09/20/2024 How often do you get togethe r with friends or relatives? Patient declined 09/20/2024 How often do you attend chur or worship services? Never 09/20/2024 Do you belong to any clubs o r organizations such as confucianism groups, unions, fraternal or athletic groups, or school groups? Yes 09/20/2024 How often do you attend meet ings of the clubs or organizations you belong to? 1 to 4 times per year 09/20/2024 Are you , , di vorced, , never , or living with a partner? Never 09/20/2024 AUDIT-C Answer Date Recorded Q1: How often do you have a drink containing alc ohol? Monthly or less 09/20/2024 Q2: How many drinks containi ng alcohol do you have on a typical day when you are drinking? 1 or 2 09/20/2024 Q3: How often do you have si x or more drinks on one occasion? Never 09/20/2024 Overall Financial Resource Strain (CARDIA) Answe r Date Recorded How hard is it for you to pa y for the very basics like food, housing, medical care, and heating? Somewhat hard 09/20/2024 PHQ-2 Answer Date Recorded Patient Health Questionnaire-2 Score 0 11/02/2024 [facility] - Occupational Stress Questionnaire Answer Date Recorded Do you feel stress - tense, restless, nervous, or anxious, or unable to sleep at night because your mind is troubled all the time - these days? Rather much 09/20/2024 Exercise Vital Sign Answer Date Recorde d On average, how many days pe r week do you engage in moderate to strenuous exercise (like a brisk walk)? 5 days 09/20/2024 On average, how many minutes do you engage in exercise at this level? 50 min 09/20/2024 Hunger Vital Sign Answer Date Recorded Within the past 12 months, y ou worried that your food would run out before you got the money to buy more. Never true 09/21/19 25 Within the past 12 months, t he food you bought just didn't last and you didn't have money to get more. Never true 09/20/2024 PRAPARE - Transportation Answer Date Re corded In the past 12 months, has l ack of transportation kept you from medical appointments or from getting medications? No 09/06 In the past 12 months, has l ack of transportation kept you from meetings, work, or from getting things needed for daily living? No 09/20/2024 Housing Stability Vital Sign Answer Scott e Recorded In the last 12 months, was t here a time when you were not able to pay the mortgage or rent on time? No 08/09/2023 In the last 12 months, how many places have you lived? 1 08/09/2023 In the last 12 months, was t here a time when you did not have a steady place to sleep or slept in a longterm (including now)? No 08/09/2023 Housing Stability Vital Sign Answer Scott e Recorded In the last 12 months, was t here a time when you were not able to pay the mortgage or rent on time? No 09/20/2024 In the past 12 months, how m any times have you moved where you were living? 0 09/20/2024 At any time in the past 12 m [facility], were you homeless or living in a longterm (including now)? No 09/20/2024 Comments No Sex and Gender Information Value Date Recorded Sex Assigned at Not on file Legal Sex Female 7:05 PM EDT Gender Identity Not on file Sexual Orientation Not on file documented as of this encounter Plan of Treatment Not on file documented as of this encounter Visit Diagnoses Not on filedocumented in this encounter Care Teams Windows Server Specialist Relationship Specialty Start Date End Date Gustavo Bernardo DO [address] [place] [address] PCP - General Family Medicine 01/28/24 documented as of this encounter
--- OUTSIDE RECORDS SUMMARY | 2025-01-24 01:36 | XMS_ITS | Encounter Summary ---
Author Organization [facility] Address [address] [place] [address] Care Team Providers Care Tip Tester Name Role Phone TovaGustavo Gunner PARISH Primary Care Provider [phone] Encounter Details Date Type Department Care Team (Late st Contact Info) Description 12/08/2024 Orders Only [facility] [address] [address] Heather Lynn MA Social History Tobacco Use Types Packs/Day Years [...] 09/20/2024 How often do you attend chur ch or church services? Never 09/20/2024 Do you belong to any clubs o r organizations such as restorationism groups, unions, fraternal or athletic groups, or [...] Recorded Patient Health Questionnaire-2 Score 0 11/02/2024 [facility] - Occupational Stress Questionnaire Answer Date [...] money to buy more. Never true 09/21/19 Within the past 12 months, t he [...] place to sleep or slept in a group home (including now)? No 08/09/2023 Housing Stability Vital Sign Answer Soctt e Recorded In the last 12 months, was t here a time when you were not able to pay the mortgage or rent on time? No 09/20/2024 In the past 12 months, how m any times have you moved where you were living? 0 09/20/2024 At any time in the past 12 m [facility], were you homeless or living in a group home (including now)? No 09/20/2024 Comments No Sex and Gender Information Value Date Recorded Sex Assigned at Not on file Legal Sex Female 7:05 PM EDT Gender Identity Not on file Sexual Orientation Not on file documented as of this encounter Plan of Treatment Not on file documented as of this encounter Procedures Procedure Name Priority Date/Time Associated Diagnosis Comments PAP SMEAR Routine 11/30/2024 12:00 AM EDT documented in this encounter Results * Pap Smear (11/30/2024 12:00 AM EDT) Swab Cervical swab / Unknown us Viktor Azam DO LAB CYTOLOGY ORDERABLES Final Re sult EXTERNAL LAB documented in this encounter Visit Diagnoses Not on filedocumented in this encounter Care Teams Tip Tester Relationship Specialty Start Date End Date Gustavo Bernardo DO [address] [place] [id number] PCP - General Family Medicine 01/28/24 documented as of this encounter
--- OUTSIDE RECORDS SUMMARY | 2025-01-24 01:36 | XMS_ITS | Encounter Summary ---
Author Organization [facility] Address [address] [place] [address] Care Team Providers Care Keymodule Assembly Machine Tender Name Role Phone Jesse Bryan MD Primary Care Provider [phone] Gustavo Bernardo DO Primary Care Provider [phone] Encounter Details Date Type Department Care Team (Late st Contact Info) Description 09/12/2023 Clinisync Result Encounter [facility] External Department Unsolicited Viktor Nascimento DO [address] [place] [address] Social History Tobacco Use Types Packs/Day Years Used Date Smoking Tobacco: Former Cigarettes 1 15 0 08/23/2006 - 08/23/2021 Smokeless Tobacco: Never Comments:Nicotine Vape Alcohol Use Standard Drinks/Week Comments Yes 0 (1 standard drink = 0.6 oz pur e alcohol) occasional alcohol use Social Connection and Isolat ion Panel [NHANES] Answer Date Recorded In a typical week, how many times do you talk on the phone with family, friends, or neighbors? More than three times a week 08/09/2023 How often do you get togethe r with friends or relatives? Once a week 08/09/2023 How often do you attend chur ch or religion services? Never 08/09/2023 Do you belong to any clubs o r organizations such as scientology groups, unions, fraternal or athletic groups, or school groups? Yes 08/09/2023 How often do you attend meet ings of the clubs or organizations you belong to? 1 to 4 times per year 08/09/2023 Are you , , di vorced, , never , or living with a partner? Never 08/09/2023 AUDIT-C Answer Date Recorded Q1: How often do you have a drink containing alc ohol? Monthly or less 08/09/2023 Q2: How many drinks containi ng alcohol do you have on a typical day when you are drinking? 1 or 2 08/09/2023 Q3: How often do you have si x or more drinks on one occasion? Never 08/09/2023 Overall Financial Resource Strain (CARDIA) Answe r Date Recorded How hard is it for you to pa y for the very basics like food, housing, medical care, and heating? Not very hard 08/09/2023 [facility] Occupat ional Health - Occupational Stress Questionnaire Answer Date Recorded Do you feel stress - tense, restless, nervous, or anxious, or unable to sleep at night because your mind is troubled all the time - these days? Rather much 08/09/2023 Exercise Vital Sign Answer Date Recorde d On average, how many days pe r week do you engage in moderate to strenuous exercise (like a brisk walk)? 4 days 08/09/2023 On average, how many minutes do you engage in exercise at this level? 20 min 08/09/2023 Hunger Vital Sign Answer Date Recorded Within the past 12 months, y ou worried that your food would run out before you got the money to buy more. Never true 08/09/19 24 Within the past 12 months, t he food you bought just didn't last and you didn't have money to get more. Never true 08/09/2023 PRAPARE - Transportation Answer Date Re corded In the past 12 months, has l ack of transportation kept you from medical appointments or from getting medications? No 08/2023 In the past 12 months, has l ack of transportation kept you from meetings, work, or from getting things needed for daily living? No 08/09/2023 Housing Stability Vital Sign Answer [...] place to sleep or slept in a snf (including now)? No 08/09/2023 Comments No Sex and Gender Information Value Date Recorded Sex Assigned at Not on file Legal Sex Female 7:05 PM EDT Gender Identity Not on file Sexual Orientation Not on file documented as of this encounter Plan of Treatment Not on file documented as of this encounter Procedures Procedure Name Priority Date/Time Associated Diagnosis Comments US PELVIS TRANSVAGINAL 09/12/2023 5:39 AM EDT documented in this encounter Results * US PELVIS TRANSVAGINAL (09/12/2023 5:39 AM EDT) Anatomical Region Laterality Modality Other 09/12/2023 5:39 AM EDT Narrative 09/12/2023 5:41 [place] [address] Ultrasound Report Signed Patient: RENETTA HOPE MR#: [id number] : 1990 Acct:[id number] Age/Sex: 32 / F ADM Date: 09/11/23 Loc: US Attending Dr: Viktor Nascimento D.O. Ordering Physician: Viktor Nascimento D.O. Date of Service: 09/11/23 Procedure(s): US pelvis transvaginal Accession Number(s): [id number] cc: Viktor Nascimento D.O.; Jesse Bryan M.D. [facility] [place] [id number] Patient Name: RENETTA HOPE MRN: [id number] date: 1990 Sex: F Assigned Patient Location: US Current Patient Location: Accession/Order Number: [id number] Exam Date: 09/11/2023 11:19 Report Date: 09/12/2023 05:39 At the request of: VIKTOR NASCIMENTO Procedure: US pelvis transvaginal EXAMINATION: US pelvis transvaginal HISTORY: bleeding after intercourse N93.0 COMPARISON: Ultrasound pelvis 02/27/2023 TECHNIQUE: Transabdominal and/or transvaginal sonographic examination was performed as indicated by examination type. FINDINGS: UTERUS: Normal size and appearance. Uterus size: 7.5 x 5.0 x 3.3 cm ENDOMETRIUM: Normal homogeneous appearance. Endometrial thickness: 8 mm RIGHT OVARY: Normal size and appearance. Duplex Doppler demonstrates normal waveform and flow; resistive index 0.5. Ovary size: 2.8 x 1.9 x 1.8 cm LEFT OVARY: Contains a 2.6 cm benign-appearing cyst. Duplex Doppler demonstrates normal waveform and flow; resistive index 0.5. Ovary size: 4.7 x 3.9 x 2.8 cm CUL-DE-SAC: Unremarkable. No significant free fluid. BLADDER: Unremarkable. OTHER: None. US/US pelvis transvaginal IMPRESSION: 1. Incidental benign-appearing left ovarian cyst. 2. No suspicious findings to account for patient's symptoms. Electronically authenticated by: CLEMENTE LI Date: 09/12/2023 05:39 Dictated By: Clemente Li M.D. Signed By: 09/12/23 0541 DD/ 0539 TD/TT: Prosecuting Attorney: Procedure Note Radiology, Radiologist, MD - 09/12/2023 [place] [address] Ultrasound Report Signed Patient: RENETTA HOPE MMR#: [id number] : 1990Acct:[id number] Age/Sex: 32 / FADM Date: 09/11/23 Loc: US Attending Dr: Viktor Nascimento D.O. Ordering Physician: Viktor Nascimento D.O. Date of Service: 09/11/23 Procedure(s): US pelvis transvaginal Accession Number(s): [id number] cc: Viktor Nascimento D.O.; Jesse Bryan M.D. [facility] [place] [id number] Patient Name: RENETTA HOPE MRN: [id number] date: 1990 Sex: F Assigned Patient Location: US Current Patient Location: Accession/Order Number: [id number] Exam Date: 09/11/2023 11:19 Report Date: 09/12/2023 05:39 At the request of: VIKTOR NASCIMENTO Procedure: US pelvis transvaginal EXAMINATION: US pelvis transvaginal HISTORY: bleeding after intercourse N93.0 COMPARISON: Ultrasound pelvis 02/27/2023 TECHNIQUE: Transabdominal and/or transvaginal sonographic examination was performed as indicated by examination type. FINDINGS: UTERUS: Normal size and appearance. Uterus size: 7.5 x 5.0 x 3.3 cm ENDOMETRIUM: Normal homogeneous appearance. Endometrial thickness: 8 mm RIGHT OVARY: Normal size and appearance. Duplex Doppler demonstratesnormal waveform and flow; resistive index 0.5. Ovary size: 2.8 x 1.9 x 1.8 cm LEFT OVARY: Contains a 2.6 cm benign-appearing cyst. Duplex Doppler demonstrates normal waveform and flow; resistive index 0.5. Ovary size:4.7 x 3.9 x 2.8 cm CUL-DE-SAC: Unremarkable. No significant free fluid. BLADDER: Unremarkable. OTHER: None. US/US pelvis transvaginal IMPRESSION: 1. Incidental benign-appearing left ovarian cyst. 2. No suspicious findings to account for patient's symptoms. Electronically authenticated by: CLEMENTE LI Date: 09/12/2023 05:39 Dictated By: Clemente Li M.D. Signed By:09/12/23 0541 DD/ 0539 TD/TT: Prosecuting Attorney: us Viktor Nascimento DO [facility] Final Result documented in this encounter Visit Diagnoses Not on filedocumented in this encounter Care Teams Keymodule Assembly Machine Tender Relationship Specialty Start Date End Date Jesse Bryan MD PCP - General Family Medicine 10/23/22 01/27/24 Gustavo Bernardo DO [address] [facility] [address] [place] [address] PCP - General Family Medicine 01/28/24 documented as of this encounter
--- OUTSIDE RECORDS SUMMARY | 2025-01-24 01:36 | XMS_ITS | Encounter Summary ---
Author Organization [facility] Address [address] [place] [address] Care Team Providers Care Russian Rubber Name Role Phone Gustavo Bernardo DO Primary Care Provider [phone] Reason for Visit * Reason Onset Date Comments Prior Authorization 01/19/2025 Encounter Details Date Type Department Care Team (Late st Contact Info) Description 01/19/2025 Telephone [facility] [place] [facility] [address] [place] [phone] Gustavo Bernardo DO [address] [place] [address] Prior Authorization Social History Tobacco Use Types Packs/Day Years [...] How often do you attend chur or caodaism services? Never 09/20/2024 Do you belong to any clubs o r organizations such as mu-ism groups, unions, fraSocialTagg or athletic groups, or school groups? Yes [...] Recorded Patient Health Questionnaire-2 Score 0 11/02/2024 [facility] Occupat ional Health - Occupational [...] place to sleep or slept in a penitentiary (including now)? No 08/09/2023 Housing Stability Vital Sign Answer Scott e Recorded In the last 12 months, was t here a time when you were not able to pay the mortgage or rent on time? No 09/20/2024 In the past 12 months, how m any times have you moved where you were living? 0 09/20/2024 At any time in the past [address] [facility], were you homeless or living in a penitentiary (including now)? No 09/20/2024 Comments No Sex and Gender Information Value Date Recorded Sex Assigned at Not on file Legal Sex Female 7:05 PM EDT Gender Identity Not on file Sexual Orientation Not on file documented as of this encounter Miscellaneous Notes * Telephone Encounter - Devorah Daily - 01/19/2025 10:08 AM EDT Prior auth dept ([facility] exchange) called to notify us that the aimovig was denied and that we will be receiving a letter regarding the denial. Case # [id number] documented in this encounter Plan of Treatment Not on file documented as of this encounter Visit Diagnoses Not on filedocumented in this encounter Care Teams Russian Rubber Relationship Specialty Start Date End Date Gustavo Bernardo DO [address] [address] PCP - General Family Medicine 01/28/24 documented as of this encounter
--- OUTSIDE RECORDS SUMMARY | 2025-01-24 01:36 | XMS_ITS | Encounter Summary ---
Author Organization [facility] Address [address] [place] [address] Care Team Providers Care Biofuels Product Development Manager Name Role Phone TovaGustavo Gunner PARISH Primary Care Provider [phone] Encounter Details Date Type Department Care Team (Late st Contact Info) Description 08/19/2024 Abstract [facility] [address] [place] [phone] Viktor Nascimento DO [address] [facility] [place] [address] Social History Tobacco Use Types Packs/Day Years [...] often do you attend chur ch or holiness services? Never 08/09/2023 Do you belong to any clubs o r organizations such as temple groups, unions, fraternal or athletic groups, or [...] care, and heating? Not very hard 08/09/2023 PHQ-2 Answer Date Recorded Patient Health Questionnaire-2 Score 0 08/01/2024 [facility] of Occupat ional Health - Occupational Stress [...] money to buy more. Never true 08/09/19 Within the past 12 months, t he [...] place to sleep or slept in a skilled nursing (including now)? No 08/09/2023 Comments No Sex and Gender Information Value Date Recorded Sex Assigned at Not on file Legal Sex Female 7:05 PM EDT Gender Identity Not on file Sexual Orientation Not on file documented as of this encounter Plan of Treatment Not on file documented as of this encounter Visit Diagnoses Not on filedocumented in this encounter Care Teams Biofuels Product Development Manager Relationship Specialty Start Date End Date Gustavo Bernardo DO [address] [place] [phone] PCP - General Family Medicine 01/28/24 documented as of this encounter
--- OUTSIDE RECORDS SUMMARY | 2025-01-24 01:36 | XMS_ITS | Clinical Summary ---
Author Organization [facility] Address [address] [place] [address] Care Team Providers Care Receiver/Laborer Name Role Phone Unavailable Primary Care Provider Unavailabl e Social History Tobacco Use Types Packs/Day Years Used Date Smoking Tobacco: Never Assessed [place] Safety & Environment Answer Date Rec orded Fear of Current or Ex-Partner Not on file Emotionally Abused Not on file 07/30/2023 Physically Abused Not on file 07/30/2023 Sexually Abused Not on file 07/30/2023 Physically or Sexually Abused Not on file Comments Unknown Sex and Gender Information Value Date Recorded Sex Assigned at Not on file Legal Sex Female 12:43 AM EDT Gender Identity Not on file Sexual Orientation Not on file Last Filed Vital Signs Vital Sign Reading Time Taken Comments Blood Pressure - - Pulse - - Temperature - - Respiratory Rate - - Oxygen Saturation - - Inhaled Oxygen Concentration - - Weight 93.4 kg (206 lb) 08/20/2021 2:36 PM EDT Height 160 cm (5' 3 ) 08/20/2021 2:36 PM EDT Body Mass Index 36.49 08/20/2021 2:36 PM EDT Plan of Treatment Not on file
--- OUTSIDE RECORDS SUMMARY | 2025-01-24 01:36 | XMS_ITS | Encounter Summary ---
Author Organization [facility] Address [address] [place] [address] Care Team Providers Care Loader Engineer Name Role Phone Gustavo Bernardo DO Primary Care Provider [phone] Encounter Details Date Type Department Care Team (Late st Contact Info) Description 01/11/2025 Abstract [facility] [facility] [address] [place] [phone] Gustavo Bernardo DO [address] [place] [address] Social History Tobacco Use Types Packs/Day Years [...] How often do you attend chur or baptism services? Never 09/20/2024 Do you belong to [...] Recorded Patient Health Questionnaire-2 Score 0 11/02/2024 [facility] of Occupat ional Health - Occupational [...] any time in the past 12 m [facility], were you homeless or living [...] on filedocumented in this encounter Care Teams Loader Engineer Relationship Specialty Start Date End Date Gustavo Bernardo DO [address] [place] [address] PCP - General Family Medicine 01/28/24 documented as of this encounter
--- OUTSIDE RECORDS SUMMARY | 2025-01-24 01:36 | XMS_ITS | CCD ---
Author Organization [facility] Care Team Providers Care Shuttle Filler Name Role Phone SANTO SANCHES Unavailable Unavailable Eduardo Escalona Unavailable Unavailable NONE, XXXX Unavailable Unavailable Huseyin, Catherine Unavailable Unavailable NONE, XXXX Unavailable Unavailable Kati, RIDDLER OPERATOR-C Nany Elizabeth Attending Provider [phone] CHRISTINE GRAVES Admitting Unavailable CHRISTINE GRAVES Attending [...] Admitting Unavailable Nader Bryan Primary Care Unavailable Gustavo Bernardo DO Primary Care Provider Nader Bryan MD Primary Care Provider [phone] Gustavo Bernardo DO Primary Care Provider [phone] GUSTAVO BERNARDO Attending Unavailable GUIMONIKA MALONE Attending Unavailable GUI MONIKA Referring Unavailable CUTLER, GUSTAVO L Attending Unavailable CUTLER, GUSTAVO L Attending Unavailable CUTLER, GUSTAVO L Attending Unavailable CUTLER, GUSTAVO L Attending Unavailable CUTLER, GUSTAVO L Attending Unavailable CUTLER, GUSTAVO L Attending Unavailable CUTLER, GUSTAVO L Referring Unavailable CUTLER, GUSTAVO L Attending Unavailable CUTLER, GUSTAVO L Attending Unavailable CRISTOPHER NASCIMENTO Attending Unavailable Medications Current Medications Medication Drug Class(es) Dates Sig (Normalized) Sig (Original) amitriptyline hydrochloride 50 mg oral tablet (20 sources) Tricyclic Antidepressant Start: 01-28-2024 End: 11-15-2024 take 1 tablet by mouth at bedtime [...] capsule 1 09/21/2024 Active Start: 08-10-2023 End: 09-21-2024 take 1 capsule by mouth once daily atomoxetine (Strattera) 10 MG capsule Indications: Attention deficit hyperactivity disorder (ADHD), predominantly inattentive type TAKE 1 CAPSULE (10 MG) BY MOUTH DAILY 90 capsule 1 05/30/2024 09/21/2024 Discontinued (Reorder) buPROPion hydrochloride 75 mg oral tablet (8 sources) Aminoketone Start: 11-02-2024 End: 11-02-2025 take [...] 14 capsule 10/05/2024 10/12/2024 Active 1 ml erenumab-aooe 70 mg/ml auto-injector (2 sources) Start: 12-26-2024 inject 1 mL by subcutaneous injection once erenumab (Aimovig) 70 MG/ML injection Indications: Chronic migraine without aura without status migrainosus, not intractable Inject 1 mL (70 mg) under the skin every 28 (twenty-eight) days 1 mL 2 12/26/2024 Active 24 hr etodolac 500 mg extended release oral tablet (3 sources) Nonsteroidal Anti-inflammatory Drug take 1 tablet by mouth twice daily etodolac (LODINE-XL) 500 mg 24 hr tablet Take 500 mg by mouth two times a day. Active 1 ml ixekizumab 80 mg/ml prefilled syringe (20 sources) Interleukin-17A Antagonist Start: 09-28-2024 Ixekizumab (Taltz Syringe) 80 mg/mL syringe Active 80 MG SUBCUT EVERY 2 WEEKS September 28, 2024 12:00am Start: 12-05-2022 Taltz 80 MG/ML injection 12/05/2022 Active levonorgestrel 0.899407 mg/hr intrauterine system (20 sources) Progestin, Progestin-containing [...] 04/19/2024 Active nabumetone 750 mg oral tablet (19 sources) Nonsteroidal Anti-inflammatory Drug Start: 08-24-2024 End: 11-30-2024 nabumetone (Relafen) 750 MG tablet 08/24/2024 Active naltrexone hydrochloride 50 mg oral tablet (8 sources) Opioid Antagonist Start: 11-02-2024 End: 11-02-2025 take 39-39.9 tablets by mouth once daily naltrexone (Depade) 50 MG tablet Indications: Class 2 obesity due to excess calories without serious comorbidity with body mass index (BMI) of 39.0 to 39.9 in adult Take 1 tablet (50 mg) by mouth Daily 30 tablet 11 11/02/2024 11/02/2025 Active naratriptan 2.5 mg oral tablet (20 sources) Serotonin-1b and Serotonin-1d Receptor Agonist Start: [...] is 5 mg per day. Active nystatin 448779 unt/ml topical cream (5 sources) Polyene Antifungal Start: 10-05-2024 End: 11-04-2024 nystatin (Mycostatin) cream Indications: Omphalitis in adult Apply topically in the morning and before bedtime. 45 g 10/05/2024 11/04/2024 Active pantoprazole 40 mg delayed release oral tablet (20 sources) Proton Pump Inhibitor Start: 08-10-2023 End: 09-21-2024 take 1 tablet by mouth in the morning pantoprazole (ProtoNix) 40 MG EC tablet Indications: Gastroesophageal reflux disease without esophagitis Take 1 tablet (40 mg) by mouth in the morning and 1 tablet (40 mg) before bedtime. Do not crush, chew, or split. 180 tablet 1 09/21/2024 Active rimegepant 75 mg disintegrating oral tablet (20 sources) Start: 12-12-2024 End: 01-14-2025 take 1 tablet by mouth every other day Rimegepant Sulfate (Nurtec) 75 MG tablet dispersible Indications: Chronic migraine without aura without status migrainosus, not intractable Take 75 mg by mouth every other day 16 tablet 2 12/12/2024 01/14/2025 Discontinued Start: 11-02-2024 End: 11-02-2024 take 1 tablet by mouth every other day Rimegepant Sulfate (Nurtec) 75 MG tablet dispersible Indications: Chronic migraine without aura without status migrainosus, not intractable Take 75 mg by mouth every other day 16 tablet 2 11/02/2024 Active Start: 08-01-2024 End: 11-02-2024 take 1 tablet by mouth once daily as needed Rimegepant Sulfate (Nurtec) 75 MG tablet dispersible Indications: Migraine without aura and without status migrainosus, not intractable Take 75 mg by mouth Daily as needed (at onset of migraine) 8 tablet 2 08/01/2024 11/02/2024 Discontinued spironolactone 50 mg oral tablet [...] bedtime. Active valACYclovir 1000 mg oral tablet (8 sources) Herpesvirus Nucleoside Analog DNA Polymerase Inhibitor, [...] Drug Class(es) Dates Sig (Normalized) Sig (Original) [id number] LUTHER PO (12 sources) End: 11-30-2024 NGBHPDJUM-NVZZ-FUAXY LARISSA PO Take by mouth 11/30/2024 Discontinued [id number]-NGLM-G ALERIAN PO Take by mouth Active 24 [...] (BMI) of 40.0 to 44.9 in adult ([facility]) Take 1 tablet (37.5 mg) by mouth in the morning. Take before meals. 30 tablet 08/01/2024 11/02/2024 Discontinued RHUBARB-ASHWAGANDH A-MAGNESIUM PO (12 sources) End: 11-30-2024 RHUBARB-ASHWAGANDHA -MAGNESIUM PO Take [...] 3 mL 12/31/2023 Active TURMERIC CURCUMIN PO (12 sources) End: 11-30-2024 TURMERIC CURCUMIN PO Take by mouth 11/30/2024 Discontinued TURMERIC CURCUMI N PO Take by mouth Active Problems Active Problems Problem Classification Problem Date Documented Date Episodic/Chronic Abdominal pain (4 sources) Tenderness of epigastrium; Translations: [Epigastric abdominal tenderness] 10-03-2024 Episodic Anxiety disorders (4 sources) Generalized anxiety disorder; Translations: [Generalized anxiety disorder] 09-28-2024 Chronic Attention-deficit, conduct, and disruptive behavior disorders (20 sources) Attention deficit hyperactivity disorder; Translations: [Attention-deficit hyperactivity disorder, unspecified type] Onset: 08-10-2023 08-10-2023 Chronic Attention-deficit, conduct, and disruptive behavior disorders (3 sources) Attention deficit hyperactivity disorder, predominantly inattentive type; [...] (BMI) of 40.0 to 44.9 in adult ([facility])] 05-25-2024 Chronic Other nutritional; endocrine; and metabolic [...] 10-25-2021 Episodic Other aftercare (1 source) Other mcfp (current) drug therapy; Translations: [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 [facility] Comment on above: TESTS RESULT FLAG UN ITS REF RANGE LAB Clinician Provided Cytology Information Source.............Cervix;Endocervix No. of containers..01 ThinPrep Vial Age Zion BROWN Esthela... 32 FLAG LEGEND: L-Low Normal,H-High Normal,LL-Alert Low,HH-Alert High <-Panic Low,>-Panic High,A-Abnormal,AA-Critical Abnormal Performed at: 01 =G [address] [place] [address] Juliet Tam MD, HPV APTIMA Negative Negative [facility] Comment on above: This nucleic acid am plification test detects fourteen high- risk HPV types (16,18,31,33,35,39,45,51,52,56,58,59,66,68) without differentiation. Performed at: =G - [facility] [id number] Loan Specialist: Juliet Tam MD, Phone: [phone] Performed at: - [address] [id number] Loan Specialist: Juliet Tam MD, Phone: [phone] IGP, APTIMA HPV, RFX 16/18,45 Note . [facility] Comment on above: TESTS RESULT FLAG UN ITS REF RANGE LAB DIAGNOSIS: 02 NEGATIVE FOR INTRAEPITHELIAL LESION OR MALIGNANCY. Specimen adequacy: 02 Satisfactory for evaluation. Endocervical and/or squamous metaplastic cells (endocervical component) are present. Performed by: Juanis Nicolas, Title Specialist ([facility]) . 02 Note: Note 02 The Pap smear is a screening test designed to aid in the detection of premalignant and malignant conditions of the uterine cervix. It is not a diagnostic procedure and should not be used as the sole means of detecting cervical cancer. Both false-positive and false-negative reports do occur. Test Methodology: Note 02 This liquid based ThinPrep(R) pap test was screened with the use of an image guided system. HPV Genotype Reflex Note 02 Criteria not met, HPV Genotype not performed. FLAG LEGEND: L-Low Normal,H-High Normal,LL-Alert Low,HH-Alert High <-Panic Low,>-Panic High,A-Abnormal,AA-Critical Abnormal Performed at: [address] [id number] Juliet Tam MD, BRUSH-SPATULA CERVIX ENDOCERVIX [facility] EGD Study observation Narrat iveon 11-30-2024 [facility] Radiology Study observation (narrative) [facility] Laboratory - Microbiology an d Antimicrobial susceptibilityon 09-23-2024 H. pylori Ag IA Ql (Stl) Negative Negative [facility] No Panel Informationon 09-23 Performed at: [address] [id number] Loan Specialist: Abimael Buck PhD, Phone: [phone] [facility] US PELVIS TRANSVAGINALon US PELVIS TRANSVAGINAL EXAM: [...] II, MD, PHD at 25-Aug-2024 08:47:08 AM [facility] Normal Not Available Comment on above: Order Comment: US PE LVIS TRANSVAGINAL No LMP recorded. Patient has had an implant. 235 lb CBC W Auto Differential pane l (Bld)on 04-23-2024 Basophils (Bld) [#/Vol] 0.1 10*3/uL [facility] Basophils/100 WBC (Bld) 1 % Not Estab. [facility] Eosinophils (Bld) [#/Vol] 0.2 10*3/uL [facility] Eosinophils/100 WBC (Bld) 2 % Not Estab. [facility] Erythrocyte distribution width (RBC) [Ratio] 14.6 % 11.7 - 15.4 % [facility] Hematocrit (Bld) [Volume fraction] 38.2 % 34.0 - 46.6 % [facility] Hemoglobin (Bld) [Mass/Vol] 11.9 g/dL 11.1 - 15.9 g/dL [facility] Immature granulocytes (Bld) [#/Vol] 0 10*3/uL [facility] Immature granulocytes/100 WBC (Bld) 0 % Not Estab. [facility] Lymphocytes (Bld) [#/Vol] 3.3 10*3/uL High [facility] Lymphocytes/100 WBC (Bld) 36 % Not Estab. [facility] MCH (RBC) [Entitic mass] 24.8 pg Low 26.6 - 33.0 pg [facility] MCHC (RBC) [Mass/Vol] 31.2 g/dL Low 31.5 - 35.7 g/dL [facility] MCV (RBC) [Entitic vol] 80 fL 79 - 97 fL [facility] Monocytes (Bld) [#/Vol] 0.6 10*3/uL [facility] Monocytes/100 WBC (Bld) 6 % Not Estab. [facility] Neutrophils (Bld) [#/Vol] 4.9 10*3/uL [facility] Neutrophils/100 WBC (Bld) 55 % Not Estab. [facility] Platelets (Bld) [#/Vol] 534 10*3/uL High [facility] RBC (Bld) [#/Vol] 4.79 10*6/uL [facility] WBC (Bld) [#/Vol] 9 10*3/uL [facility] Laboratory - Chemistry and C hemistry - challengeon 04-23-2024 Albumin [Mass/Vol] 4.3 g/dL 3.9 - 4.9 g/dL [facility] ALP [Catalytic activity/Vol] 90 U/L [facility] ALT [Catalytic activity/Vol] 29 U/L [facility] AST [Catalytic activity/Vol] 19 U/L [facility] Bilirubin [Mass/Vol] 0.2 mg/dL 0.0 - 1 .2 mg/dL [facility] Calcium [Mass/Vol] 9.4 mg/dL 8.7 - 10. 2 mg/dL [facility] Chloride [Moles/Vol] 105 mmol/L 96 - 10 6 mmol/L [facility] CO2 [Moles/Vol] 25 mmol/L 20 - 29 mmol/L [facility] Cortisol [Mass/Vol] 8.6 ug/dL 6.2 - 19 .4 ug/dL [facility] Comment on above: Please Note: The ref erence interval and flagging for this test is for an AM collection. If this is a PM collection please use: Cortisol PM: 2.3-11.9 Creatinine [Mass/Vol] 0.78 mg/dL 0.57 - 1.00 mg/dL [facility] GFR/1.73 sq M.predicted among non-blacks MDRD (S/P/Bld) [Vol rate/Area] 104 mL/min/{1.73_m2} 59 - PINF mL/min/1.73 [facility] Globulin (S) [Mass/Vol] 2.8 g/dL 1.5 - 4.5 g/dL [facility] Glucose [Mass/Vol] 94 mg/dL 70 - 99 mg/dL [facility] Potassium [Moles/Vol] 4.6 mmol/L 3.5 - 5.2 mmol/L [facility] Protein [Mass/Vol] 7.1 g/dL 6.0 - 8.5 g/dL [facility] Sodium [Moles/Vol] 141 mmol/L 134 - 144 mmol/L [facility] Urea nitrogen [Mass/Vol] 14 mg/dL 6 - 20 mg/dL [facility] Urea nitrogen/Creatinine [Mass ratio] 18 mg/mg 9 - 23 [facility] Laboratory - Hematology and Cell countson 04-23-2024 HbA1c (Bld) [Mass fraction] 6.1 % High 4.8 - 5.6 % [facility] Comment on above: Prediabetes: 5.7 - 6 .4 Diabetes: >6.4 Glycemic control for adults with diabetes: <7.0 Lipid 1996 panelon Cholesterol [Mass/Vol] 160 mg/dL 100 - 199 mg/dL [facility] Cholesterol in HDL [Mass/Vol] 44 mg/dL 39 - PINF mg/dL [facility] Cholesterol in LDL [Mass/Vol] 97 mg/dL 0 - 99 mg/dL [facility] Cholesterol in VLDL [Mass/Vol] 19 mg/dL 5 - 40 mg/dL [facility] Triglyceride [Mass/Vol] 103 mg/dL 0 - 149 mg/dL [facility] No Panel Informationon 04-23 Interpretation and review of laboratory results Abnormal [facility] Performed at: - [address] [id number] Loan Specialist: Abimael Buck PhD, Phone: [phone] [facility] Cytology Cervical or vaginal smear or scraping studyOrdered By: Sana Muñoz on 10-26-2023 [facility] Superficial Wound Cultureon 09-26-2022 Superficial Wound Culture MID POSTERIOR NECK ORGANISM: Staphylococcus aureus (O:STAAUR) Quantity of Growth Moderate Growth Aerobic GRANT Charge (PCMIC38) ---- SUSCEPTIBILITY --- ORGANISM: O:STAAUR ANTIBIOTIC INTERPRETATION GRANT Azithromycin S <2 Ceftaroline S <0.5 Ciprofloxacin S <1 Clindamycin S 0.5 Daptomycin S 1 Levofloxacin S <1 Linezolid S 2 Oxacillin S 0.5 Penicillin ALVERTO >2 Tetracycline S <4 Trimethoprim/Sulfamet hoxazole S <0.5 Vancomycin S 1 S = [...] RESISTANT TO ALL B-LACTAM DRUGS. PERFORMED BY: [place] [address] PATHOLOGIST TRAY DRIER MERISSA SINHA M.D. Normal [facility] Comment on above: Performed By: #### C USUP #### [address] GROUP A STREP CULTUREon S. pyogenes Ag Ql (Unsp spec) Culture Observations: NEGATIVE FOR GROUP A STREPTOCOCCUS. Normal [facility] Comment on above: Performed By: #### G RASTCX, SSCRN #### [facility] [address] [place] [address] Dr. Benson Logan STREPT SCREENon 01-09-2022 STREP SCREEN A Negative Normal NEGATIVE [facility] Comment on above: Performed By: #### G RASTCX, SSCRN #### [facility] [address] [place] [address] Dr. Benson Logan QUANTIFERON TB GOLD PLUSon 0 12-17-2021 QuantiFERON Criteria Comment Normal [facility] Comment on above: Result Comment: The QuantiFERON-TB Gold Plus result is determined by subtracting the Nil value from either TB antigen (Ag) tube. The mitogen tube serves as a control for the test. Performed By: #### Q NTTB #### [facility] [address] [place] [address] Dr. Benson Logan QuantiFERON Incubation Incubation performed. Normal [facility] Comment on above: Performed By: #### Q NTTB #### [facility] [address] [place] [address] Dr. Benson Logan QuantiFERON Mitogen Value >10.00 Normal [facility] Comment on above: Performed By: #### Q NTTB #### [facility] [address] [place] [address] Dr. Benson Logan QuantiFERON Nil Value 0.00 IU/mL Normal [facility] Comment on above: Performed By: #### Q NTTB #### [facility] [address] [place] [address] Dr. Benson Logan QuantiFERON TB1 Ag Value 0.00 IU/mL Normal [facility] Comment on above: Performed By: #### Q NTTB #### [facility] [address] [place] [address] Dr. Benson Logan QuantiFERON TB2 Ag Value 0.00 IU/mL Normal [facility] Comment on above: Performed By: #### Q NTTB #### [facility] [address] [place] [address] Dr. Benson Logan QuantiFERON-TB Gold Plus Negative Normal Negative [facility] Comment on above: Result Comment: Chem iluminescence immunoassay methodology Performed By: #### Q NTTB #### [facility] [address] [place] [address] Dr. Benson Logan CBC AUTO DIFFon 12-14-2021 BASO # 0.1 103/ul Normal 0.0-0.1 [facility] Comment on above: Performed By: #### C BC #### [facility] [address] [place] [address] Dr. Benson Logan Basophils/100 WBC (Bld) 0.9 % Normal 0.2-2.0 [facility] Comment on above: Performed By: #### C BC #### [facility] [address] [place] [address] Dr. Benson Logan EO # 0.3 103/ul Normal 0.0-0.7 [facility] Comment on above: Performed By: #### C BC #### [facility] [address] [place] [address] Dr. Benson Logan Eosinophils/100 WBC (Bld) 3.1 % Normal 0.9-7.0 [facility] Comment on above: Performed By: #### C BC #### [facility] [address] [place] [address] Dr. Benson Logan Erythrocyte distribution width (RBC) [Ratio] 17.2 % Critically high 11.0-15.0 [facility] Comment on above: Performed By: #### C BC #### [facility] [address] [place] [address] Dr. Benson Logan Hematocrit (Bld) [Volume fraction] 39.0 % Normal 36.0-48.0 [facility] Comment on above: Performed By: #### C BC #### [facility] [address] [place] [address] Dr. eBnson Logan Hemoglobin (Bld) [Mass/Vol] 12.3 g/dL Normal 12.0-16.0 [facility] Comment on above: Performed By: #### C BC #### [facility] [address] [place] [address] Dr. Benson Logan IG # 0.02 10e3/ul Normal 0.00-0.03 [facility] Comment on above: Performed By: #### C BC #### [facility] [address] [place] [address] Dr. Benson Logan IG % 0.3 % Normal 0.0-0.5 [facility] Comment on above: Performed By: #### C BC #### [facility] [address] [place] [address] Dr. Benson Logan LYMPH # 2.8 103/ul Normal 1.2-3.8 [facility] Comment on above: Performed By: #### C BC #### [facility] [address] [place] [address] Dr. Benson Logan Lymphocytes/100 WBC (Bld) 34.7 % Normal 20.5-60.0 [facility] Comment on above: Performed By: #### C BC #### [facility] [address] [place] [address] Dr. Benson Logan MANUAL DIFF REQ NO Normal [facility] Comment on above: Performed By: #### C BC #### [facility] [address] [place] [address] Dr. Benson Logan MCH (RBC) [Entitic mass] 26.1 pg Critically low 26.7-34.0 [facility] Comment on above: Performed By: #### C BC #### [facility] [address] [place] [address] Dr. Benson Logan MCHC (RBC) [Mass/Vol] 31.5 g/dL Normal 29.9-35.2 [facility] Comment on above: Performed By: #### C BC #### [facility] [address] [place] [address] Dr. Benson Logan MCV (RBC) [Entitic vol] 82.6 fL Normal 81.0-99.0 [facility] Comment on above: Performed By: #### C BC #### [facility] [address] [place] [address] Dr. Benson Logan MONO # 0.7 103/ul Normal 0.3-0.8 [facility] Comment on above: Performed By: #### C BC #### [facility] [address] [place] [address] Dr. Benson Logan Monocytes/100 WBC (Bld) 8.8 % Normal 1.7-12.0 [facility] Comment on above: Performed By: #### C BC #### [facility] [address] [address] [address] Benson Logan NEUT # 4.2 103/ul Normal 1.4-6.5 [facility] Comment on above: Performed By: #### C BC #### [facility] [address] [address] [address] Benson Logan Neutrophils/100 WBC (Bld) 52.2 % Normal 43.0-75.0 [facility] Comment on above: Performed By: #### C BC #### [facility] [address] [place] [address] Dr. Benson Logan Platelet mean volume (Bld) [Entitic vol] 8.6 fL Critically low 9.5-13.5 [facility] Comment on above: Performed By: #### C BC #### [facility] [address] [place] [address] Dr. Benson Logan PLT 390 103/ul Normal 150-450 [facility] Comment on above: Performed By: #### C BC #### [facility] [address] [place] [address] Dr. Benson Logan RBC 4.72 106/ul Normal 4.20-5.40 [facility] Comment on above: Performed By: #### C BC #### [facility] [address] [place] [address] Dr. Benson Logan WBC 8.0 103/ul Normal 4.0-11.0 [facility] Comment on above: Performed By: #### C BC #### [facility] [address] [place] [address] Dr. Benson Logan LIPID PROFILEon 12-14-2021 CHOL-HDL RATIO NORM SEE BELOW Normal [facility] Comment on above: Result Comment: 3.3 - 4.4 LOW RISK 4.4 - 7.1 AVERAGE RISK 7.1 - 11.0 MODERATE RISK >11.0 HIGH RISK Performed By: #### L IPID, CMP #### [facility] [address] [place] [address] Dr. Benson Logan Cholesterol [Mass/Vol] 150 mg/dL Normal <=200 [facility] Comment on above: Performed By: #### L IPID, CMP #### [facility] [address] [address] [address] Benson Logan Cholesterol in HDL [Mass/Vol] 50 mg/dL Normal 40-60 [facility] Comment on above: Performed By: #### L IPID, CMP #### [facility] [address] [address] [address] Benson Logan Cholesterol in LDL [Mass/Vol] 76.0 mg/dL Normal [facility] Comment on above: Performed By: #### L IPID, CMP #### [facility] [address] [place] [address] Dr. Benson Logan Cholesterol.total/Cho lesterol in HDL [Mass ratio] 3.0 {ratio} Normal [facility] Comment on above: Performed By: #### L IPID, CMP #### [facility] [address] [address] [address] Benson Logan HDL NORMAL > or = 60 mg/dl - LO W CARDIOVASCULAR RISK <40 mg/dl - HIGH CARDIOVASCULAR RISK Normal [facility] Comment on above: Performed By: #### L IPID, CMP #### [facility] [address] [place] [address] Dr. Benson Logan LDL CALC NORMAL SEE BELOW Normal [facility] Comment on above: Result Comment: <100 mg/dl OPTIMAL 100 - 129 mg/dl NEAR OR ABOVE OPTIMAL 130 - 159 mg/dl BORDERLINE HIGH 160 - 189 mg/dl HIGH >190 mg/dl VERY HIGH Performed By: #### L IPID, CMP #### [facility] [address] [address] [address] Benson Logan Triglyceride [Mass/Vol] 120 mg/dL Normal <=150 [facility] Comment on above: Performed By: #### L IPID, CMP #### [facility] [address] [address] [address] Benson Logan VLDL CALC 24.0 mg/dL Normal [facility] Comment on above: Performed By: #### L IPID, CMP #### [facility] [address] [address] [address] Benson Logan PROF 14(COMP METB)on 022 Albumin [Mass/Vol] 3.6 g/dL Normal 3.4-5.0 [facility] Comment on above: Performed By: #### L IPID, CMP #### [facility] [address] [address] [address] Benson Logan Albumin/Globulin [Mass ratio] 1.0 {ratio} [facility] [place] Comment on above: Performed By: #### L IPID, CMP #### [facility] [address] [address] [address] Benson Logan ALP [Catalytic activity/Vol] 76 U/L Normal 46-116 [facility] [place] Comment on above: Performed By: #### L IPID, CMP #### [facility] [address] [address] [address] Benson Logan ALT [Catalytic activity/Vol] 48 U/L Normal 14-59 [facility] [place] Comment on above: Performed By: #### L IPID, CMP #### [facility] [address] [address] [address] Benson Logan Anion gap [Moles/Vol] 10.7 mmol/L Normal [facility] Comment on above: Performed By: #### L IPID, CMP #### [facility] [address] [address] [address] Benson Logan AST [Catalytic activity/Vol] 24 U/L Normal 15-37 [facility] [place] Comment on above: Performed By: #### L IPID, CMP #### [facility] [address] [address] [address] Benson Logan Bilirubin [Mass/Vol] 0.4 mg/dL Normal 0.2-1.0 [facility] [place] Comment on above: Performed By: #### L IPID, CMP #### [facility] [address] [address] [address] Benson Logan Calcium [Mass/Vol] 8.8 mg/dL Normal 8.5-10.1 [facility] Comment on above: Performed By: #### L IPID, CMP #### [facility] [address] [address] [address] Benson Logan Chloride [Moles/Vol] 105 mmol/L Normal 98-107 [facility] [place] Comment on above: Performed By: #### L IPID, CMP #### [facility] [address] [address] [address] Benson Logan CO2 [Moles/Vol] 27.3 mmol/L Normal 21.0-32.0 [facility] Comment on above: Performed By: #### L IPID, CMP #### [facility] [address] [address] [address] Benson Logan Creatinine [Mass/Vol] 0.83 mg/dL Normal 0.55-1.02 [facility] [place] Comment on above: Performed By: #### L IPID, CMP #### [facility] [address] [place] [address] Dr. Benson Logan EGFR-AF BULGARIAN >60 Normal >=60 [facility] Comment on above: Performed By: #### L IPID, CMP #### [facility] [address] [place] [address] Dr. Benson Logan EGFR-NON AF BULGARIAN >60 Normal >=60 [facility] [place] Comment on above: Performed By: #### L IPID, CMP #### [facility] [address] [address] [address] Benson Logan Globulin (S) [Mass/Vol] 3.5 g/dL Normal [facility] Comment on above: Performed By: #### L IPID, CMP #### [facility] [address] [address] [address] Benson Logan Glucose [Mass/Vol] 94 mg/dL Normal 74-106 [facility] Comment on above: Performed By: #### L IPID, CMP #### [facility] [address] [place] [address] Dr. Benson Logan Potassium [Moles/Vol] 4.0 mmol/L Normal 3.5-5.1 [facility] [place] Comment on above: Performed By: #### L IPID, CMP #### [facility] [address] [address] [address] Benson Logan Protein [Mass/Vol] 7.1 g/dL Normal 6.4-8.2 [facility] Comment on above: Performed By: #### L IPID, CMP #### [facility] [address] [address] [address] Benson Logan Sodium [Moles/Vol] 139 mmol/L Normal 136-145 [facility] Comment on above: Performed By: #### L IPID, CMP #### [facility] [address] [address] [address] Benson Logan Urea nitrogen [Mass/Vol] 10.0 mg/dL Normal 7.0-18.0 [facility] [place] Comment on above: Performed By: #### L IPID, CMP #### [facility] [address] [place] [address] Dr. Benson Logan Urea nitrogen/Creatinine [Mass ratio] 12.0 mg/mg [facility] Comment on above: Performed By: #### L IPID, CMP #### [facility] [address] [place] [address] Dr. Benson Logan PAP ACOG PANEL 2: 21 to 29on 10-28-2021 . . [facility] Comment on above: Performed By: #### [id number] #### [facility] [address] [place] [address] Dr. Benson Logan Age Gdln ACOG Testing - [facility] Comment on above: Performed By: #### [id number] #### [facility] [address] [place] [address] Dr. Benson Logan DIAGNOSIS: Comment [facility] Comment on above: Result Comment: NEGA TIVE FOR INTRAEPITHELIAL LESION OR MALIGNANCY. Performed By: #### [id number] #### [facility] [address] [place] [address] Dr. Benson Logan Methodology: Comment [facility] Comment on above: Result Comment: This liquid based ThinPrep(R) pap test was screened with the use of an image guided system. Performed By: #### [id number] #### [facility] [address] [place] [address] Dr. Benson Logan Note: Comment Normal [facility] [place] Comment on above: Result Comment: The Pap smear is a screening test designed to aid in the detection of premalignant and malignant conditions of the uterine cervix. It is not a diagnostic procedure and should not be used as the sole means of detecting cervical cancer. Both false-positive and false-negative reports do occur. . Performed By: #### [id number] #### [facility] [address] [place] [address] Dr. Benson Logan Performed by: Comment Normal [facility] Comment on above: Result Comment: Kiki Bond, Glass Pulverizer Equipment Operator (ASCP) Performed By: #### [id number] #### [facility] [address] [place] [address] Dr. Benson Logan Reflex Criteria: Comment Normal [facility] Comment on above: Result Comment: The HPV DNA reflex criteria were not met with this specimen result therefore, no HPV testing was performed. . Performed By: #### [id number] #### [facility] [address] [place] [address] Dr. Benson Logan Specimen adequacy: Comment Normal [facility] Comment on above: Result Comment: Sati sfactory for evaluation. Endocervical and/or squamous metaplastic cells (endocervical component) are present. Performed By: #### [id number] #### [facility] [address] [place] [address] Dr. Benson Garner 08-03-2017 CNPN Telephone (HEMAMN) ----RENETTA HOPE ([id number]) 1990 F BMDDate Time Provider Department08/03/17 RAMONA DAVIS (RN) HEMAMN During your visit today, we recorded the following information about you:Ramona Davis RN, RN 08/03/2017 11:25 AM SignedLeft message with instructions to call this RN back to discuss tissue typingresults.Lisette Barker RN, RN 08/03/2017 4:05 PM Anoop Hope was notified she is not an HLA match to potential HPC recipient,Loki Hope. Renetta Hope gave verbal consent to disclose HLA test results toLoki Hope.Renetta Hope was encouraged to call with any further questions or concerns andverbalized understanding.Flakito Barker As of Date: 08/03/2017(Not on File)Date Reviewed: Never ReviewedReason for Visit: Tissue Typing/HLA [1543]Problem List As Of Date: 08/03/2017(None)Encou nter Number: [id number] Status:Closed by RAMONA DAVIS on 08/03/17 Normal [facility] Vital Signs Date Time Vital Sign Value Performing Clinician Facility 11-30-2024 15:08-0400 Body mass index (BMI) [Ratio] 39.56 kg/m2 [employer] Work Phone: [facility] 11-30-2024 15:08-0400 Body weight 111.19 kg Joystickers DO Work Phone: [facility] 11-30-2024 15:08-0400 Diastolic blood pressure 84 mm[Hg] Cristopher Azam DO Work Phone: [facility] 11-30-2024 15:08-0400 Systolic blood pressure 130 mm[Hg] Cristopher Azam DO Work Phone: [facility] 11-30-2024 09:22-0400 Diastolic blood pressure 64 mm[Hg] Esther Holden MD Work Phone: [facility] 11-30-2024 09:22-0400 Heart rate 81 /min Esther Holden MD Work Phone: [facility] 11-30-2024 09:22-0400 Respiratory rate 16 /min Esther Holden MD Work Phone: [facility] 11-30-2024 09:22-0400 SaO2% (BldA) [Mass fraction] 96 % Esther Holden MD Work Phone: [facility] 11-30-2024 09:22-0400 Systolic blood pressure 109 mm[Hg] Esther Holden MD Work Phone: [facility] 11-30-2024 08:22-0400 Body height 160 cm Esther Holden MD Work Phone: [facility] 11-30-2024 08:22-0400 Body mass index (BMI) [Ratio] 43.4 kg/m2 Esther Holden MD Work Phone: [facility] 11-30-2024 08:22-0400 Body temperature 97.9 [degF] Esther Holden MD Work Phone: [facility] 11-30-2024 08:22-0400 Body weight 111.13 kg Esther Holden MD Work Phone: [facility] 11-02-2024 13:05-0400 Body height 167.6 cm Gustavo Buena Vista DO Work Phone: [facility] 11-02-2024 13:05-0400 Body mass index (BMI) [Ratio] 39.87 kg/m2 Gustavo Buena Vista DO Work Phone: [facility] 11-02-2024 13:05-0400 Body temperature 97.39 [degF] Gustavo Buena Vista DO Work Phone: [facility] 11-02-2024 13:05-0400 Body weight 112.04 kg Gustavo Buena Vista DO Work Phone: [facility] 11-02-2024 13:05-0400 Diastolic blood pressure 76 mm[Hg] Gustavo Buena Vista DO Work Phone: [facility] 11-02-2024 13:05-0400 Heart rate 106 /min Gustavo Buena Vista DO Work Phone: [facility] 11-02-2024 13:05-0400 SaO2% (BldA) [Mass fraction] 97 % Gustavo Buena Vista DO Work Phone: [facility] 11-02-2024 13:05-0400 Systolic blood pressure 126 mm[Hg] Gustavo Buena Vista DO Work Phone: [facility] 11-01-2024 15:12-0400 Body height 160 cm Esther Holden MD Work Phone: [facility] 11-01-2024 15:12-0400 Body mass index (BMI) [Ratio] 44.11 kg/m2 Esther Holden MD Work Phone: [facility] 11-01-2024 15:12-0400 Body temperature 98.71 [degF] Esther Holden MD Work Phone: [facility] 11-01-2024 15:12-0400 Body weight 112.95 kg Esther Holden MD Work Phone: [facility] 11-01-2024 15:12-0400 Diastolic blood pressure 90 mm[Hg] Esther Holden MD Work Phone: [facility] 11-01-2024 15:12-0400 Heart rate 91 /min Esther Holden MD Work Phone: [facility] 11-01-2024 15:12-0400 Systolic blood pressure 129 mm[Hg] Esther Holden MD Work Phone: [facility] 10-05-2024 16:26-0400 Body height 167.6 cm Gustavo Buena Vista DO Work Phone: [facility] 10-05-2024 16:26-0400 Body mass index (BMI) [Ratio] 37.93 kg/m2 Gustavo Buena Vista DO Work Phone: [facility] 10-05-2024 16:26-0400 Body temperature 99.19 [degF] Gustavo Buena Vista DO Work Phone: [facility] 10-05-2024 16:26-0400 Body weight 106.59 kg Gustavo Buena Vista DO Work Phone: [facility] 10-05-2024 16:26-0400 Diastolic blood pressure 76 mm[Hg] Gustavo Buena Vista DO Work Phone: [facility] 10-05-2024 16:26-0400 Heart rate 94 /min Gustavo Buena Vista DO Work Phone: [facility] 10-05-2024 16:26-0400 SaO2% (BldA) [Mass fraction] 99 % Gustavo Buena Vista DO Work Phone: [facility] 10-05-2024 16:26-0400 Systolic blood pressure 128 mm[Hg] Gustavo Buena Vista DO Work Phone: [facility] 09-28-2024 16:14-0400 Body height 160.02 cm [facility] 09-28-2024 16:14-0400 Body mass index (BMI) [Ratio] 41.3 kg/m2 [facility] 09-28-2024 16:14-0400 Body weight 105.68 kg [facility] 09-28-2024 16:14-0400 Diastolic blood pressure 101 mm[Hg] [facility] 09-28-2024 16:14-0400 Heart rate 96 /min [facility] 09-28-2024 16:14-0400 SaO2% (BldA) [Mass fraction] 98 % [facility] 09-28-2024 16:14-0400 Systolic blood pressure 146 mm[Hg] [facility] 09-21-2024 11:40-0400 Body height 167.6 cm Gustavo Buena Vista DO Work Phone: [facility] 09-21-2024 11:40-0400 Body mass index (BMI) [Ratio] 39.06 kg/m2 Gustavo Buena Vista DO Work Phone: [facility] 09-21-2024 11:40-0400 Body temperature 97.2 [degF] Gustavo Buena Vista DO Work Phone: [facility] 09-21-2024 11:40-0400 Body weight 109.77 kg Gustavo Buena Vista DO Work Phone: [facility] 09-21-2024 11:40-0400 Diastolic blood pressure 82 mm[Hg] Gustavo Buena Vista DO Work Phone: [facility] 09-21-2024 11:40-0400 Heart rate 108 /min Gustavo Buena Vista DO Work Phone: [facility] 09-21-2024 11:40-0400 SaO2% (BldA) [Mass fraction] 98 % Gustavo Buena Vista DO Work Phone: [facility] 09-21-2024 11:40-0400 Systolic blood pressure 134 mm[Hg] Gustavo Buena Vista DO Work Phone: [facility] 08-01-2024 14:18-0500 Body mass index (BMI) [Ratio] 41.63 kg/m2 Monika RANDHAWA Work Phone: [facility] 08-01-2024 14:18-0500 Body weight 106.59 kg Monika RANDHAWA Work Phone: [facility] 08-01-2024 14:18-0500 Diastolic blood pressure 100 mm[Hg] Monika RANDHAWA Work Phone: [facility] 08-01-2024 14:18-0500 Systolic blood pressure 140 mm[Hg] Monika RANDHAWA Work Phone: [facility] 08-01-2024 11:48-0500 Body height 160 cm Gustavo Buena Vista DO Work Phone: [facility] 08-01-2024 11:48-0500 Body mass index (BMI) [Ratio] 39.86 kg/m2 Gustavo Buena Vista DO Work Phone: [facility] 08-01-2024 11:48-0500 Body temperature 98.6 [degF] Gustavo Buena Vista DO Work Phone: [facility] 08-01-2024 11:48-0500 Body weight 102.06 kg Gustavo Buena Vista DO Work Phone: [facility] 08-01-2024 11:48-0500 Diastolic blood pressure 82 mm[Hg] Gustavo Buena Vista DO Work Phone: [facility] 08-01-2024 11:48-0500 Heart rate 100 /min Gustavo Buena Vista DO Work Phone: [facility] 08-01-2024 11:48-0500 SaO2% (BldA) [Mass fraction] 98 % Gustavo Buena Vista DO Work Phone: [facility] 08-01-2024 11:48-0500 Systolic blood pressure 130 mm[Hg] Gustavo Buena Vista DO Work Phone: [facility] 06-24-2024 11:23-0500 Body height 160 cm Gustavo Buena Vista DO Work Phone: [facility] 06-24-2024 11:23-0500 Body mass index (BMI) [Ratio] 40.21 kg/m2 Gustavo Buena Vista DO Work Phone: [facility] 06-24-2024 11:23-0500 Body temperature 97.3 [degF] Gustavo Buena Vista DO Work Phone: [facility] 06-24-2024 11:23-0500 Body weight 102.97 kg Gustavo Buena Vista DO Work Phone: [facility] 06-24-2024 11:23-0500 Diastolic blood pressure 88 mm[Hg] Gustavo Buena Vista DO Work Phone: [facility] 06-24-2024 11:23-0500 Heart rate 109 /min Gustavo Buena Vista DO Work Phone: [facility] 06-24-2024 11:23-0500 SaO2% (BldA) [Mass fraction] 99 % Gustavo Buena Vista DO Work Phone: [facility] 06-24-2024 11:23-0500 Systolic blood pressure 136 mm[Hg] Gustavo Buena Vista DO Work Phone: [facility] 05-25-2024 16:11-0500 Body height 160 cm Gustavo Buena Vista DO Work Phone: [facility] 05-25-2024 16:11-0500 Body mass index (BMI) [Ratio] 41.24 kg/m2 Gustavo Buena Vista DO Work Phone: [facility] 05-25-2024 16:11-0500 Body temperature 97.59 [degF] Gustavo Buena Vista DO Work Phone: [facility] 05-25-2024 16:11-0500 Body weight 105.6 kg Gustavo Buena Vista DO Work Phone: [facility] 05-25-2024 16:11-0500 Diastolic blood pressure 74 mm[Hg] Gustavo Buena Vista DO Work Phone: [facility] 05-25-2024 16:11-0500 Heart rate 104 /min Gustavo Buena Vista DO Work Phone: [facility] 05-25-2024 16:11-0500 SaO2% (BldA) [Mass fraction] 99 % Gustavo Buena Vista DO Work Phone: [facility] 05-25-2024 16:11-0500 Systolic blood pressure 138 mm[Hg] Gustavo Buena Vista DO Work Phone: [facility] 04-28-2024 10:07-0500 Body height 160 cm Gustavo Buena Vista DO Work Phone: [phone] [place] [address] 04-28-2024 10:07-0500 Body mass index (BMI) [Ratio] 42.12 kg/m2 Gustavo Buena Vista DO Work Phone: [facility] 04-28-2024 10:07-0500 Body temperature 97.5 [degF] Gustavo Buena Vista DO Work Phone: [facility] 04-28-2024 10:07-0500 Body weight 107.86 kg Gustavo Buena Vista DO Work Phone: [facility] 04-28-2024 10:07-0500 Diastolic blood pressure 86 mm[Hg] Gustavo Buena Vista DO Work Phone: [facility] 04-28-2024 10:07-0500 Heart rate 100 /min Gustavo Buena Vista DO Work Phone: [facility] 04-28-2024 10:07-0500 SaO2% (BldA) [Mass fraction] 97 % Gustavo Buena Vista DO Work Phone: [facility] 04-28-2024 10:07-0500 Systolic blood pressure 132 mm[Hg] Gustavo Buena Vista DO Work Phone: [facility] 04-19-2024 09:04-0500 Body height 160 cm Gustavo Buena Vista DO Work Phone: [facility] 04-19-2024 09:04-0500 Body mass index (BMI) [Ratio] 41.88 kg/m2 Gustavo Buena Vista DO Work Phone: [facility] 04-19-2024 09:04-0500 Body temperature 97.2 [degF] Gustavo Buena Vista DO Work Phone: [facility] 04-19-2024 09:04-0500 Body weight 107.23 kg Gustavo Buena Vista DO Work Phone: [facility] 04-19-2024 09:04-0500 Diastolic blood pressure 86 mm[Hg] Gustavo Buena Vista DO Work Phone: [facility] 04-19-2024 09:04-0500 Heart rate 94 /min Gustavo Buena Vista DO Work Phone: [facility] 04-19-2024 09:04-0500 SaO2% (BldA) [Mass fraction] 99 % Gustavo Buena Vista DO Work Phone: [facility] 04-19-2024 09:04-0500 Systolic blood pressure 122 mm[Hg] Gustavo Buena Vista DO Work Phone: [facility] 01-28-2024 16:20-0400 Body height 160 cm Gustavo Buena Vista DO Work Phone: [facility] 01-28-2024 16:20-0400 Body mass index (BMI) [Ratio] 40.64 kg/m2 Gustavo Buena Vista DO Work Phone: [facility] 01-28-2024 16:20-0400 Body temperature 97.5 [degF] Gustavo Buena Vista DO Work Phone: [facility] 01-28-2024 16:20-0400 Body weight 104.06 kg Gustavo Buena Vista DO Work Phone: [facility] 01-28-2024 16:20-0400 Diastolic blood pressure 80 mm[Hg] Gustavo Buena Vista DO Work Phone: [facility] 01-28-2024 16:20-0400 Heart rate 92 /min Gustavo Buena Vista DO Work Phone: [facility] 01-28-2024 16:20-0400 SaO2% (BldA) [Mass fraction] 98 % Gustavo Buena Vista DO Work Phone: [facility] 01-28-2024 16:20-0400 Systolic blood pressure 122 mm[Hg] Gustavo Buena Vista DO Work Phone: [facility] Encounters Encounter Date Encounter Type Care Provider Facility Start: 01-19-2025 End: 01-19-2025 Telephone encounter Gustavo Martino [place] DO Work Phone: [facility] 230 Comment on above: Prior Authorization Start: 01-14-2025 End: 01-14-2025 Telephone encounter Gustavo Martino [place] DO Work Phone: [facility] Start: 12-08-2024 End: 12-08-2024 Follow-up encounter Esther Holden MD Work Phone: [facility] Start: 11-30-2024 End: 11-30-2024 Patient encounter procedure Cristopher Azam DO Work Phone: [facility] Work Phone: Start: 11-30-2024 End: 11-30-2024 Periodic preventive med est patient 18-39 yrs Cristopher Azam DO Work Phone: [facility] Comment on above: Well woman exam with routine gynecological exam Start: 11-30-2024 End: 11-30-2024 Bamboo flowsheet Cristopher Azam DO Work Phone: [facility] Start: 11-30-2024 End: 12-05-2024 Bamboo flowsheet Cristopher Azam DO Work Phone: [facility] Start: 11-30-2024 End: 12-05-2024 Clinisync Result Encounter Cristophersamina Tysono DO Work Phone: [facility] External Department Unsolicited Start: 11-30-2024 End: 11-30-2024 Orders Only Esther Holden MD Work Phone: [facility] [place] Comment on above: Gastroesophageal ref lux disease with esophagitis without hemorrhage (Primary Dx) Gastroesophageal ref lux disease, unspecified whether esophagitis present [K21.9] Start: 11-23-2024 End: 11-23-2024 Telephone encounter Esther Holden [facility] Comment on above: Patient Update; Kasey ent Question Start: 11-02-2024 End: 11-02-2024 Bamboo flowsheet Gustavo L [place] DO Work Phone: [facility] Start: 11-02-2024 End: 11-02-2024 Bamboo flowsheet Gustavo L [place] DO Work Phone: [facility] Start: 11-02-2024 End: 11-02-2024 ambulatory GUSTAVO L CUTLER Not Available Start: 11-02-2024 End: 11-02-2024 Office outpatient visit 25 minutes Gustavo L [place] DO Work Phone: [facility] Comment on above: Class 2 obesity due to excess calories without serious comorbidity with body mass index (BMI) of 39.0 to 39.9 in adult (Primary Dx); Acne, unspecified acne type; Chronic migraine without aura without status migrainosus, not intractable ([facility]) Start: 11-01-2024 End: 11-01-2024 Patient encounter procedure Esther Holden MD Work Phone: [facility] [place] Comment on above: Gastroesophageal ref lux disease, unspecified whether esophagitis present (Primary Dx) Start: 10-05-2024 End: 10-05-2024 Office outpatient visit 15 minutes Gustavo L [place] DO Work Phone: [facility] Comment on above: Omphalitis in adult (Primary Dx) Start: 10-05-2024 End: 10-05-2024 ambulatory GUSTAVO L CUTLER Not Available Start: 10-05-2024 End: 10-05-2024 Bamboo flowsheet Gustavo L [place] DO Work Phone: [facility] Start: 10-05-2024 End: 10-05-2024 Bamboo flowsheet Gustavo L [place] DO Work Phone: [facility] Start: 09-28-2024 End: 09-28-2024 ambulatory [facility] Work Phone: Start: 09-28-2024 End: 09-28-2024 Patient encounter procedure [facility] Work Phone: Start: 09-21-2024 End: 09-21-2024 Bamboo flowsheet Gustavo L [place] DO Work Phone: [facility] Start: 09-21-2024 End: 09-21-2024 Bamboo flowsheet Gustavo L [place] DO Work Phone: [facility] Start: 09-21-2024 End: 09-21-2024 Telephone encounter Gustavo L [place] DO Work Phone: [facility] Start: 09-21-2024 End: 09-21-2024 ambulatory GUSTAVO L CUTLER Not Available Start: 09-21-2024 End: 09-21-2024 Office outpatient visit 25 minutes Gustavo L [place] DO Work Phone: [facility] Comment on above: Epigastric abdominal tenderness without rebound tenderness (Primary Dx); Gastroesophageal reflux disease without esophagitis; Attention deficit hyperactivity disorder (ADHD), predominantly inattentive type Start: 08-24-2024 End: 08-24-2024 ambulatory MONIKA MESSER Not Available Start: 08-01-2024 End: 08-01-2024 Bamboo flowsheet Gustavo L [place] DO Work Phone: [facility] Start: 08-01-2024 End: 08-01-2024 Bamboo flowsheet Gustavo L [place] DO Work Phone: [facility] Start: 08-01-2024 End: 08-01-2024 Office outpatient visit 15 minutes Monika Messer PA Work Phone: [facility] Comment on above: IUD check up Start: 08-01-2024 End: 08-01-2024 ambulatory MONIKA MESSER Not Available Start: 08-01-2024 End: 08-01-2024 ambulatory GUSTAVO L CUTLER Not Available Start: 08-01-2024 End: 08-01-2024 Office outpatient visit 25 minutes Gustavo L [place] DO Work Phone: [facility] Comment on above: Migraine without aur a and without status migrainosus, not intractable ([facility]) (Primary Dx); Class 3 severe obesity due to excess calories without serious comorbidity with body mass index (BMI) of 40.0 to 44.9 in adult ([facility]) Start: 06-24-2024 End: 06-24-2024 Bamboo flowsheet Gustavo L [place] DO Work Phone: [facility] Start: 06-24-2024 End: 06-24-2024 Bamboo flowsheet Gustavo L [place] DO Work Phone: [facility] Start: 06-24-2024 End: 06-24-2024 ambulatory GUSTAVO L CUTLER Not Available Start: 06-24-2024 End: 06-24-2024 Office outpatient visit 15 minutes Gustavo L Buena Vista DO Work Phone: [facility] Comment on above: Class 3 severe obesi ty due to excess calories without serious comorbidity with body mass index (BMI) of 40.0 to 44.9 in adult ([facility]) Start: 05-30-2024 End: 05-30-2024 Refill Gustavo L Buena Vista DO Work Phone: [facility] Comment on above: Gastroesophageal ref lux disease without esophagitis Attention deficit hy peractivity disorder (ADHD), predominantly inattentive type ([facility]) Start: 05-25-2024 End: 05-25-2024 Office outpatient visit 15 minutes Gustavo L Buena Vista DO Work Phone: [facility] 230 Comment on above: Acne, unspecified ac ne type (Primary Dx); Class 3 severe obesity due to excess calories without serious comorbidity with body mass index (BMI) of 40.0 to 44.9 in adult ([facility]) Start: 05-25-2024 End: 05-25-2024 ambulatory GUSTAVO L CUTLER Not Available Start: 05-25-2024 End: 05-25-2024 Bamboo flowsheet Gustavo L Buena Vista DO Work Phone: [facility] 230 Start: 05-25-2024 End: 05-25-2024 Bamboo flowsheet Gustavo L Buena Vista DO Work Phone: [facility] Start: 04-28-2024 End: 04-28-2024 Bamboo flowsheet Gustavo L Buena Vista DO Work Phone: [facility] 230 Start: 04-28-2024 End: 04-28-2024 Bamboo flowsheet Gustavo L Buena Vista DO Work Phone: [facility] 230 Start: 04-28-2024 End: 04-28-2024 ambulatory GUSTAVO L CUTLER Not Available Start: 04-28-2024 End: 04-28-2024 Office outpatient visit 25 minutes Gustavo L Buena Vista DO Work Phone: [facility] 230 Comment on above: Herpes zoster withou t complication (Primary Dx); Class 3 severe obesity due to excess calories without serious comorbidity with body mass index (BMI) of 40.0 to 44.9 in adult ([facility]); Prediabetes Start: 04-21-2024 End: 04-21-2024 Telephone encounter Gustavo L Buena Vista DO Work Phone: [facility] Start: 04-19-2024 End: 04-19-2024 Bamboo flowsheet Gustavo L Buena Vista DO Work Phone: [facility] Start: 04-19-2024 End: 04-19-2024 Bamboo flowsheet Gustavo L Buena Vista DO Work Phone: [facility] Start: 04-19-2024 End: 04-19-2024 Patient encounter status Gustavo L Buena Vista DO Work Phone: [facility] Start: 04-19-2024 End: 04-19-2024 Periodic preventive med est patient 18-39 yrs Gustavo L Buena Vista DO Work Phone: [facility] Comment on above: Wellness examination (Primary Dx); Vertigo; Insulin resistance; Abnormal weight gain Start: 04-19-2024 End: 04-19-2024 ambulatory GUSTAVO L CUTLER Not Available Start: 01-28-2024 End: 01-28-2024 Office outpatient visit 25 minutes Gustavo L Buena Vista DO Work Phone: [facility] Comment on above: Vertigo (Primary Dx) ; Chronic migraine without aura without status migrainosus, not intractable ([facility]); Fibromyalgia Start: 01-28-2024 End: 01-28-2024 ambulatory GUSTAVO L CUTLER Not Available Start: 01-28-2024 End: 01-28-2024 Bamboo flowsheet Gustavo L Buena Vista DO Work Phone: [facility] Start: 01-28-2024 End: 01-28-2024 Bamboo flowsheet Gustavo L Buena Vista DO Work Phone: [facility] Start: 10-01-[address] NADER BRYAN . Facili ty:[facility]1 Start: 09-26-2022 End: 09-26-2022 ambulatory Nany Glenn Kati [facility] Work Phone: Start: 09-26-2022 End: 09-26-2022 Departed Referred RIDDLER OPERATOR-C Nany Parikh Work Phone: [facility] [place] Work Phone: Start: 01-09-2022 End: 01-10-2022 ambulatory CHRISTINE GRAVES Facility:[facility]1 Start: 12-14-2021 End: 12-15-2021 ambulatory NONE LISTED REQUEST Facility:[facility] Start: 10-22-2021 End: 10-22-[address] CRISTOPHER NASCIMENTO . Facility:[facility] Start: 07-23-2017 Ambulatory SANTO SANCHES [facility] Start: 01-28-2017 End: 01-29-2017 Ambulatory Catherine Fontanez Facility:CD:[id number] Procedures Date Procedure Procedure Detail Performing Clinician Start: 11-30-2024 IGP,APTIMA HPV,AGE GDLN Cristophersamina Tysono DO Work Phone: Start: 11-30-2024 Esophagogastroduodenoscopy transoral diagnostic Esther Holden MD Work Phone: Start: 11-30-2024 Microscopic observation [Identifier] in Cervix by Cyto stain Gustavo Buena Vista DO Work Phone: Start: 09-22-2024 Iaad ia hpylori stool Gustavolaura Bernardo D O Work Phone: Start: 04-22-2024 Complete blood count with white cell differential, automated Gustavo L Buena Vista DO Work Phone: Start: 04-22-2024 Comprehensive metabolic panel Gustavo L Buena Vista DO Work Phone: Start: 04-22-2024 Lipid panel Gustavo L Buena Vista DO Work Phone: Start: 10-26-2023 Microscopic observation [Identifier] in Cervix by Cyto stain Gustavo Buena Vista DO Work Phone: Start: 10-26-2023 Cytp cerv/vag auto thin layer prep mnl screen Cristopher Nascimento DO Work Phone: Start: 10-29-2022 Microscopic observation [Identifier] in Cervix by Cyto stain Gustavo Buena Vista DO Work Phone: Plan of Treatment Date Care Activity Detail Author Start: 12-01-2027 Screening for malignant neoplasm of cervix Pap Smear [facility] Start: 10-30-2027 Screening for malignant neoplasm of cervix [facility] Start: 10-25-2026 Screening for malignant neoplasm of cervix Pap Smear [facility] Start: 02-06-2025 Influenza vaccination [facility] Start: 11-30-2024 End: 11-30-2024 Patient encounter procedure [facility] Comment on above: Arrived Start: 11-30-2024 End: 11-30-2024 Patient encounter procedure 11/30/2024 8:40 AM EDT Appointment [facility] [address] [place] [address] Esther Holden MD [address] [place] [address] [facility] Start: 11-02-2024 End: 11-02-2024 Patient encounter procedure [facility] Start: 10-05-2024 End: 10-05-2024 Patient encounter procedure 10/05/2024 4:20 PM EDT Office Visit [facility] [address] [place] [id number] Gustavo Bernardo DO [address] [place] [address] Arrived [facility] Comment on above: Arrived Start: 08-24-2024 End: 08-24-2024 Professional / ancillary services management 08/24/2024 1:00 PM EDT Ancillary Procedure [facility] [address] [place] [id number] [facility] Start: 08-01-2024 End: 08-01-2025 US Pelvis transvaginal US pelvis transvaginal Imaging Routine IUD check up Expected: 08/01/2024, Expires: 08/01/2025 [facility] Work Phone: Comment on above: Expected: 08/01/2024, Expires: Start: 08-01-2024 End: 08-01-2024 Patient encounter procedure 08/01/2024 1:50 PM EST Office Visit [facility] [address] [place] [address] Monika Messer PA [address] [place] [address] [facility] Start: 08-01-2024 End: 08-01-2024 Patient encounter procedure 08/01/2024 11:40 AM EST Office Visit [facility] [address] [place] [address] Buena Vista, Gustavo L, DO [address] [place] [address] [facility] Start: 06-24-2024 End: 06-24-2024 Patient encounter procedure 06/24/2024 11:20 AM EST Office Visit [facility] [address] [place] [address] Buena Vista, Gustavo L, DO [address] [place] [address] [facility] 230 Start: 05-25-2024 End: 05-25-2024 Patient encounter procedure [facility] 230 Comment on above: Arrived Start: 04-28-2024 End: 04-28-2024 Patient encounter procedure 04/28/2024 9:40 AM EST Office Visit [facility] [address] [place] [phone] Buena Vista, Gustavo L, DO [address] [place] [address] [facility] 230 Start: 02-07-2024 Covid-19 Vaccine ( season) Covid-19 Vaccine ( season) [facility] Start: 02-07-2024 Influenza vaccination Influenza Vaccine (#1) [facility] Start: 01-28-2024 End: 01-28-2024 Patient encounter procedure 01/28/2024 4:20 PM EDT Office Visit [facility] [address] [place] [address] Buena Vista, Gustavo L, DO [address] [place] [address] Arrived [facility] 230 Comment on above: Arrived Start: 09-26-2022 Superficial Wound Culture Superficial Wound Culture [facility] Start: 2013 Screening for malignant neoplasm of cervix Cervical Cancer Screening [facility] Start: 2010 Anxiety Screening Anxiety Screening [facility] Start: 2010 Depression Screening Depression Screening [facility] Start: 2010 Hepatitis C screening Hepatitis C Screening [facility] Start: 2010 HIV screening HIV Screening [facility] Start: 10-07-2003 Urine microalbumin profile DTaP,Tdap,Td Vaccine (6 - Tdap) [facility] Bacteria identified in Unspecified specimen by Aerobe culture [facility] Cytology Cervical or vaginal smear or scraping study Pap Smear Pathology and Cytology Routine Well woman exam with routine gynecological exam Ordered: 11/30/2024 [facility] Work Phone: Comment on above: Ordered: 11/30/2024 End: 11-01-2025 EGD DIAGNOSTIC EGD DIAGNOSTIC Endoscopy Routine Gastroesophageal reflux disease, unspecified whether esophagitis present 1 Occurrences starting 11/01/2024 until 11/01/2025 [facility] [place] Work Phone: Comment on above: 1 Occurrences starting 11/01/2024 until 11/01/2025 Human papilloma viru s DNA [Presence] in Unspecified specimen by Probe with amplification HPV DNA probe, amplified Microbiology Routine Well woman exam with routine gynecological exam Ordered: 11/30/2024 [facility] Comment on above: Ordered: 11/30/2024 Tissue Pathology biopsy report SURGICAL PATHOLOGY Lab Routine Gastroesophageal reflux disease with esophagitis without hemorrhage Ordered: 11/30/2024 [facility] Work Phone: Comment on above: Ordered: 11/30/2024 [facility] Immunizations Immunization Date Immunization Notes Care Provider Vivian fishman 04-03-2008 HPV, unspecified formulation Gustavo Buena Vista DO Work Phone: [facility] 10-27-2007 HPV, unspecified formulation Gustavo Buena Vista DO Work Phone: [facility] 08-30-2007 HPV, unspecified formulation Gustavo Buena Vista DO Work Phone: [facility] 04-12-1998 diphtheria, tetanus toxoids and acellular pertussis vaccine, unspecified formulation Gustavo Buena Vista DO Work Phone: [facility] 04-12-1998 measles, mumps and rubella virus vaccine Gustavo Buena Vista DO Work Phone: [phone] [place] [address] 04-12-1998 trivalent poliovirus vaccine, live, oral Gustavo Buena Vista DO Work Phone: [phone] [place] [address] 03-31-1994 diphtheria, tetanus toxoids and acellular pertussis vaccine, unspecified formulation Gustavo Buena Vista DO Work Phone: [phone] [address] 03-31-1994 haemophilus influenz ae type b vaccine, conjugate unspecified formulation Gustavo Buena Vista DO Work Phone: [phone] [address] 03-31-1994 hepatitis B vaccine, pediatric or pediatric/adolescent dosage Gustavo Buena Vista DO Work Phone: [phone] [place] [address] 03-31-1994 measles, mumps and rubella virus vaccine Gustavo Buena Vista DO Work Phone: [phone] [place] [address] 03-31-1994 trivalent poliovirus vaccine, live, oral Gustavo Buena Vista DO Work Phone: [phone] [address] 04-29-1993 diphtheria, tetanus toxoids and pertussis vaccine Gustavo Buena Vista DO Work Phone: [phone] [place] [address] 04-29-1993 haemophilus influenz ae type b vaccine, conjugate unspecified formulation Gustavo Buena Vista DO Work Phone: [phone] [address] 02-27-1993 diphtheria, tetanus toxoids and pertussis vaccine Gustavo Buena Vista DO Work Phone: [phone] [place] [address] 02-27-1993 haemophilus influenz ae type b vaccine, conjugate unspecified formulation Gustavo Buena Vista DO Work Phone: [phone] [place] [address] 02-27-1993 hepatitis B vaccine, pediatric or pediatric/adolescent dosage Gustavo Buena Vista DO Work Phone: [phone] [place] [address] 02-27-1993 trivalent poliovirus vaccine, live, oral Gustavo Buena Vista DO Work Phone: [phone] [address] 1990 diphtheria, tetanus toxoids and pertussis vaccine Gustavo Buena Vista DO Work Phone: [phone] [address] 1990 haemophilus influenz ae type b vaccine, conjugate unspecified formulation Gustavo Buena Vista DO Work Phone: [facility] 1990 hepatitis B vaccine, pediatric or pediatric/adolescent dosage Gustavo Bernardo DO Work Phone: [facility] 1990 trivalent poliovirus vaccine, live, oral Gustavo Bernardo DO Work Phone: [facility] Payers Date Payer Category Payer Private Health Insurance [id number] 2022 Private Health Insurance [id number] 2013 Private Health Insurance [id number] 1992 Unknown [id number] 2.16.84 [id number] 1992 Unknown [id number] 2.16.84 0.1.534720.3.579.2.593 1992 Unknown [id number] 2.16.84 0.1.142245.3.579.2.593 1992 Unknown [id number] 2.16.84 0.1.994161.3.579.2.593 1992 Unknown [id number] 2.16.8 40.1.723221.3.579.2.9 1992 Unknown [id number] 2.16.84 0.1.180167.3.579.2.9 1992 Unknown [id number] 2.16.84 0.1.949772.3.579.2.9 1992 Unknown [id number] 2.16.84 0.1.171464.3.579.2.9 1992 Unknown [id number] 2.16.84 0.1.471707.3.579.2.9 1992 Unknown [id number] 2.16.84 0.1.508269.3.579.2.1259 1992 Unknown [id number] 2.16.84 0.1.627245.3.579.2.9 1992 Unknown [id number] 2.16.84 0.1.114029.3.579.2.9 1992 Unknown [id number] 2.16.84 0.1.297008.3.579.2.1258 1992 Unknown [id number] 2.16.84 0.1.806625.3.579.2.1258 1992 Unknown [id number] 2.16.84 0.1.643505.3.579.2.1258 1992 Unknown [id number] 2.16.84 0.1.010582.3.579.2.9 1959 Self-pay 1957 Unknown [id number] Unknown [id number] 2.16.8 40.1.121619.3.579.2.531 Social History Date Type Detail Facility Tobacco smoking stat [facility] Unknown if ever smoked [facility] Work Phone: Start: 1990 Sex Assigned At Female [facility] Start: 08-10-2023 End: 10-05-2024 Tobacco smoking status [facility] Ex-smoker [facility] Start: 08-23-2006 End: 08-23-2021 History of tobacco use Current smoker [facility] Start: 08-23-2006 End: 08-23-2021 History of tobacco use Cigarette Smoker [facility] Start: 08-10-2023 End: 09-20-2024 Cigarettes smoked current (pack per day) - Reported 1 [facility] Start: 08-10-2023 End: 10-05-2024 Tobacco use [...] [OSQ] Rather much [facility] (I/We) worried wheth er (my/our) food would run out before [...] Somewhat hard [facility] Tobacco smoking stat [facility] Unknown if ever smoked [facility] Start: 09-28-2024 Sex Female (finding) [facility] Start: 11-30-2024 Alcoholic beverage intake Ex-drinker (finding) [facility] isrrael Functional Status Date Assessment Result Facility 11-02-2024 Patient Health Quest ionnaire 2 item (PHQ-2) [Reported] [facility] 10-05-2024 Patient Health Quest ionnaire 2 item (PHQ-2) [Reported] [facility] 09-21-2024 Patient Health Quest ionnaire 2 item (PHQ-2) [Reported] [facility] Clinical Notes 01-28-2024 to 01-19-2025 Telephone Encounter - Devorah Daily - 01/19/2025 10:08 AM EDTTelephone Encounter - Devorah Daily - 01/19/2025 10:08 AM EDTTelephone Encounter - Gustavo Bernardo DO - 01/14/2025 12:22 PM EDT Note Date & Type Note Facility 01-19-2025 Telephone encounter Note Prior auth dept ([facility] exchange) called to notify us that the aimovig was denied and that we will be receiving a letter regarding the denial. Case # [id number] # [id number] [facility] 01-19-2025 Miscellaneous Notes Prior auth dept ([facility] exchange) called to notify us that the aimovig was denied and that we will be receiving a letter regarding the denial. Case # [id number] # [id number] documented in this encounter [facility] 01-14-2025 Telephone encounter Note Please redo PA for Aimovig. She has taken an SNRI and TCA medication in the past and it will not be used with another CGRP [facility] 01-14-2025 Miscellaneous Notes Please redo PA for Aimovig. She has taken an SNRI and TCA medication in the past and it will not be used with another CGRP documented in this encounter [facility] 11-30-2024 History of Presen t illness Narrative [...] Obesity with body mass index of 30.0-39.9 ([facility]) Psoriasis Sleep difficulties Well woman exam HISTORY PAST MEDICAL HISTORY SOCIAL HISTORY Past Medical History: Diagnosis Date Abnormal uterine bleeding ADHD (attention deficit hyperactivity disorder) Anemia Anxiety Arthritis control counseling Breakthrough bleeding on depo provera Dental disease Dizziness Eczema Fatigue Headache History of ovarian cyst 2011 Menorrhagia Obesity 10/30/2022 Obesity with body mass index of 30.0-39.9 ([facility]) Psoriasis Sleep difficulties Well woman exam Social [...] nursing note reviewed. Exam conducted with a churner present. Vitals: Estimated body mass index is [...] Cristopher Nascimento DO documented in this encounter [facility] 11-30-2024 Note [facility] Patient Name: Renetta Huff Procedure Date: 11/30/2024 8:55 AM Date of : 1990 Age: 34 Gender: Female Race: Unknown Attending MD: Esther Holden MD, [id number] Procedure: Upper GI endoscopy Referring MD: Providers: Esther Holden MD, Jarocho Quevedo ([employer]) Indications: Heartburn Findings: LA Grade A (one or more mucosal breaks less than 5 mm, not extending between tops of 2 mucosal folds) esophagitis was found in the distal esophagus. Biopsies were taken with a cold forceps for histology. Verification of patient identification for the specimen was done by the nurse using the patient's name and date. The entire examined stomach was normal. Biopsies were taken with a cold forceps for histology. Verification of patient identification for the specimen was done by the nurse using the patient's name and date. The examined duodenum was normal. Patient Profile: This is a 34 year old female. Refer to note in patient chart for documentation of history and physical. Impression: - LA Grade A reflux esophagitis. Biopsied. - Normal stomach. Biopsied. - Normal examined duodenum. Recommendation: - Patient has a contact number available for emergencies. The signs and symptoms of potential delayed complications were discussed with the patient. Return to normal activities tomorrow. Written discharge instructions were provided to the patient. - Resume previous diet. - Continue present medications. - Await pathology results. Medicines: Propofol per Anesthesia Procedure: Pre-Anesthesia Assessment: - Prior to the procedure, a History and Physical was performed, and patient medications and allergies were reviewed. The patient is competent. The risks and benefits of the procedure and the sedation options and risks were discussed with the patient. All questions were answered and informed consent was obtained. Patient identification and proposed procedure were verified by the physician, the nurse and the devulcanizer head in the procedure room. Mental Status Examination: alert and oriented. Airway Examination: normal oropharyngeal airway and neck mobility. Respiratory Examination: clear to auscultation. CV Examination: normal. Prophylactic Antibiotics: The patient does not require prophylactic antibiotics. Prior Anticoagulants: The patient has taken no anticoagulant or antiplatelet agents. ASA Grade Assessment: II - A patient with mild systemic disease. After reviewing the risks and benefits, the patient was deemed in satisfactory condition to undergo the procedure. The anesthesia plan was to use monitored anesthesia care (MAC). Immediately prior to administration of medications, the patient was re-assessed for adequacy to receive sedatives. The heart rate, respiratory rate, oxygen saturations, blood pressure, adequacy of pulmonary ventilation, and response to care were monitored throughout the procedure. The physical status of the patient was re-assessed after the procedure. After obtaining informed consent, the endoscope was passed under direct vision. Throughout the procedure, the patient's blood pressure, pulse, and oxygen saturations were monitored continuously. The ENDOSCOPE was introduced through the mouth, and advanced to the second part of duodenum. The upper GI endoscopy was accomplished without difficulty. The patient tolerated the procedure well. Complications: No immediate complications. Procedure Code(s): --- Professional --- 4323 (more content not included)... [facility] 11-30-2024 History and physical note Images from the original note were not included. PROCEDURAL SEDATION HISTORY AND PHYSICAL EXAM SERVICE DATE: 11/30/2024 SERVICE TIME: 8:10 AM SUBJECTIVE HPI: This is a 34 year old female who presents for EGD The patient's chart (including medications, history, allergies, imaging and prior endoscopies) has been reviewed and the patient has been examined. The contents accurately reflect the patient's condition with the following additions or revisions since the H&P was completed. PAST MEDICAL HISTORY: PAST MEDICAL HISTORY Diagnosis Date Migraine, intractable Psoriatic arthritis (HCC) PAST SURGICAL HISTORY: PAST SURGICAL HISTORY Procedure Laterality Date REMOVAL GALLBLADDER MEDICATIONS: Prior to Admission medications as of 11/01/24 1517 Medication Sig Last Dose Taking ixekizumab (TALTZ SYRINGE) 80 mg/mL syringe Inject subcutaneously. Psoriatic arthritis atomoxetine (STRATTERA) 25 mg capsule Take 25 mg by mouth once daily. meclizine HCl (MECLIZINE ORAL) Take 25 mg by mouth. PRN amitriptyline (ELAVIL) 50 mg tablet Take 50 mg by mouth daily at bedtime. naratriptan (AMERGE) 2.5 mg tablet Take 2.5 mg by mouth as needed for migraine headache (see administration instructions). May repeat dose after 4 hours if needed. Maximum daily dose is 5 mg per day. nabumetone (RELAFEN) 750 mg tablet Take 750 mg by mouth two times a day. pantoprazole DR (PROTONIX) 40 mg tablet Take 40 mg by mouth once daily. ALLERGIES: ALLERGIES No Known Allergies OBJECTIVE PHYSICAL EXAM: AIRWAY: LUNGS: Benign lung exam. CARDIAC: Benign cardiac exam. ABDOMEN: Benign abdominal exam. The remainder of the physical exam is noncontributory. SIGNATURE: Esther Holden MD PATIENT NAME: Renetta Hope DATE: November 30, 2024 TIME: 8:10 AM PAGER: [phone] [facility] 11-30-2024 History and physical note Images from the original note were not included. PROCEDURAL SEDATION HISTORY AND PHYSICAL EXAM SERVICE DATE: 11/30/2024 SERVICE TIME: 8:10 AM SUBJECTIVE HPI: This is a 34 year old female who presents for EGD The patient's chart (including medications, history, allergies, imaging and prior endoscopies) has been reviewed and the patient has been examined. The contents accurately reflect the patient's condition with the following additions or revisions since the H&P was completed. PAST MEDICAL HISTORY: PAST MEDICAL HISTORY Diagnosis Date Migraine, intractable Psoriatic arthritis (HCC) PAST SURGICAL HISTORY: PAST SURGICAL HISTORY Procedure Laterality Date REMOVAL GALLBLADDER MEDICATIONS: Prior to Admission medications as of 11/01/24 1517 Medication Sig Last Dose Taking ixekizumab (TALTZ SYRINGE) 80 mg/mL syringe Inject subcutaneously. Psoriatic arthritis atomoxetine (STRATTERA) 25 mg capsule Take 25 mg by mouth once daily. meclizine HCl (MECLIZINE ORAL) Take 25 mg by mouth. PRN amitriptyline (ELAVIL) 50 mg tablet Take 50 mg by mouth daily at bedtime. naratriptan (AMERGE) 2.5 mg tablet Take 2.5 mg by mouth as needed for migraine headache (see administration instructions). May repeat dose after 4 hours if needed. Maximum daily dose is 5 mg per day. nabumetone (RELAFEN) 750 mg tablet Take 750 mg by mouth two times a day. pantoprazole DR (PROTONIX) 40 mg tablet Take 40 mg by mouth once daily. ALLERGIES: ALLERGIES No Known Allergies OBJECTIVE PHYSICAL EXAM: AIRWAY: LUNGS: Benign lung exam. CARDIAC: Benign cardiac exam. ABDOMEN: Benign abdominal exam. The remainder of the physical exam is noncontributory. SIGNATURE: Esther Holden MD PATIENT NAME: Renetta Hope DATE: November 30, 2024 TIME: 8:10 AM PAGER: [phone] documented in this encounter [facility] 11-23-2024 Telephone encounter Note Spoke with patient and discussed medication prior to having her EGD. Monie Draper MA [facility] 11-23-2024 Miscellaneous Notes Spoke with patient and discussed medication prior to having her EGD. Monie Draper MA Started new medications and would like to discuss if she needs to not take any prior to her egd procedure documented in this encounter [facility] 11-23-2024 Telephone encounter Note Started new medications and would like to discuss if she needs to not take any prior to her egd procedure [facility] 11-02-2024 History of Presen t illness Narrative Images from the original note were not included. [facility] ZAHEER Carmen SUBJECTIVE: HPI: Renetta Hope is [...] and cataplexy by a sleep specialist at [facility]. MEDICATIONS - Discontinued: Adipex - Current: Naratriptan [...] Well woman exam documented in this encounter [facility] 11-01-2024 History of Presen t illness Narrative Images from the original note were not included. [facility] PRIMARY CARE PHYSICIAN: [...] any questions or concerns. Esther Holden MD [facility] [address] [place] [address], [address] [place] [address] documented in this encounter [facility] 10-05-2024 History of Presen t illness Narrative Images from the original note were not included. [place], [place] SUBJECTIVE: HPI: Renetta Hope is a [...] without aura without status migrainosus, not intractable ([facility]) Gastroesophageal reflux disease without esophagitis Past Medical History: Diagnosis Date Abnormal uterine bleeding ADHD (attention deficit hyperactivity disorder) ([facility]/HCC) Anemia Anxiety Arthritis control counseling Breakthrough bleeding on depo provera Dental disease Dizziness Eczema Fatigue Headache History of ovarian cyst 2011 Menorrhagia Obesity 10/30/2022 Obesity with body mass index of 30.0-39.9 Sleep difficulties Well woman exam documented in this encounter [facility] 09-21-2024 Telephone encounter Note Please fax sleep study result from home sleep study to [facility] sleep [facility] [phone] [facility] 09-21-2024 Miscellaneous Notes Please fax sleep study result from home sleep study to [facility] sleep [facility] [phone] documented in this encounter [facility] 09-21-2024 History of Presen t illness Narrative Images from the original note were not included. [facility] ZAHEER Carmen SUBJECTIVE: HPI: Renetta Hope is a 33 y.o. female who presents with chief complaint of GERD Pt states that she is here due to acid reflux going on. Pt states that she has had occasional issues for a while. Pt states she has been belching a lot. Pt states she does take a medication for this. Pt states over the last 2-3 weeks and has been consistent and more frequent. Pt states that if she reclines in the slightest she will feel nauseated, has to use the restroom and then when she sits up she belches and feels better. GERD I have reviewed and reconciled the history and medication list with the patient today. Depression: Not at risk (11/02/2024) PHQ-2 PHQ-2 Score: 0 reports that she quit smoking about 3 years ago. Her smoking use included cigarettes. She started smoking about 18 years ago. She has a 15 pack-year smoking history. She has never used smokeless tobacco. She reports current alcohol use. She reports that she does not use drugs. OBJECTIVE: 06/24/2024 11:23 AM 08/01/2024 11:48 AM 08/01/2024 2:18 PM 09/21/2024 11:40 AM 10/05/2024 4:26 PM 11/02/2024 1:05 PM 11/30/2024 3:08 PM Vitals BMI 40.21 kg/m2 39.86 kg/m2 41.63 kg/m2 39.06 kg/m2 37.93 kg/m2 39.87 kg/m2 39.56 kg/m2 BSA (m2) 2.14 m2 2.13 m2 2.18 m2 2.26 m2 2.23 m2 2.28 m2 2.27 m2 Systolic 136 130 140 134 128 126 130 Diastolic 88 82 100 82 76 76 84 Heart Rate 109 100 108 94 106 SpO2 99 % 98 % 98 % 99 % 97 % Temp 97.3 F 98.6 F 97.2 F 99.2 F 97.4 F Height (in) 5' 3 5' 3 5' 6 5' 6 5' 6 Weight (lb) 227 225 235 242 235 247 245.12 Visit Report Report Report Report Report Report [...] Content: Thought content normal. Judgment: Judgment normal. Recent Results (from the past 4 weeks) IGP,APTIMA HPV,AGE GDLN Collection Time: 11/30/24 2:57 PM Result Value Ref Range AGE GDLN ACOG TESTING Note . IGP, APTIMA HPV, RFX 16/18,45 Note . HPV APTIMA Negative Negative ASSESSMENT AND PLAN: Assessment/Plan Diagnoses and all orders for this visit: Epigastric abdominal tenderness without rebound tenderness - Ambulatory referral to Gastroenterology; Future - H. pylori antigen, stool; Future Gastroesophageal reflux disease without esophagitis - pantoprazole (ProtoNix) 40 MG EC tablet; Take 1 tablet (40 mg) by mouth in the morning and 1 tablet (40 mg) before bedtime. Do not crush, chew, or split. - Ambulatory referral to Gastroenterology; Future - H. pylori antigen, stool; Future Attention deficit hyperactivity disorder (ADHD), predominantly inattentive type - atomoxetine (Strattera) 25 MG capsule; Take 1 capsule (25 mg) by mouth Daily Discussed diagnosis and treatment plan extensively, call with H pylori test. RTC prn, discussed appropriate follow up care. Gustavo Bernardo DO Patient Active Problem List Diagnosis Snoring Obesity (BMI 30-39.9) Attention deficit hyperactivity disorder Prediabetes Chronic migraine without aura without status migrainosus, not intractable Gastroesophageal reflux disease without esophagitis Past Medical History: Diagnosis Date Abnormal uterine bleeding ADHD (attention deficit hyperactivity disorder) Anemia Anxiety Arthritis control counseling Breakthrough bleeding on depo provera Dental disease Dizziness Eczema Fatigue Headache History of ovarian cyst 2010 Menorrhagia Obesity 10/30/2022 Obesity with body mass index of 30.0-39.9 ([facility]) Psoriasis Sleep difficulties Well woman exam documented in this encounter [facility] 08-01-2024 History of Presen t illness [...] (BMI 30-39.9) 11/12/2022 Attention deficit hyperactivity disorder ([facility]) 08/10/2023 Prediabetes 08/10/2023 Chronic migraine without aura without status migrainosus, not intractable ([facility]) 08/10/2023 Gastroesophageal reflux disease without esophagitis 08/10/2023 Resolved Ambulatory Problems Diagnosis Date Noted Obesity 10/30/2022 Past Medical History: Diagnosis Date Abnormal uterine bleeding ADHD (attention deficit hyperactivity disorder) ([facility]) Anemia Anxiety Arthritis control counseling Breakthrough bleeding on depo provera Dental disease Dizziness Eczema Fatigue Headache History of ovarian cyst 2011 Menorrhagia Obesity with body mass index of 30.0-39.9 Sleep difficulties Well woman exam HISTORY PAST MEDICAL HISTORY SOCIAL HISTORY Past Medical History: Diagnosis Date Abnormal uterine bleeding ADHD (attention deficit hyperactivity disorder) ([facility]) Anemia Anxiety Arthritis control counseling Breakthrough bleeding [...] of: SYDNEE Roth documented in this encounter [facility] 08-01-2024 History of Presen t illness Narrative Images from the original note were not included. [facility] ZAHEER Carmen SUBJECTIVE: HPI: Renetta Hope is [...] month. She has an appointment with the manager managed care at the end of September 2024. MEDICATIONS [...] aura and without status migrainosus, not intractable ([facility]/HCC) - Rimegepant Sulfate (Nurtec) 75 MG tablet dispersible; Take 75 mg by mouth Daily as needed (at onset of migraine) Class 3 severe obesity due to excess calories without serious comorbidity with body mass index (BMI) of 40.0 to 44.9 in adult (CMS/HCC) - phentermine (Adipex-P) 37.5 MG tablet; Take 1 tablet (37.5 mg) by mouth in the morning. Take before meals. Assessment & Plan 1. Weight management. She has achieved a weight loss of 5 percent over the past 3 months. She will continue her current regimen of Adipex. She is advised to contact the office via MyChart or phone call for prescription refills as [...] Well woman exam documented in this encounter [facility] 06-24-2024 History of Presen t illness Narrative Images from the original note were not included. [facility] ZAHEER Carmen SUBJECTIVE: HPI: Renetta Hope is [...] (BMI) of 40.0 to 44.9 in adult ([facility]) - phentermine (Adipex-P) 37.5 MG tablet; Take [...] Obesity (BMI 30-39.9) Attention deficit hyperactivity disorder ([facility]) Prediabetes Chronic migraine without aura without status migrainosus, not intractable ([facility]) Gastroesophageal reflux disease without esophagitis Past Medical History: Diagnosis Date Abnormal uterine bleeding ADHD (attention deficit hyperactivity disorder) ([facility]) Anemia Anxiety Arthritis control counseling Breakthrough bleeding on depo provera Dental disease Dizziness Eczema Fatigue Headache History of ovarian cyst 2010 Menorrhagia Obesity 10/30/2022 Obesity with body mass index of 30.0-39.9 Sleep difficulties Well woman exam documented in this encounter [facility] 05-25-2024 History of Presen t illness Narrative Images from the original note were not included. [facility] ZAHEER Carmen SUBJECTIVE: HPI: Renetta Hope is [...] of 40.0 to 44.9 in adult (CMS/HCC) - phentermine (Adipex-P) 37.5 MG tablet; Take [...] Obesity (BMI 30-39.9) Attention deficit hyperactivity disorder ([facility]) Prediabetes Chronic migraine without aura without status migrainosus, not intractable ([facility]) Gastroesophageal reflux disease without esophagitis Past Medical History: Diagnosis Date Abnormal uterine bleeding ADHD (attention deficit hyperactivity disorder) ([facility]/HCC) Anemia Anxiety Arthritis control counseling Breakthrough bleeding on depo provera Dental disease Dizziness Eczema Fatigue Headache History of ovarian cyst 2010 Menorrhagia Obesity 10/30/2022 Obesity with body mass index of 30.0-39.9 Sleep difficulties Well woman exam documented in this encounter [facility] 04-28-2024 History of Presen t illness Narrative Images from the original note were not included. [facility] ZAHEER Carmen SUBJECTIVE: HPI: Renetta Hope is [...] minocycline, and different creams prescribed by her jd edwards developer and former family doctor. She has been on spironolactone for at least 6 months. She is currently under the care of a heel curver for her psoriatic arthritis. Depression: Not at [...] (BMI) of 40.0 to 44.9 in adult ([facility]) Prediabetes Assessment & Plan 1. Cold sore. [...] creams. She will continue to see her heel curver for further management. 4. Psoriatic arthritis. She continues to see her heel curver for management of psoriatic arthritis. Follow-up Return [...] Well woman exam documented in this encounter [facility] 04-21-2024 Telephone encounter Note Nope no urine sample necessary for those labs [facility] 04-21-2024 Miscellaneous Notes Nope no urine sample necessary for those labs Pt wanted to know if the lab orders included a urine sample. She is getting them done tomorrow. I told her I didn't think so but if I was wrong I would call her back. documented in this encounter [facility] 04-21-2024 Telephone encounter Note Pt wanted to know if the lab orders included a urine sample. She is getting them done tomorrow. I told her I didn't think so but if I was wrong I would call her back. [facility] 04-19-2024 History of Presen t illness Narrative Images from the original note were not included. [facility] ZAHEER Carmen SUBJECTIVE: HPI: Renetta Hope is [...] Well woman exam documented in this encounter [facility] 01-28-2024 History of Presen t illness [...] or any previous visit (from the past 672 hour(s)). ASSESSMENT AND PLAN: Assessment/Plan Diagnoses and [...] Well woman exam documented in this encounter [facility] Evaluation note No assessment inform ation available [facility] Work Phone: Evaluation note Diagnosis Wellness examination- Primary Vertigo Dizziness and giddiness Insulin resistance Other abnormal glucose Abnormal weight gain [facility] Diagnosis Vertigo- Primary Dizziness and giddiness Chronic migraine without aura without status migrainosus, not intractable ([facility]/HCC) Fibromyalgia Unspecified myalgia and myositis [facility]* Diagnosis Acne, unspecified acne type- Primary Class 3 severe obesity due to excess calories without serious comorbidity with body mass index (BMI) of 40.0 to 44.9 in adult ([facility]) documented in this encounter [facility]* Diagnosis Herpes zoster without complication- Primary Class 3 severe obesity due to excess calories without serious comorbidity with body mass index (BMI) of 40.0 to 44.9 in adult ([facility]) Prediabetes Other abnormal glucose documented in this encounter [facility]* Diagnosis Gastroesophageal reflux disease without esophagitis Esophageal reflux documented in this encounter [facility]* Diagnosis Attention deficit hyperactivity disorder (ADHD), predominantly inattentive type ([facility]) documented in this encounter [facility]* Diagnosis Class 3 severe obesity due to excess calories without serious comorbidity with body mass index (BMI) of 40.0 to 44.9 in adult ([facility]) documented in this encounter [facility]* Diagnosis Migraine without aura and without status migrainosus, not intractable ([facility])- Primary Class 3 severe obesity due to excess calories without serious comorbidity with body mass index (BMI) of 40.0 to 44.9 in adult ([facility]) documented in this encounter [facility]* Diagnosis IUD check up documented in this encounter [facility]* Diagnosis Onset Date Resolution Status Admit Date ADHD (attention deficit hyperactivity disorder) acute September 282024 3:53pm Chronic insomnia acute September 282024 3:53pm Generalized anxiety disorder acute September 28, 2024 3:53pm Hypersomnia acute September 28, 3:53pm Hypnagogic hallucinations acute September 28, 2024 3:53pm Migraine without aura acute Apr 2024 3:53pm Narcolepsy without cataplexy acute September 28, 2024 3:53pm PTSD (post-traumatic stress disorder) acute September 28, 2024 3:53pm Sleep paralysis acute September 3:53pm Snoring acute September 28 3:53pm [facility] Work Phone: Evaluation note* Diagnosis Omphalitis in adult- Primary Unspecified local infection of skin and subcutaneous tissue documented in this encounter [facility]* Diagnosis Class 2 obesity due to excess calories without serious comorbidity with body mass index (BMI) of 39.0 to 39.9 in adult- Primary Acne, unspecified acne type Chronic migraine without aura without status migrainosus, not intractable (CMS/HCC) documented in this encounter [facility]* Diagnosis Gastroesophageal reflux disease, unspecified whether esophagitis present- Primary [facility] Diagnosis Well woman exam with routine gynecological exam Routine gynecological examination documented in this encounter [facility]* Diagnosis Gastroesophageal reflux disease with esophagitis without hemorrhage- Primary [facility] Diagnosis Gastroesophageal reflux disease, unspecified whether esophagitis present [facility] Diagnosis Epigastric abdominal tenderness without rebound tenderness- Primary Gastroesophageal reflux disease without esophagitis Esophageal reflux Attention deficit hyperactivity disorder (ADHD), predominantly inattentive type documented in this encounter [facility] for visit Narrative* Outpatient Procedure (Routine) - Closed Specialty Diagnoses / Procedures Referred By Candice t Referred To Contact ENDOSCOPY Diagnoses Gastroesophageal reflux disease, unspecified whether esophagitis present Procedures EGD DIAGNOSTIC ESOPHAGOGASTRODUODENOSCOP Y TRANSORAL DIAGNOSTIC Esther Holden MD [address] [address] [place] [address] Phone: tel: fax: [facility] [address] [facility] [address] [place] [address] Phone: tel: fax: Referral ID Status Reason Start Date Expiration Date V isits Requested Visits Authorized [id number] Closed Auto-Generate d Referral 11/23/2024 11/01/2025 1 1 [facility] Summary Purpose Family History No Family History [...] section and content) DATE CREATED AUTHOR 11/27/2017 [facility] DATE CREATED AUTHOR AUTHOR'S ORGANIZ ATION 12/02/2017 [facility] DATE CREATED AUTHOR AUTHOR'S ORGANIZ ATION 10/02/2022 [facility] DATE CREATED AUTHOR AUTHOR'S ORGANIZ ATION 10/05/2022 [facility] DATE CREATED AUTHOR AUTHOR'S ORGANIZ ATION 12/01/2024 [facility] EPIC Care Teams (unrecognized sec tion and content) Team Status: Inactive Member Role Status Dates Nany Parikh RIDDLER OPERATOR-C Attending Provider Active Shuttle Filler Relationship Specialty Start Date End Date Gustavo Bernardo DO [address] [place] [address] PCP - General [facility] Medicine 01/28/24 Shuttle Filler Relationship Specialty Start Date End Date Gustavo Bernardo DO [address] [place] [address] PCP - General Family Medicine 01/28/24 Shuttle Filler Relationship Specialty Start Date End Date Gustavo Bernardo DO [address] [place] [address] PCP - General [facility] Medicine 01/28/24 Shuttle Filler Relationship Specialty Start Date End Date Gustavo Bernardo DO [address] [place] [address] PCP - General Family Medicine 01/28/24 Shuttle Filler Relationship Specialty Start Date End Date Nader Bryan MD [address] [facility], [place] [address] PCP - General Family Medicine 10/23/22 Shuttle Filler Relationship Specialty Start Date End Date Nader Bryan MD [address] [facility], [place] [address] PCP - General Family Medicine 10/23/22 Shuttle Filler Relationship Specialty Start Date End Date Gustavo Bernardo DO [address] [place] [address] PCP - General Family Medicine 01/28/24 Shuttle Filler Relationship Specialty Start Date End Date Gustavo Bernardo DO [address] [place] [address] PCP - General Family Medicine 01/28/24 Shuttle Filler Relationship Specialty Start Date End Date Gustavo Bernardo DO [address] [place] [address] PCP - General Family Medicine 01/28/24 Shuttle Filler Relationship Specialty Start Date End Date Gustavo Bernardo DO [address] [place] [address] PCP - General Family Medicine 01/28/24 Shuttle Filler Relationship Specialty Start Date End Date Gustavo Bernardo DO [address] [place] [address] PCP - General Family Medicine 01/28/24 Shuttle Filler Relationship Specialty Start Date End Date Gustavo Bernardo DO [address] [place] [address] PCP - General Family Medicine 01/28/24 Shuttle Filler Relationship Specialty Start Date End Date Gustavo Bernardo DO [address] [place] [address] PCP - General Family Medicine 01/28/24 Shuttle Filler Relationship Specialty Start Date End Date Gustavo Bernardo, DO [address] [place] [address] PCP - General Family Medicine 01/28/24 Team Status: Active Member Role Status Dates Nader Bryan MD Primary Care Provider Active Team Status: Inactive Member Role Status Dates Nader Bryan MD Primary Care Provider Active Start: September 28, 2024 End: September 28, 2024 Malcom Rios MD Attending Provider Active S tart: September 28, 2024 End: September 28, 2024 Referral Self Referring Provider Active Start: Glenn prilevar 2024 End: September 28, 2024 Shuttle Filler Relationship Specialty Start Date End Date Gustavo Bernardo DO [address] [place] [address] PCP - General Family Medicine 01/28/24 Shuttle Filler Relationship Specialty Start Date End Date Gustavo Bernardo DO [address] [place] [address] PCP - General Family Medicine 01/28/24 Shuttle Filler Relationship Specialty Start Date End Date Gustavo Bernardo DO [address] [place] [address] PCP - General Family Medicine 11/01/24 Shuttle Filler Relationship Specialty Start Date End Date Gustavo Bernardo DO [address] [place] [address] PCP - [facility] 11/01/24 Shuttle Filler Relationship Specialty Start Date End Date Gustavo Bernardo DO [address] [place] [address] PCP - [facility] 01/28/24 Shuttle Filler Relationship Specialty Start Date End Date Gustavo Bernardo DO [address] [place] [address] PCP - [facility] 11/01/24 Shuttle Filler Relationship Specialty Start Date End Date Gustavo Bernardo DO [address] [place] [address] PCP - [facility] 11/01/24 Shuttle Filler Relationship Specialty Start Date End Date Gustavo Bernardo DO [address] [place] [address] PCP - General Acute Hospital Medicine 01/28/24 Shuttle Filler Relationship Specialty Start Date End Date Gustavo Bernardo DO [address] [place] [address] PCP - General Acute Hospital Medicine 11/01/24 Goals (unrecognized section and content) Goals may [...] Patient Question Reason Comments Well Women Visit Reason Comments GERD Reason Onset Date Comments Prior Authorization 01/19/2025 Source Comments (unrecognize d section and content) In the event this informatio n is protected by the Federal Confidentiality of Alcohol and Drug Abuse Patient Records regulations: The Federal rules restrict any use of the information to criminally investigate or prosecute any alcohol or drug abuse patient.[facility] the event this information is protected by the Federal Confidentiality of Alcohol and Drug Abuse Patient Records regulations: The Federal rules restrict any use of the information to criminally investigate or prosecute any alcohol or drug abuse patient.[facility] the event this information is protected by the Federal Confidentiality of Alcohol and Drug Abuse Patient Records regulations: The Federal rules restrict any use of the information to criminally investigate or prosecute any alcohol or drug abuse patient.[facility] the event this information is protected by the Federal Confidentiality of Alcohol and Drug Abuse Patient Records regulations: The Federal rules restrict any use of the information to criminally investigate or prosecute any alcohol or drug abuse patient.[facility] HospitalIn the event this information is protected by the Federal Confidentiality of Alcohol and Drug Abuse Patient Records regulations: The Federal rules restrict any use of the information to criminally investigate or prosecute any alcohol or drug abuse patient.[facility] FOR RECORDS PERTAINING TO PATIENTS WHO ARE [...] BE BASED ON THE PRIMARY CLINICAL RECORDS. [facility] madvertise [facility]. provides no warranty or guarantee of the accuracy or completeness of information in this document.
--- OUTSIDE RECORDS SUMMARY | 2025-01-24 01:36 | XMS_ITS | Encounter Summary ---
Author Organization [facility] Address [address] [facility] [place] [address] Care Team Providers Care Junior Network Administrator Name Role Phone Gustavo Bernardo DO Primary Care Provider [phone] Encounter Details Date Type Department Care Team (Late st Contact Info) Description 09/27/2024 [facility] [address] [facility] [address] [place] [phone] Gustavo Bernardo DO [address] [facility] [address] [place] [address] H. pylori antigen, stool Social History Tobacco Use Types Packs/Day Years [...] How often do you attend chur or druze services? Never 09/20/2024 Do you belong to any clubs o r organizations such as pentecostal groups, unions, fraternal or athletic groups, or [...] Date Recorded Patient Health Questionnaire-2 Score 0 09/21/2024 [facility] Rule of Occupat ional Health - Occupational Stress [...] place to sleep or slept in a chcf (including now)? No 08/09/2023 Housing Stability Vital Sign Answer Scott e Recorded In the last 12 months, was t here a time when you were not able to pay the mortgage or rent on time? No 09/20/2024 In the past 12 months, how m any times have you moved where you were living? 0 09/20/2024 At any time in the past 12 m [facility], were you homeless or living in a chcf (including now)? No 09/20/2024 Comments No Sex and Gender Information Value Date Recorded Sex Assigned at Not on file Legal Sex Female 7:05 PM EDT Gender Identity Not on file Sexual Orientation Not on file documented as of this encounter Plan of Treatment Not on file documented as of this encounter Visit Diagnoses Not on filedocumented in this encounter Care Teams Junior Network Administrator Relationship Specialty Start Date End Date Gustavo Bernardo DO [address] [place] [address] PCP - General Family Medicine 01/28/24 documented as of this encounter
--- OUTSIDE RECORDS SUMMARY | 2025-01-24 01:36 | XMS_ITS | Encounter Summary ---
Author Organization [facility] Address [address] [place] [address] Care Team Providers Care Assistant Broker Name Role Phone Gustavo Martinez DO Primary Care Provider [phone] Encounter Details Date Type Department Care Team (Late st Contact Info) Description 01/14/2025 Telephone [facility] [address] [place] [address] Gustavo Martinez DO [address] [place] [address] Social History Tobacco Use Types Packs/Day Years [...] How often do you attend chur or church services? Never 09/20/2024 Do you belong to any clubs o r organizations such as sabianist groups, unions, fraternal or athletic groups, or [...] Recorded Patient Health Questionnaire-2 Score 0 11/02/2024 [facility] of Occupat ional Health - Occupational [...] place to sleep or slept in a assisted (including now)? No 08/09/2023 Housing Stability Vital Sign Answer Scott e Recorded In the last 12 months, was t here a time when you were not able to pay the mortgage or rent on time? No 09/20/2024 In the past 12 months, how m any times have you moved where you were living? 0 09/20/2024 At any time in the past 12 m [facility], were you homeless or living in a assisted (including now)? No 09/20/2024 Comments No Sex and Gender Information Value Date Recorded Sex Assigned at Not on file Legal Sex Female 7:05 PM EDT Gender Identity Not on file Sexual Orientation Not on file documented as of this encounter Miscellaneous Notes * Telephone Encounter - Geetha Denney MA - 01/23/2025 4:40 PM EDT Pt notified * Telephone Encounter - Geetha Denney MA - 01/23/2025 10:52 AM EDT Spoke with pt and informed of this. Order placed up front for pick remover. * Telephone Encounter - Shima Gallegos MA - 01/20/2025 4:08 PM EDT Spoke to pt on the phone and let her know to continue. Pt is wondering if she can get a physical order for a sleep study so she can fax it herself. * Telephone Encounter - Shima Gallegos MA - 01/20/2025 2:46 PM EDT Spoke to pt on the phone about the medication change. Pt was wondering if she should continue her amitriptyline with the topiramate * Addendum Note - Gustavo Martinez DO - 01/20/2025 2:02 PM EDTAddended by: GUSTAVO MARTINEZ on: 01/20/2025 02:02 PM Modules accepted: Orders * Telephone Encounter - Gustavo Martinez DO - 01/20/2025 2:02 PM EDT Unfortunately she will have to try and fail yet another medication. Rx sent for topamamx * Telephone Encounter - Devorah Daily - 01/19/2025 12:57 PM EDT Prior auth dept ([facility] exchange) called to notify us that the aimovig was denied and that we will be receiving a letter regarding the denial. Case # [id number] # [id number] * Telephone Encounter - Shima Gallegos MA - 01/18/2025 7:47 AM EDT PA was Denied * Telephone Encounter - Shima Gallegos MA - 01/16/2025 2:55 PM EDT PA started again * Telephone Encounter - Gustavo Martinez DO - 01/14/2025 12:22 PM EDT Please redo PA for Aimovig. She has taken an SNRI and TCA medication in the past and it will not be used with another CGRP documented in this encounter Plan of Treatment Not on file documented as of this encounter Visit Diagnoses Diagnosis Migraine without aura and without status migrainosus, not intractable- Primary documented in this encounter Care Teams Assistant Broker Relationship Specialty Start Date End Date Gustavo Martinez DO [address] [place] [address] PCP - General Family Medicine 01/28/24 documented as of this encounter
--- OUTSIDE RECORDS SUMMARY | 2025-01-24 01:36 | XMS_ITS | Encounter Summary ---
Author Organization [facility] Address [address] [place] [address] Care Team Providers Care Spray Gun Operator Name Role Phone Gustavo Bernardo DO Primary Care Provider [phone] Encounter Details Date Type Department Care Team (Late st Contact Info) Description 07/07/2024 Abstract [facility] [address] [address] [place] [phone] Gustavo Bernardo DO [address] [place] [address] Social History Tobacco Use Types Packs/Day Years [...] often do you attend chur ch or scientology services? Never 08/09/2023 Do you belong to any clubs o r organizations such as caodaism groups, unions, fraternal or athletic groups, or [...] Date Recorded Patient Health Questionnaire-2 Score 0 04/19/2024 [facility] of Occupat ional Health - Occupational Stress [...] place to sleep or slept in a senior living (including now)? No 08/09/2023 Comments No Sex and Gender Information Value Date Recorded Sex Assigned at Not on file Legal Sex Female 7:05 PM EDT Gender Identity Not on file Sexual Orientation Not on file documented as of this encounter Plan of Treatment Not on file documented as of this encounter Visit Diagnoses Not on filedocumented in this encounter Care Teams Spray Gun Operator Relationship Specialty Start Date End Date Gustavo Bernardo DO [address] [facility] [address] [place] [address] PCP - General Family Medicine 01/28/24 documented as of this encounter
--- OUTSIDE RECORDS SUMMARY | 2025-01-24 01:36 | XMS_ITS | Clinical Summary ---
Author Organization [facility] Address [address] [place] [address] Care Team Providers Care Employee Relations Consultant Name Role Phone TovaGustavo Gunner PARISH Primary Care Provider [phone] Allergies No known active allergies Medications triamcinolone (Kenalog) 0.1 % cream Apply 1 application topically in the morning and 1 application before bedtime. Active Taltz 80 MG/ML injection 12/06/19 23 Active naratriptan (Amerge) 2.5 MG tabletIndication s:Migraine without aura and without status migrainosus, not intractable Take 1 tablet (2.5 mg) by mouth 1 (one) time if needed for migraine 9 tablet 3 08/26/19 25 Active meclizine (Antivert) 25 MG tabletIndication s:Vertigo Take 1 tablet (25 mg) by mouth 3 (three) times a day as needed for dizziness 30 tablet 1 09/03/19 25 Active nabumetone (Relafen) 750 MG tablet 08/25/19 25 Active pantoprazole (ProtoNix) 40 MG EC tabletIndication s:Gastroesophage al reflux disease without esophagitis Take 1 tablet (40 mg) by mouth in the morning and 1 tablet (40 mg) before bedtime. Do not crush, chew, or split. 180 tablet 1 09/22/19 25 Active atomoxetine (Strattera) 25 MG capsuleIndicatio ns:Attention deficit hyperactivity disorder (ADHD), predominantly inattentive type Take 1 capsule (25 mg) by mouth Daily 90 capsule 1 09/22/19 25 Active spironolactone (Aldactone) 50 MG tabletIndication s:Acne, unspecified acne type Take 1 tablet (50 mg) by mouth in the morning and 1 tablet (50 mg) before bedtime. 180 tablet 1 11/03/19 25 Active buPROPion (Wellbutrin) 75 MG tabletIndication s:Class 2 obesity due to excess calories without serious comorbidity with body mass index (BMI) of 39.0 to 39.9 in adult Take 2 tablets (150 mg) by mouth in the morning and 2 tablets (150 mg) before bedtime. 120 tablet 11/03/19 25 2025 Active naltrexone (Depade) 50 MG tabletIndication s:Class 2 obesity due to excess calories without serious comorbidity with body mass index (BMI) of 39.0 to 39.9 in adult Take 1 tablet (50 mg) by mouth Daily 30 tablet 11/03/19 25 2025 Active valACYclovir (Valtrex) 1 g tabletIndication s:Cold sore Take 2 tablets (2,000 mg) by mouth in the morning and 2 tablets (2,000 mg) before bedtime. 4 tablet 2 11/04/19 25 Active amitriptyline (Elavil) 50 MG tabletIndication s:Chronic migraine without aura without status migrainosus, not intractable Take 1 tablet (50 mg) by mouth at bedtime 90 tablet 1 11/16/19 25 Active erenumab (Aimovig) 70 MG/ML injectionIndicat ions:Chronic migraine without aura without status migrainosus, not intractable Inject 1 mL (70 mg) under the skin every 28 (twenty-eight) days 1 mL 2 12/27/19 25 Active topiramate 50 MG tabletIndication s:Migraine without aura and without status migrainosus, not intractable Take 50 mg by mouth Daily 90 tablet 1 01/21/20 25 2025 Active Rimegepant Sulfate (Nurtec) 75 MG tablet dispersibleIndic ations:Chronic migraine without aura without status migrainosus, not intractable Take 75 mg by mouth every other day 16 tablet 2 12/13/19 25 2024 Discontinued Hospital, Clinic, or Other Facility Administered Medication Ordered Dose Route Frequency Start Date End Date Status Levonorgestrel intrauterine device 52 mgIndications:Encounter for insertion of Mirena IUD 52 mg IU As needed 05/07/2023 A ctive Active Problems Problem Noted Date Diagnosed Date Attention deficit hyperactivity disorder 024 Prediabetes 08/10/2023 Chronic migraine without aur a without status migrainosus, not intractable 08/10/2023 Gastroesophageal reflux disease without esophagi tis 08/10/2023 Obesity (BMI 30-39.9) 11/12/2022 Snoring 10/30/2022 Resolved Problems Problem Noted Date Diagnosed Date Resolved Date Obesity 10/30/2022 10/30/2022 Encounters Date Type Department Care Team Description 01/19/2025 Telephone [facility] [address] [place] [address] Gustavo Bernardo, DO Prior Authorization 01/14/2025 Telephone [facility] [address] [place] [address] Gustavo Bernardo, DO 01/14/2025 Orders Only [facility] [address] [place] [address] Gustavo Bernardo, DO 01/11/2025 Abstract [facility] [address] [place] [address] Gustavo Bernardo, DO 12/27/2024 Telephone [facility] [address] [place] [address] Shima Gallegos MA 12/08/2024 Orders Only [facility] [address] [place] [phone] Heather Lynn MA 11/30/2024 2:40 PM EDT Office Visit [facility] [address] [place] [address] Viktor Nascimento, Well woman exam with routine gynecological exam 11/30/2024 Clinisync Result Encounter [facility] External Department Unsolicited Viktor Nascimento, 11/30/2024 Bamboo flowsheet [facility] [address] [place] [address] Viktor Nascimento DO 11/29/2024 Travel 11/25/2024 Telephone [facility] [address] [place] [address] Lorri Delacruz MA fyi 11/15/2024 Refill [facility] [address] [place] [address] Gustavo Bernardo, Chronic migraine without aura without status migrainosus, not intractable 11/02/2024 1:00 PM EDT Office Visit [facility] [address] [place] [address] Gustavo Bernardo DO Class 2 obesity due to excess calories without serious comorbidity with body mass index (BMI) of 39.0 to 39.9 in adult (Primary Dx); Acne, unspecified acne type; Chronic migraine without aura without status migrainosus, not intractable 11/02/2024 Bamboo flowsheet [facility] [address] [place] [address] Gustavo Bernardo DO 11/02/2024 Travel from Last 3 Months Immunizations Immunization Administration Dates Next Due DTP 04/29/1993,02/27/1993,1992 DTaP, Unspecified 04/12/1998,03/31/1994 HPV, Unspecified 04/03/2008,10/27/2007, 8 Hep B, Adolescent or Pediatric 03/31/1994,1992,1992 HiB, unspecified 03/31/1994,04/29/1993,199 3,1992 MMR 04/12/1998,03/31/1994 OPV 04/12/1998,03/31/1994,02/27/1993 ,1992 Family History Medical History Relation Name Comments Cancer Brother Alfredo Mental illness Brother Alfredo 2 brothers No Known Problems Daughter Sabina Diabetes Father Brandon Hypertension Father Brandon Miscarriages / Stillbirths Father's Sister Liudmila Mental illness Maternal Grandmother Depression Mother Fariha Hypertension Mother Fariha Mental illness Mother Fariha Migraines Mother Fariha necrosis in hip Mother Fariha Relation Name Status Comments Brother Alfredo Tony Daughter Sabina Alive Father Brandon Alive Father's Sister Liudmila Maternal Grandmother Mother Fariha Alive Social History Tobacco Use Types Packs/Day Years Used Date Smoking Tobacco: Former Cigarettes 1 15 0 08/23/2006 - 08/23/2021 Smokeless Tobacco: Never Tobacco Cessation:Counseling Given: Yes Comments:Nicotine Vape Alcohol Use Standard Drinks/Week Comments [...] How often do you attend chur or spiritism services? Never 09/20/2024 Do you belong to any clubs o r organizations such as mu-ism groups, unions, fraternal or athletic groups, or [...] Recorded Patient Health Questionnaire-2 Score 0 11/02/2024 [facility] of Occupat ional Health - [...] place to sleep or slept in a long-term (including now)? No 08/09/2023 Housing Stability Vital Sign Answer Scott e Recorded In the last 12 months, was t here a time when you were not able to pay the mortgage or rent on time? No 09/20/2024 In the past 12 months, how m any times have you moved where you were living? 0 09/20/2024 At any time in the past 12 m [facility], were you homeless or living in a long-term (including now)? No 09/20/2024 Comments No Sex and Gender Information Value Date Recorded Sex Assigned at Not on file Legal Sex Female 7:05 PM EDT Gender Identity Not on file Sexual Orientation Not on file Last Filed Vital Signs Vital Sign Reading Time Taken Comments Blood Pressure 130/84 11/30/2024 3:08 PM EDT Pulse 106 11/02/2024 1:05 PM EDT Temperature 36.3 C (97.4 F) 11/02/2024 1:05 PM EDT Respiratory Rate - - Oxygen Saturation 97% 11/02/2024 1:05 PM EDT Inhaled Oxygen Concentration - - Weight 111 kg (245 lb 1.9 oz) 11/30/2024 3:08 PM EDT Height 167.6 cm (5' 6 ) 11/02/2024 1:05 PM EDT Body Mass Index 39.56 11/02/2024 1:05 PM EDT Plan of Treatment Health Maintenance Due Date Last Done Comments Influenza Vaccine (#1) 2025 Cervical Cancer Screening 10/30/2027 HPV/Cotest 10/30/2027 Pap Smear 12/01/2027 11/30/2024, 10/26/2023, 10/07 Procedures Procedure Name Priority Date/Time Associated Diagnosis Comments IGP,APTIMA HPV,AGE GDLN Routine 11/30/2024 2:57 PM EDT PAP SMEAR Routine 11/30/2024 12:00 AM EDT from Last 3 Months Results * IGP,APTIMA HPV,AGE GDLN (11/30/2024 2:57 PM EDT) AGE GDLN AC TESTING Note . [facility] Comment: TESTS RESULT FLAG UNITS REF RANGE LAB Clinician Provided Cytology Information Source.............Cervix;Endocervix No. of containers..01 ThinPrep Vial Age Algo AC Esthela... FLAG LEGEND: L-Low Normal,H-High Normal,LL-Alert Low,HH-Alert High <-Panic Low,>-Panic High,A-Abnormal,AA-Critical Abnormal Performed at: 01 =G [address] [id number] Juliet Tam MD, IGP, APTIMA HPV, RFX 16/18,45 Note . [facility] Comment: TESTS RESULT FLAG UNITS REF RANGE LAB DIAGNOSIS: 02 NEGATIVE FOR INTRAEPITHELIAL LESION OR MALIGNANCY. Specimen adequacy: 02 Satisfactory for evaluation. Endocervical and/or squamous metaplastic cells (endocervical component) are present. Performed by: 02 [employer] Division Field Inspector ([facility]) . 02 Note: Note 02 The Pap [...] <-Panic Low,>-Panic High,A-Abnormal,AA-Critical Abnormal Performed at: [address] [phone] Juliet Tam MD, HPV APTIMA Negative Negative TB Comment: This nucleic acid amplification test detects fourteen high- risk HPV types (16,18,31,33,35,39,45,51,52,56,58,59,66,68) without differentiation. Performed at: = - [address] [id number] Assistant Art Director: Juliet Tam MD, Phone: [phone] Performed at: [address] [id number] Assistant Art Director: Juliet Tam MD, Phone: [phone] 11/30/2024 2:57 PM EDT 11/30/2024 9:06 PM EDT Narrative [facility] - 12/05/2024 12:13 PM EDT BRUSH-SPATULA CERVIX ENDOCERVIX us Viktor Azam DO LAB BLOOD ORDERABLES Final Resul t [facility] TB * Pap Smear (11/30/2024 12:00 AM EDT) Swab Cervical swab / Unknown Viktor Nascimento DO LAB CYTOLOGY ORDERABLES Final Re sult EXTERNAL LAB from Last 3 Months Insurance [facility] Care Teams Employee Relations Consultant Relationship Specialty Start Date End Date Gustavo Bernardo DO [address] [address] PCP - General Family Medicine 01/28/24
--- OUTSIDE RECORDS SUMMARY | 2025-01-24 01:36 | XMS_ITS | Encounter Summary ---
Author Organization [facility] Address [address] [place] [address] Care Team Providers Care Rooming House Keeper Name Role Phone Jesse Bryan MD Primary Care Provider + Gustavo Bernardo DO Primary Care Provider + [phone] Encounter Details Date Type Department Care Team (Late st Contact Info) Description 11/11/2022 Abstract [facility] [address] [place] [address] Yoli Wellington MD [address] [facility] [address] [place] [address] Social History Tobacco Use Types Packs/Day Years Used Date Smoking Tobacco: Former Smokeless Tobacco: Current Alcohol Use Standard Drinks/Week Comments Yes 0 (1 standard drink = 0.6 oz pur e alcohol) Comments Unknown Sex and Gender Information Value Date Recorded Sex Assigned at Not on file Legal Sex Female 7:05 PM EDT Gender Identity Not on file Sexual Orientation Not on file COVID-19 Exposure Response Date Recorded In the last 10 days, have yo u been in contact with someone who was confirmed or suspected to have Coronavirus/COVID-19? No / Unsure 11/12/2022 11:26 AM EDT documented as of this encounter Plan of Treatment Not on file documented as of this encounter Visit Diagnoses Not on filedocumented in this encounter Care Teams Rooming House Keeper Relationship Specialty Start Date End Date Jesse Bryan MD PCP - General Family Medicine 10/23/22 01/27/24 Gustavo Bernardo DO [address] [place] [id number] PCP - General Family Medicine 01/28/24 documented as of this encounter
--- OUTSIDE RECORDS SUMMARY | 2025-01-24 01:36 | XMS_ITS | Encounter Summary ---
Author Organization [facility] Address [address] [place] [address] Care Team Providers Care Client Solutions Specialist Name Role Phone MiddletonGustavo garvey Gunner [place] Primary Care Provider [phone] Encounter Details Date Type Department Care Team (Late st Contact Info) Description 10/03/2024 Orders Only [facility] [address] [address] Michelle Loco, ANODE MACHINE OPERATOR-SDS Snoring (Primary Dx); Gastroesophageal reflux disease without esophagitis; Chronic migraine without aura without status migrainosus, not intractable ; Prediabetes; Obesity (BMI 30-39.9) Social History Tobacco Use Types Packs/Day Years [...] How often do you attend chur or scientologist services? Never 09/20/2024 Do you belong to any clubs o r organizations such as gnosticism groups, unions, fraternal or athletic groups, or [...] Date Recorded Patient Health Questionnaire-2 Score 0 10/05/2024 [facility] of Occupat ional Health - Occupational [...] a skilled nursing (including now)? No 08/09/2023 Housing Stability Vital Sign Answer Scott e Recorded In the last 12 months, was t here a time when you were not able to pay the mortgage or rent on time? No 09/20/2024 In the past 12 months, how m any times have you moved where you were living? 0 09/20/2024 At any time in the past [address] [facility], were you homeless or living in a skilled nursing (including now)? No 09/20/2024 Comments No Sex and Gender Information Value Date Recorded Sex Assigned at Not on file Legal Sex Female 7:05 PM EDT Gender Identity Not on file Sexual Orientation Not on file documented as of this encounter Functional Status * Over the past 2 weeks, how often have you been bothered by any of the following problems? Question Answer Date of Assessment Author Little interest or pleasure in doing things Not at all 10/05/2024 4:33 PM EDT Geetha Denney MA Feeling down, depressed, or hopeless Not at all 10/05/2024 4:33 PM EDT Geetha Denney MA Patient Health Questionnaire -2 Score 0 10/05/2024 4:33 PM EDT Geetha Denney MA documented as of this encounter Plan of Treatment Scheduled Orders Name Type Priority Associated Diagnoses Orde r Schedule Polysomnography Sleep Center Routine Once fo r 1 Occurrences starting 10/03/2024 until 10/03/2024 Home sleep test Sleep Center Routine Once fo r 1 Occurrences starting 10/03/2024 until 10/03/2024 Polysomnography Sleep Center Routine Snoring Gastroesophageal reflux disease without esophagitis Chronic migraine without aura without status migrainosus, not intractable Prediabetes Obesity (BMI 30-39.9) Once for 1 Occurrences starting 10/03/2024 until 10/03/2024 documented as of this encounter Visit Diagnoses Diagnosis Snoring- Primary Other dyspnea and respiratory abnormality Gastroesophageal reflux disease without esophagitis Esophageal reflux Chronic migraine without aura without status migrainosus, not intractable Prediabetes Other abnormal glucose Obesity (BMI 30-39.9) documented in this encounter Care Teams Client Solutions Specialist Relationship Specialty Start Date End Date Gustavo Bernardo DO [address] [address] PCP - General Family Medicine 01/28/24 documented as of this encounter
--- OUTSIDE RECORDS SUMMARY | 2025-01-24 01:36 | XMS_ITS | Encounter Summary ---
Author Organization [facility] Address [address] [place] [address] Care Team Providers Care Advice Clerk Name Role Phone Gustavo Bernardo Primary Care Provider Encounter Details Date Type Department Care Team (Late st Contact Info) Description 10/03/2024 Orders Only [facility] [phone] Michelle Loco, INSPECTOR HEATING AND REFRIGERATION-SDS Social History Tobacco Use Types Packs/Day Years [...] often do you attend chur ch or congregational services? Never 09/20/2024 Do you belong to any clubs o r organizations such as zoroastrian groups, unions, fraternal or athletic groups, or [...] Recorded Patient Health Questionnaire-2 Score 0 [facility] Answer Date Recorded [...] to sleep or slept in a senior care (including now)? No 08/09/2023 Housing Stability Vital Sign Answer Scott e Recorded In the last 12 months, was t here a time when you were not able to pay the mortgage or rent on time? No 09/20/2024 In the past 12 months, how m any times have you moved where you were living? 0 09/20/2024 At any time in the past 12 m [facility], were you homeless or living in a senior care (including now)? No 09/20/2024 Comments No Sex [...] on filedocumented in this encounter Care Teams Advice Clerk Relationship Specialty Start Date End Date Gustavo Bernardo DO [address] [facility] [address] [id number] PCP - General Family Medicine 01/28/24 documented as of this encounter
--- OUTSIDE RECORDS SUMMARY | 2025-01-24 01:37 | XMS_ITS | Clinical Summary ---
Author Organization [facility] Address [address] [place] [id number] Care Team Providers Care Diabetes Educator Name Role Phone Gustavo Bernardo Primary Care Provider Allergies No known active allergies Medications ixekizumab (TALTZ SYRINGE) 80 mg/mL syringe Inject subcutaneously. Psoriatic arthritis Active atomoxetine (STRATTERA) 25 mg capsule Take 25 mg by mouth once daily. Active meclizine HCl (MECLIZINE ORAL) Take 25 mg by mouth. PRN Active amitriptyline (ELAVIL) 50 mg tablet Take 50 mg by mouth daily at bedtime. Active naratriptan (AMERGE) 2.5 mg tablet Take 2.5 mg by mouth as needed for migraine headache (see administration instructions). May repeat dose after 4 hours if needed. Maximum daily dose is 5 mg per day. Active pantoprazole DR (PROTONIX) 40 mg tablet Take 40 mg by mouth once daily. Active etodolac (LODINE-XL) 500 mg 24 hr tablet Take 500 mg by mouth two times a day. Active Active Problems No known active problems Encounters Date Type Department Care Team Description 12/08/2024 Results Follow-Up [facility] [address] [place] [address] Esther Holden MD Results (Bx results) 11/30/2024 8:59 AM EDT Anesthesia Event [facility] [address] [place] [address] Jarocho Quevedo APRN.CERTIFIED PHARMACIST ASSISTANT 11/30/2024 8:06 AM EDT - 11/30/2024 11:59 PM EDT Hospital Encounter [facility] [address] [place] [address] Esther Holden MD Gastroesophageal reflux disease, unspecified whether esophagitis present [K21.9] Discharge Disposition: Home 11/30/2024 Orders Only [facility] [address] [place] [address] Esther Holden MD Gastroesophageal reflux disease with esophagitis without hemorrhage (Primary Dx) 11/23/2024 Telephone [facility] [address] [place] [address] Esther Holden Patient Update; Patient Question 11/01/2024 3:30 PM EDT Office Visit [facility] [address] [place] [address] Esther Holden MD Gastroesophageal reflux disease, unspecified whether esophagitis present (Primary Dx) from Last 3 Months Family History Medical History Relation Comments Anxiety disorder Brother Petros Arrhythmia Brother Petros Depression Brother Petros Diabetes Brother Petros Hypertension Brother Petros Leukemia Brother Alfredo Diabetes Father Hypertension Father Liver Disease Father agent orange Maternal Grandfather Anxiety disorder Maternal Uncle 1 Depression Maternal Uncle 1 Stroke Maternal Uncle 1 Suicide Attempts Maternal Uncle 1 Committed Anxiety disorder Maternal Uncle 2 Depression Maternal Uncle 2 Suicide Attempts Maternal Uncle 2 Committed Anxiety disorder Mother Depression Mother Diabetes Mother Hypertension Mother Migraines Mother Prostate Cancer Paternal Grandfather Uterine Cancer Paternal Grandmother Relation Status Comments Brother Father Maternal Grandfather Maternal Uncle 1 Alive Maternal Uncle 2 Alive Mother Paternal Grandfather Paternal Grandmother Social History Tobacco Use Types Packs/Day Years Used Date Smoking Tobacco: Never Assessed Alcohol Use Standard Drinks/Week Comments Not Currently 0 (1 standard drink = 0.6 oz pur e alcohol) Area Deprivation Index Answer Date Felix rded National Score (1-100), lower number is lower ri sk 67 11/01/2024 State Score (1-10), lower number is lower risk 5 11/01/2024 Data from: https://www.neighborhoodatlas.medicine.[facility].edu/. Last address used for calculation [address] 11/01/2024 Comments Unknown Sex and Gender Information Value Date Recorded Sex Assigned at Not on file Legal Sex Female 9:25 AM EST Gender Identity Not on file Sexual Orientation Not on file Last Filed Vital Signs Vital Sign Reading Time Taken Comments Blood Pressure 109/64 11/30/2024 9:22 AM EDT Pulse 81 11/30/2024 9:22 AM EDT Temperature 36.6 C (97.9 F) 11/30/2024 8:22 AM EDT Respiratory Rate 16 11/30/2024 9:22 AM EDT Oxygen Saturation 96% 11/30/2024 9:22 AM EDT Inhaled Oxygen Concentration - - Weight 111.1 kg (245 lb) 11/30/2024 8:22 AM EDT Height 160 cm (5' 3 ) 11/30/2024 8:22 AM EDT Body Mass Index 43.4 11/30/2024 8:22 AM EDT Plan of Treatment Health Maintenance Due Date Last Done Comments DTaP,Tdap,Td Vaccine (6 - Tdap) 10/07/2003 04/12/1998, 03/31/1994, 04/29/1993, Additional history exists Anxiety Screening 2010 Depression Screening 2010 HIV Screening 2010 Hepatitis C Screening 2010 Cervical Cancer Screening 2013 Influenza Vaccine (#1) 2025 Hepatitis B Vaccine Completed 03/31/1994, 02/27/1993, 1992 HPV Vaccine Completed 04/03/2008, 10/07, 08/30/2007 Procedures Procedure Name Priority Date/Time Associated Diagnosis Comments EGD DIAGNOSTIC Routine 11/30/2024 8:55 AM EDT Gastroesophageal reflux disease, unspecified whether esophagitis present PATHOLOGY REPORT Routine 11/30/2024 PATHOLOGY REPORT Routine 11/30/2024 from Last 3 Months Results * EGD DIAGNOSTIC (11/30/2024 8:55 AM EDT) Anatomical Region Laterality Modality Other 11/30/2024 8:55 AM EDT Narrative 11/30/2024 9:16 AM EDT [facility] Patient Name: Renetta Huff Procedure Date: 11/30/2024 8:55 AM Date of : 1990 Age: 34 Gender: Female Race: Unknown Attending MD: Esther Holden MD, [id number] Procedure: Upper GI endoscopy Referring MD: Providers: Esther Holden MD, Jarocho Quevedo (Atmospheric Technician) Indications: Heartburn Findings: LA Grade A (one [...] by the physician, the nurse and the deputy assessor in the procedure room. Mental Status Examination: [...] immediate complications. Procedure Code(s): --- Professional --- 52617, Esophagogastroduodenoscopy, flexible, transoral; with biopsy, single or multiple Diagnosis Code(s): --- Professional --- K21.00, Gastro-esophageal reflux disease with esophagitis, without bleeding R12, Heartburn CPT copyright 2020 [employer]. All rights reserved. The codes documented in this report are preliminary and upon certified coder review may be revised to meet current compliance requirements. Esther Holden MD 11/30/2024 9:16:09 AM This report has been signed electronically. Number of Addenda: 0 Note Initiated On: 11/30/2024 8:55 AM us Esther Holden MD DIGESTIVE DISEASE Final Resul t * PATHOLOGY REPORT (11/30/2024) Clinical Information Heartburn. Critical access hospital DIAGNOSIS: Critical access hospital Comment: B. DISTAL ESOPHAGUS, BIOPSY: FRAGMENTS OF MILDLY INFLAMED SQUAMOUS AND GASTRIC-TYPE MUCOSA. COMMENT: A special stain (Alcian Blue/PAS) shows no evidence of intestinal metaplasia. A separate special stain (Giemsa) shows no evidence of Helicobacter pylori. There is no evidence of dysplasia or malignancy. Read By MARCOS PONCE MD Critical access hospital Gross description: Critical access hospital Comment: GASTRIC Received in formalin are 5 fragments of wharton tissue measuring 1.9 x 0.3 x 0.1 cm in aggregate. The specimen is submitted entirely in one cassette. DISTAL ESOPHAGUS Received in formalin are 3 fragments of wharton tissue measuring 0.7 x 0.2 x 0.1 cm in aggregate. The specimen is submitted entirely in one cassette. CPT Codes: Critical access hospital Comment: [id number] CPT DISCLAIMER [facility] Comment: Fio ASSUMES NO RESPONSIBILITY FOR THE ACCURACY OF CPT CODES PROVIDED WHICH ARE FOR INFORMATIONAL PURPOSES ONLY. CPT CODES ARE PAYOR SPECIFIC AND CPT CODING IS THE SOLE RESPONSIBILITY OF THE BILLING ENTITY. Place of Service [facility] Comment: Critical access hospital [address] [address] Performing Site [facility] [address],[place] [address] Critical access hospital 11/30/2024 11/30/2024 12: 06 PM EDT Esther Holden MD CYTOLOGY Final Result [facility] [address] [place] [address] Critical access hospital [address] [place] [address] [place] [address] * PATHOLOGY REPORT (11/30/2024) Pathologist [facility] Clinical Information Heartburn. Critical access hospital DIAGNOSIS: Critical access hospital Comment: A. STOMACH, BIOPSY: NO SIGNIFICANT PATHOLOGIC CHANGES. COMMENT: A special stain (Alcian Blue/PAS) shows no evidence of intestinal metaplasia. A separate special stain (Giemsa) shows no evidence of Helicobacter pylori. There is no evidence of dysplasia or malignancy. Read By MARCOS PONCE MD Critical access hospital Gross description: Critical access hospital Comment: GASTRIC Received in formalin are 5 fragments of wharton tissue measuring 1.9 x 0.3 x 0.1 cm in aggregate. The specimen is submitted entirely in one cassette. DISTAL ESOPHAGUS Received in formalin are 3 fragments of wharton tissue measuring 0.7 x 0.2 x 0.1 cm in aggregate. The specimen is submitted entirely in one cassette. CPT Codes: Critical access hospital Comment: [id number] CPT DISCLAIMER [facility] Comment: Fio. ASSUMES NO RESPONSIBILITY FOR THE ACCURACY OF CPT CODES PROVIDED WHICH ARE FOR INFORMATIONAL PURPOSES ONLY. CPT CODES ARE PAYOR SPECIFIC AND CPT CODING IS THE SOLE RESPONSIBILITY OF THE BILLING ENTITY. [facility] Comment: [address] [address] Performing Site [facility] [address],[place] [address] Critical access hospital Comment: Test Performed at: [address] [address] JETT KITCHEN 11/30/2024 11/30/2024 12: 06 PM EDT us Esther Holden MD CYTOLOGY Final Result [facility] [address] [place] [address] [place] [address] from Last 3 Months Insurance AETNA AETNA [facility] CHOICE PLUS Care Teams Diabetes Educator Relationship Specialty Start Date End Date Gustavo Bernardo DO [address] [place] [address] PCP - General Family Medicine 11/01/24
--- NOTE | 2025-01-24 01:52 | ED_ITS ---
HPI HPI - General Adult General Chief complaint: Headache Stated complaint: migraine Time Seen by Provider: 01/24/25 01:34 Source: patient Mode of arrival: walk-in Limitations: no limitations History of Present Illness HPI narrative: This 34-year-old female with a history of migraine headaches presents for evaluation of a migraine headache. The patient states that she was recently prescribed Topamax for her migraines. She took her first dose earlier in the evening and developed a severe migraine. She does not know if this is related to the medication or coincidence. This is a typical migraine for her. It is bitemporal and radiates posteriorly. It is associated with nausea, vomiting and photophobia. She denies any fevers or chills. She has no neck pain or stiffness. She has no weakness numbness or tingling. She denies any chest pain or shortness of breath. She states she was waiting for different medications to be prescribed to her but unable to receive them due to her insurance. Related Data Home Medications ?Medication ?Instructions ?Recorded ?Confirmed amitriptyline 50 mg tablet mg 01/24/25 atomoxetine 25 mg capsule mg PO 01/24/25 ixekizumab 80 mg/mL subcutaneous mg subcut 01/24/25 auto-injector (Taltz Autoinjector) pantoprazole 40 mg tablet,delayed mg PO 01/24/25 release topiramate 50 mg tablet mg 01/24/25 Allergies Allergy/AdvReac Type Severity Reaction Status Date / Time No Known Drug Allergies Allergy Verified 01/24/25 01:39 Opioid HPI Opioid Management Most Recent Opioid Data: Last Pain Scale 8 Today, 02:01 Last ED Pain Assessment Today, 01:45 Last MAR Pain Assessment Today, 02:01 Review of Systems ROS Status of ROS 10 or more systems reviewed and unremark able except as noted in history and below PFSH PFSH Social History Little interest or pleasure in doing things: not at all Feeling down, depressed, or hopeless: not at all Exam Narrative Exam Narrative: Vital signs and Nursing Notes reviewed: Patient is afebrile with a normal pulse, blood pressure is elevated at 150/95, she is not hypoxic with pulse ox of 98% on room air General: Awake, alert, oriented, nontoxic but uncomfortable appearing overweight female resting comfortably in a dark room, no respiratory distress, no active vomiting HEENT: Normocephalic atraumatic, mucous membranes are moist and pink, eyes are clear, normal conjunctiva, vision is grossly intact, mild photophobia noted Neck: Supple, no meningeal signs, no anterior or posterior cervical lymphadenopathy Chest: Lungs are clear to auscultation with good air entry, there is no wheezing rhonchi or rales appreciated no accessory muscle use, patient is speaking in complete sentences-no chest wall tenderness to palpation CVS: Regular rate and rhythm S1-S2, no murmurs rubs or gallops, pulses are brisk and equal bilaterally ABD: Soft, nondistended, nontender, no rebound guarding or rigidity, bowel sounds are normal, no pulsatile masses appreciated Extremities: Moving all extremities, no lower extremity tenderness or swelling noted, negative Homans' sign, pulses are brisk and equal bilaterally Skin: Normal in appearance without rash,pallor, petechiae or purpura Neuro: No focal deficits; speech is clear, there is no facial droop, tester waste disposal leakage strength is intact, upper and lower extremity strength and sensation is intact Constitutional Vital Signs, click to edit/add: Last Vital Signs Temp 97.7 F 01/24/25 01:35 Pulse 85 01/24/25 01:35 Resp 16 01/24/25 01:35 BP 150/95 H 01/24/25 01:35 Pulse Ox 98 01/24/25 01:35 O2 Del Method Room Air 01/24/25 01:35 Course Vital Signs Vital signs: Vital Signs Temperature 97.7 F 01/24/25 01:35 Pulse Rate 85 01/24/25 01:35 Respiratory Rate 16 01/24/25 01:35 Blood Pressure 150/95 H 01/24/25 01:35 Pulse Oximetry 98 01/24/25 01:35 Oxygen Delivery Method Room Air 01/24/25 01:35 Temperature 97.7 F 01/24/25 01:35 Pulse Rate 85 01/24/25 01:35 Respiratory Rate 16 01/24/25 01:35 Blood Pressure 150/95 H 01/24/25 01:35 Pulse Oximetry 98 01/24/25 01:35 Oxygen Delivery Method Room Air 01/24/25 01:35 Medical Decision Making MDM Narrative Medical decision making narrative: This 34-year-old female with a history of migraine headaches who is on multiple medications and was recently prescribed Topamax and started that earlier this evening presents for evaluation of a migraine headache. This is a typical migraine for her which is bitemporal and radiates posteriorly associated with photophobia nausea and vomiting. There was no thunderclap presentation of the headache. She has no neck pain or stiffness. She has no fever. She states she has never had to go to the emergency department for a migraine before. She did her usual things at home without significant improvement. Her neuroexam is normal. Vital signs are stable with an elevated blood pressure at 150/95. An IV is placed and she was medicated with IV fluids, Reglan, Benadryl, Toradol and Decadron. On reevaluation her headache is almost completely resolved and she feels comfortable being discharged home. Discharge Plan Discharge Chief Complaint: Headache Clinical Impression: Migraine Patient Disposition: Home, Self-Care Time of Disposition Decision: 02:42 Condition: Good Prescriptions / Home Meds: No Action amitriptyline 50 mg tablet pantoprazole 40 mg tablet,delayed release (DR/EC) PO atomoxetine 25 mg capsule PO topiramate 50 mg tablet Gabrielle Autoinjector 80 mg/mL auto-injector SUBCUT Print Language: Mohawk Instructions: Migraine Headache (ED) Referrals: Gustavo Bernardo [Primary Care Provider] - 1 week
[2025-01-24] MEDS: KETOROLAC TROMETHAMINE 30 MG/ML VIAL IVP (02:01)
[2025-01-24] MEDS: DIPHENHYDRAMINE HCL 50 MG/ML VIAL 12.5 MG IVP (02:01)
[2025-01-24] MEDS: DEXAMETHASONE SOD PHOS 10 MG/ML VIAL IV (02:02)
[2025-01-24] MEDS: METOCLOPRAMIDE HCL 10 MG/2 ML VIAL IVP (02:02)
[2025-01-24] MEDS: 0.9 % SODIUM CHLORIDE 1,000 ML 1000 ML IV (02:30)
[2025-01-24 02:55] VITALS: BP 112/70; PULSE 80; O2SAT 98
== END 2025-01-24 02:57 | disposition home or self-care (01) ==
PROVIDERS: Emergency Provider Emergency Medicine; PCP Family Medicine
DX: G43.909 Migraine, unspecified, not intractable, without status migrainosus (principal); R11.2 Nausea with vomiting, unspecified; H53.149 Visual discomfort, unspecified
CPT/HCPCS: 96374; 96375; 99284; J1100; J1200; J1885; J2765